=== PATIENT | male | born 1985 | race Caucasian/White ===

== ENCOUNTER 2023-12-20 16:40 | Emergency (ER) | payer BC, SELFPAY ==
[2023-12-20 16:43] VITALS: BP 112/86; BMI 28.5
--- NOTE | 2023-12-20 17:19 | ED.GENMED ---
History of Present Illness
General
Chief Complaint: Abdominal Symptoms
Time Seen by Provider: 12/20/23 17:16
Travel History
Have you had any contact with someone who has COVID-19?: No
Do you have any symptoms of coronavirus? Fever > 100 degrees, chills, cough, shortness of breath, sore throat, loss of taste or smell, muscle aches, or headache?: No
Past History
Past History
ED Past Medical History: Cancer (Brain CA) and Other (thyroidectomy, Adrenal insufficiency)
Social History
Tobacco: Non-smoker
Alcohol: None
Personal:
Living: with family
Phy Exam
Physical Exam
Physical Exam:
Physical Exam
General: no apparent distress, not acutely ill
Neck: No jaundice
Heart: Regular
Lungs: no acute respiratory distress. clear bilaterally
Abdomen: Nontender
Neuro: alert and oriented. no focal neurological deficits
Skin: no rash
Psychiatric: well kept. interactive and cooperative
Extremities: no edema. no calf tenderness.
Course
Orders/Labs/Results
Orders:
Orders
12/20/23 17:19
Electrocardiogram (*1) Stat
Reason for Study: Abdominal Pain
EKG- Treatment ONCE
Complete Blood Count/With Diff Urgent
Comprehensive Metabolic Panel Urgent
NSS 1000mL Bolus WIDE OPEN 0.9% Sodium Chloride 1000 ml [Nss] 1,000 ml IV BOLUS
Ondansetron Injectable [Zofran] 4 mg IV NOW STA
Vital Signs
Initial and Last Documented VS:
Initial Vital Signs
Temp Pulse Resp BP Pulse Ox
98.5 F 95 16 112/86 100
12/20/23 16:43 12/20/23 16:43 12/20/23 16:43 12/20/23 16:43 12/20/23 16:43
Last Documented Vital Signs
Temp Pulse Resp BP Pulse Ox
98.5 F 95 16 112/86 100
12/20/23 16:43 12/20/23 16:43 12/20/23 16:43 12/20/23 16:43 12/20/23 16:43
MDM/Problems Addressed
Differential Diagnosis Includes:
ACS stable angina unstable angina noncardiac chest pain doubt pneumothorax or PE by history physical
MDM/Problems Addressed:
Chest pain
Chronic conditions affecting care: CAD
Acute Exacerbation and/or Progression of Chronic Illness: CAD
*EKG
Interpreted by ED Provider?: Yes
Interpretation: abnormal
Comparison EKG: no comparison EKG present
Heart Rate: 78
Rate: normal
Rhythm: sinus
Ischemia: non-specific ST changes
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
Rate: normal
Interpretation: normal
Heart Rate: 78
ED Attending Note
-
Portions of this chart may have been created with voice recognition software.� Occasional wrong word or��sound alike� substitutions may have occurred due to the inherent limitations of voice recognition software.
Discharge Plan
Departure
Prescriptions:
No Action
levothyroxine 137 mcg Tablet
137 mcg PO DAILY
allopurinol 100 mg Tablet
100 mg PO DAILY
Androderm 4 mg/24 hr Patch 24 Hour
1 patch TRANSDERMAL QPM
metformin 1,000 mg Tablet
1,000 mg PO DAILY
hydrocortisone 10 mg Tablet
10 mg PO DAILY
fenofibrate 160 mg Tablet
160 mg PO DAILY
icosapent ethyl [Vascepa] 1 gram Capsule
2 g PO BID
amoxicillin-pot clavulanate 875-125 mg tablet
1 tab PO BID Qty: 10 0RF
Interventions
Interventions:
*Risk Screen - Suicide Last Done: 12/20/23 16:43
*Neglect/Abuse Screening Last Done: 12/20/23 16:43
*ED COVID-19 Vaccine History Last Done: 12/20/23 16:43
[2023-12-20 17:46] VITALS: BP 133/85
--- NOTE | 2023-12-20 17:49 | ED.GENMED ---
History of Present Illness
General
Chief Complaint: Abdominal Symptoms
Time Seen by Provider: 12/20/23 17:16
Travel History
Have you had any contact with someone who has COVID-19?: No
Do you have any symptoms of coronavirus? Fever > 100 degrees, chills, cough, shortness of breath, sore throat, loss of taste or smell, muscle aches, or headache?: No
History of Present Illness
History of Present Illness:
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 His father attempted to dose him with stress dose hydrocortisone at 25 mg orally however
he vomited probably administration. He denies any abdominal pain or diarrhea at this time. No ill contacts at home. 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
Past History
Past History
ED Past Medical History: Cancer (Brain CA) and Other (thyroidectomy, Adrenal insufficiency)
Social History
Tobacco: Non-smoker
Alcohol: None
Personal:
Living: with family
Review of Systems
Review of Systems
Allergies reviewed?: Yes
All Other Systems: ROS reviewed and negative except as documented in HPI and ROS
Phy Exam
Physical Exam
Physical Exam:
GEN: Well appearing, NAD, WDWN
Eyes: PERRLA, EOMs intact, no scleral icterus
HENT: NCAT, oral mucosa moist
Lungs: CTAB, no wheezes, rales, rhonchi, normal chest wall excursion
Cardiac: RRR, no M/R/G, no peripheral edema. Radial pulses 2+ bilat
Abdomen: S, NT, ND, NABS, no masses or hepatosplenomegaly
Neuro: AO x 3
MSK: No gross deformity or ecchymosis. No edema. No digital clubbing
Skin: No rashes, petechiae. Normal color, no pallor or jaundice.
Psych: Calm, cooperative, proper hygiene
Course
Orders/Labs/Results
Orders:
Orders
12/20/23 17:19
Electrocardiogram (*1) Stat
Reason for Study: Abdominal Pain
0.9% Sodium Chloride 1000 ml [Nss] 1,000 ml IV BOLUS
Ondansetron Injectable [Zofran] 4 mg IV NOW STA
12/20/23 17:25
Lactated Ringers [Lr] 1,000 ml IV BOLUS
12/20/23 17:26
Hydrocortisone Sod Succinate [Solu-Cortef] 100 mg IV NOW STA
12/20/23 17:27
Ondansetron Injectable [Zofran] 4 mg IV NOW STA
12/20/23 17:37
Complete Blood Count/With Diff Urgent
Comprehensive Metabolic Panel Urgent
Lipase Urgent
Abnormal Lab Results
12/20/23
17:37
RBC 4.32 L 10^6/uL
(4.70-6.10)
Hgb 12.9 L g/dL
(13.0-18.0)
Hct 34.3 L %
(39.0-52.0)
MCV 79.4 L fL
(80.0-94.0)
MCHC 37.6 H g/dL
(33.0-37.0)
Absolute Lymphs (auto) 0.7 L 10^3/uL
(1.2-3.4)
Neutrophils % 84.7 H %
(42.2-75.2)
Lymphocytes % 9.2 L %
(20.5-51.1)
Chloride 96 L mmol/L
(98-107)
Carbon Dioxide 31 H mmol/L
(22-30)
BUN 25 H mg/dl
(9-20)
Glucose 181 H mg/dl
(70-99)
Total Bilirubin 1.7 H mg/dl
(0.2-1.3)
AST 85 H U/L
(17-59)
ALT 114 H U/L
(0-50)
Total Protein 8.9 H g/dl
(6.3-8.2)
Albumin 5.5 H g/dl
(3.5-5.0)
12/20/23 17:37
12/20/23 17:37
Vital Signs
Initial and Last Documented VS:
Initial Vital Signs
Temp Pulse Resp BP Pulse Ox
98.5 F 95 16 112/86 100
12/20/23 16:43 12/20/23 16:43 12/20/23 16:43 12/20/23 16:43 12/20/23 16:43
Last Documented Vital Signs
Temp Pulse Resp BP Pulse Ox
98.5 F 85 16 118/91 96
12/20/23 16:43 12/20/23 20:09 12/20/23 20:09 12/20/23 20:00 12/20/23 20:09
MDM/Problems Addressed
MDM/Problems Addressed:
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 He does appear clinically well but certainly there is concern for adrenal crisis as he has not been able to tolerate his home stress dose hydrocortisone. He was
given 100 mg stress dosing here. He was observed with IV fluids and there was no significant change to his blood pressures, shock index improved. Suitable for discharge to home. Likely self-limited viral syndrome. Has no abdominal tenderness
warranting imaging
*Critical Care Note
Total Time (30-74mins, 75-104mins- exclusive of procedures): Not Applicable
ED Attending Note
-
Portions of this chart may have been created with voice recognition software.� Occasional wrong word or��sound alike� substitutions may have occurred due to the inherent limitations of voice recognition software.
Discharge Plan
Departure
Patient Disposition: Home (Routine Discharge)
Date of Disposition: 12/20/23
Time of Disposition: 20:21
Patient with high blood pressure during this ER visit?: No
Discharge Problem:
Gastroenteritis
Instructions: Nausea and Vomiting, Adult (DC)
Prescriptions:
New
ondansetron 4 mg tablet,disintegrating
4 mg PO TIDPRN PRN (Reason: nausea/vomiting) Qty: 10 0RF
No Action
levothyroxine 137 mcg Tablet
137 mcg PO DAILY
allopurinol 100 mg Tablet
100 mg PO DAILY
Androderm 4 mg/24 hr Patch 24 Hour
1 patch TRANSDERMAL QPM
metformin 1,000 mg Tablet
1,000 mg PO DAILY
hydrocortisone 10 mg Tablet
10 mg PO DAILY
fenofibrate 160 mg Tablet
160 mg PO DAILY
icosapent ethyl [Vascepa] 1 gram Capsule
2 g PO BID
amoxicillin-pot clavulanate 875-125 mg tablet
1 tab PO BID Qty: 10 0RF
Referrals:
Umair Mejia MD [Family Provider] -
Activity Restrictions/Additional Instructions:
Take 30mg hydrocortisone tomorrow
If symptoms improve, take 20mg on Thursday then resume your normal dosing thereafter
Return if you cannot keep fluids/medications down
Interventions
Interventions:
*Risk Screen - Suicide Last Done: 12/20/23 16:43
*Neglect/Abuse Screening Last Done: 12/20/23 16:43
ED- Fall Risk Assessment Last Done: 12/20/23 18:00
*ED COVID-19 Vaccine History Last Done: 12/20/23 16:43
*Nursing Disposition Last Done: 12/20/23 20:22
JB-Tjylwa-Tgwtucmqkh Assessment Last Done: 12/20/23 18:00
Discharge Date and Time
Discharge Date/Time: 12/20/23 20:23
[2023-12-20] MEDS: LR 1000 IV (18:02)
[2023-12-20] MEDS: SOLU-CORTEF 100 MG IV (18:03)
[2023-12-20] MEDS: ZOFRAN 4 MG IV (18:03)
[2023-12-20 18:14] LABS: % Basophils 0.4 % (0-2); % Eosinophils 1.7 % (0-6); % Immature Granulocytes 0.3 % (0-0.5); % Lymphocytes 9.2 % (20.5-51.1); % Monocytes 3.7 % (1.7-9.3); % Neutrophils 84.7 % (42.2-75.2); Absolute Eosinophils 0.1 10^3/uL (0-0.7); Absolute Lymphocytes 0.7 10^3/uL (1.2-3.4); Absolute Monocytes 0.3 10^3/uL (0.1-0.6); Hematocrit 34.3 % (39.0-52.0); Mean Corp Hgb Conc. 37.6 g/dL (33.0-37.0); Mean Corpuscular Hgb 29.9 pg (27.0-31.0); Mean Corpuscular Volume 79.4 fL (80.0-94.0); Mean Platelet Volume 10.1 fL (7.4-10.4); Nucleated Red Blood Cells % 0 % (-); Platelet Count 178 10^3/uL (130-400); Red Blood Cell Count 4.32 10^6/uL (4.70-6.10); Red Cell Dist. Width 13.1 % (11.5-14.5); White Blood Cell Count 7.1 10^3/uL (4.8-10.8)
[2023-12-20 18:25] LABS: ALT (SGPT) 114 U/L (0-50); AST (SGOT) 85 U/L (17-59); Albumin 5.5 g/dl (3.5-5.0); Alkaline Phosphatase 66 U/L (38-126); Blood Urea Nitrogen 25 mg/dl (9-20); Calcium 8.9 mg/dl (8.4-10.2); Carbon Dioxide 31 mmol/L (22-30); Chloride 96 mmol/L (98-107); Estimated Creatinine Clearance 91 ml/min; Glucose 181 mg/dl (70-99); Lipase 180 U/L (23-300); Potassium 4.1 mmol/L (3.5-5.1); Sodium 136 mmol/L (135-145); Total Bilirubin 1.7 mg/dl (0.2-1.3); Total Protein 8.9 g/dl (6.3-8.2); eGFR > 60.00
[2023-12-20 18:51] LABS: Hemoglobin 12.9 g/dL (13.0-18.0)
[2023-12-20 19:26] VITALS: BP 111/77
[2023-12-20 19:29] VITALS: BP 117/87
[2023-12-20 20:00] VITALS: BP 118/91
== END 2023-12-20 20:23 | disposition home or self-care (01) ==
LOC: EMR 16:40
PROVIDERS: Physician Assistant; EMERGENCY PHYSICIAN Emergency Medicine; FAMILY PHYSICIAN Family Medicine
DX: K52.9 Noninfective gastroenteritis and colitis, unspecified (principal); R11.2 Nausea with vomiting, unspecified; E23.0 Hypopituitarism; E27.40 Unspecified adrenocortical insufficiency; Z85.841 Personal history of malignant neoplasm of brain
CPT/HCPCS: 99283; 96374; 96375; 80053; 83690; 85025

== ENCOUNTER 2024-09-01 07:13 | Emergency (ER) | payer BC, SELFPAY ==
[2024-09-01] VITALS (7 sets, daily range): BP systolic 100–124; BP diastolic 65–80; BMI 29.6
--- NOTE | 2024-09-01 07:46 | ED.GENMED ---
History of Present Illness
General
Chief Complaint: Fever
Source: patient and family
Exam Limitations: none
Time Seen by Provider: 09/01/24 07:27
History of Present Illness
History of Present Illness:
pt is a 39 y/o M with h/o panhypopituitarism on hydrocortisone
brain tumor age 2 s/p resection
here with nausea/vomiting x 3 and fever/chils this morning
went to bed feeling well
daughter also has fever and belly pain but no vomiting
at 3 am nausea woke him up. by 5 am he had temp 99. took 1000 mg of tylenol and 20 mg hydrocortisone
then took all daily meds at 5:25
and promptly vomited, 3 times
then he did take another 20 mg dose of hydrocortisone at 5:35 am
temp rising
so he is here
he doesn't feel very ill
no abdominal pain, sore throat, cough.
no diarrhea
Past History
Past History
ED Past Medical History: Cancer (Brain CA) and Other (thyroidectomy, Adrenal insufficiency)
Social History
Tobacco: Non-smoker
Alcohol: None
Personal:
Living: with family
Review of Systems
Review of Systems
Allergies reviewed?: Yes
All Other Systems: Not applicable
Phy Exam
Physical Exam
Physical Exam:
GENERAL: Alert , in no apparent distress, very well appearing
EYE: pupils equal and reactive
NECK: Supple
ENT: o/p clr, mmm.
[employer] [place] wears hearing aides
CARDIAC: tachy, no murmur
LUNGS: Clear breath sounds bilaterally, no acute respiratory distress, no wheezes/rales/rhonchi
ABDOMEN: Soft, without focal tenderness, no r/g, no cvat, normal bowel sounds
NEUROLOGICAL: Alert and oriented, no focal neuro deficits
SKIN: Warm and dry, skin intact.
MUSCULOSKELETAL: No edema, well perfused. neg fabio's sign
PSYCH: Normal and appropriate interaction.
Course
Orders/Labs/Results
Orders:
Orders
09/01/24 07:39
0.9% Sodium Chloride 1000 ml [Nss] 1,000 ml IV BOLUS
Hydrocortisone Sod Succinate [Solu-Cortef] 100 mg IV NOW STA
Ondansetron Injectable [Zofran] 4 mg IV NOW STA
09/01/24 07:46
Ibuprofen [Motrin] 600 mg PO NOW STA
09/01/24 08:09
COVID-19 Antigen Urgent
Source: Nasal Swab
Complete Blood Count/With Diff Urgent
Comprehensive Metabolic Panel Urgent
Lactic Acid Q4H
Comment: CANCEL 2nd LACTIC ACID IF 1st LACTIC ACID IS LESS THAN 2
Lipase Urgent
Blood Culture Urgent
MOIRA Source: Blood/Venous
Specimen Description:
Influenza A+B Rapid Molecular Urgent
MOIRA Source: Nasal Swab
Specimen Description:
09/01/24 09:42
0.9% Sodium Chloride 1000 ml [Nss] 1,000 ml IV BOLUS
09/01/24 11:24
Urinalysis Reflex To Culture Urgent
Date Specimen was Collected: 09/01/24
Time Specimen was Collected: 10:48
09/01/24 11:45
Lactic Acid Q4H
Comment: CANCEL 2nd LACTIC ACID IF 1st LACTIC ACID IS LESS THAN 2
Abnormal Lab Results
09/01/24 09/01/24
08:09 11:45
RBC 4.33 L 10^6/uL
(4.70-6.10)
Hgb 12.1 L g/dL
(13.0-18.0)
Hct 34.4 L %
(39.0-52.0)
MCV 79.4 L fL
(80.0-94.0)
Absolute Lymphs (auto) 0.5 L 10^3/uL
(1.2-3.4)
Neutrophils % 87.0 H %
(42.2-75.2)
Lymphocytes % 6.2 L %
(20.5-51.1)
Chloride 96 L mmol/L
(98-107)
BUN 23 H mg/dl
(9-20)
Glucose 187 H mg/dl
(70-99)
Lactic Acid 2.4 H mmol/L 2.3 H mmol/L
(0.7-2.0) (0.7-2.0)
Calcium 7.8 L mg/dl
(8.4-10.2)
09/01/24 08:09
09/01/24 08:09
Vital Signs
Initial and Last Documented VS:
Initial Vital Signs
Temp Pulse Resp BP Pulse Ox
100.4 F H 114 18 100/65 98
09/01/24 07:15 09/01/24 07:15 09/01/24 07:15 09/01/24 07:15 09/01/24 07:15
Last Documented Vital Signs
Temp Pulse Resp BP Pulse Ox
99.2 F 71 18 112/74 96
09/01/24 09:37 09/01/24 12:00 09/01/24 07:15 09/01/24 12:00 09/01/24 10:00
MDM/Problems Addressed
Differential Diagnosis Includes:
gastroenteritis, covid,, flu, uti, sepsis
MDM/Problems Addressed:
39 y/o M with adrenal insuff
prior brain turmo resection
here with n/v and chilld/fever this morning
vomited his hydrocortisone dose x 2 and then was able to keep one dose down
having no pain
feels better on arrival
temp treated with tylenol
his daughter has a fever and belly pain too so he is presuming ther is a virus
pt is febrile on arrival, mildly tachy with borderling low bp 100s
but he is extremely well appearing
abd nontender
no other concerning infectious signs
d/w ed attending
will treat with stress dose steroids, w/u with lactate and cultures
if pt is persistently hypotensive, willl require admission
lactate eleavrted 2.4 but pt is on metformin
wbc normal with left shift
covid and flu neg
will check UA
bg 180s which is typical for him
will hydrate, observe, recheck lactic
lactic minimally improved; not cleared but not worse and d/w ed attending, likely related to his metofmrin use
bp is much improved
pt tolerated po fluids and would like to go home with understanding to return if worse or vomiting.
*Critical Care Note
Total Time (30-74mins, 75-104mins- exclusive of procedures): Not Applicable
ED Attending Note
-
Portions of this chart may have been created with voice recognition software.� Occasional wrong word or��sound alike� substitutions may have occurred due to the inherent limitations of voice recognition software.
Discharge Plan
Departure
Patient Disposition: Home (Routine Discharge)
Date of Disposition: 09/01/24
Time of Disposition: 12:15
Patient with high blood pressure during this ER visit?: No
Condition: Fair
Covid-19: Not Applicable
Discharge Problem:
Gastroenteritis
Instructions: Viral gastroenteritis in adults, Viral Syndrome (DC)
Prescriptions:
New
ondansetron 4 mg tablet,disintegrating
4 mg PO TID PRN (Reason: nausea and vomiting) 1 Days Qty: 2 0RF
No Action
levothyroxine 137 mcg Tablet
137 mcg PO DAILY
allopurinol 100 mg Tablet
100 mg PO DAILY
Androderm 4 mg/24 hr Patch 24 Hour
1 patch TRANSDERMAL QPM
metformin 1,000 mg Tablet
1,000 mg PO DAILY
hydrocortisone 10 mg Tablet
10 mg PO DAILY
fenofibrate 160 mg Tablet
160 mg PO DAILY
icosapent ethyl [Vascepa] 1 gram Capsule
2 g PO BID
amoxicillin-pot clavulanate 875-125 mg tablet
1 tab PO BID Qty: 10 0RF
ondansetron 4 mg tablet,disintegrating
4 mg PO TIDPRN PRN (Reason: nausea/vomiting) Qty: 10 0RF
Referrals:
Umair Mejia MD [Family Provider] - Follow up in 2-3 days
Activity Restrictions/Additional Instructions:
CONTINUE YOUR MEDICATIONS
WATCH YOUR SYMPTOMS CLOSELY
RETURN FOR VOMITING/INABILITY TO KEEP DOWN LIQUIDS AND MEDICATIONS, HIGH FEVER NOT RESPONDING TO TYLENOL, LOW BLOOD PRESSURE/WEAKNESS, ABDOMINAL PAIN, SHAKING CHILLS ETC
OTHERWISE YOU CAN TAKE ZOFRAN EVERY 8 HOURS NEEDED FOR NAUSEA
BUT PLEASE HAVE LOW THRESHOLD TO RETURN IF WORSE
Interventions
Interventions:
*Risk Screen - Suicide Last Done: 09/01/24 07:15
*General Assessment Last Done: 09/01/24 07:38
*Neglect/Abuse Screening Last Done: 09/01/24 07:15
*Nursing Disposition Last Done: 09/01/24 12:35
ED- Neurological Assessment Last Done: 09/01/24 08:44
ED-Skin Assessment Last Done: 09/01/24 08:44
Discharge Date and Time
Discharge Date/Time: 09/01/24 12:35
Print Language: LATVIAN
[2024-09-01] MEDS: NSS 1000 IV ×2 (08:13→10:08)
[2024-09-01] MEDS: ZOFRAN 4 MG IV (08:14)
[2024-09-01] MEDS: MOTRIN 600 MG PO (08:14)
[2024-09-01] MEDS: SOLU-CORTEF 100 MG IV (08:14)
[2024-09-01 08:43] LABS: % Basophils 0.4 % (0-2); % Eosinophils 1.2 % (0-6); % Immature Granulocytes 0.4 % (0-0.5); % Lymphocytes 6.2 % (20.5-51.1); % Monocytes 4.8 % (1.7-9.3); Absolute Eosinophils 0.1 10^3/uL (0-0.7); Absolute Lymphocytes 0.5 10^3/uL (1.2-3.4); Absolute Monocytes 0.4 10^3/uL (0.1-0.6); Absolute Neutrophils 6.3 10^3/uL (1.4-6.5); Hematocrit 34.4 % (39.0-52.0); Hemoglobin 12.1 g/dL (13.0-18.0); Mean Corp Hgb Conc. 35.2 g/dL (33.0-37.0); Mean Corpuscular Hgb 27.9 pg (27.0-31.0); Mean Corpuscular Volume 79.4 fL (80.0-94.0); Mean Platelet Volume 9.8 fL (7.4-10.4); Nucleated Red Blood Cells % 0 % (-); Platelet Count 178 10^3/uL (130-400); Red Blood Cell Count 4.33 10^6/uL (4.70-6.10); White Blood Cell Count 7.3 10^3/uL (4.8-10.8)
[2024-09-01 08:47] LABS: COVID-19 Antigen Negative (Negative)
[2024-09-01 08:50] LABS: ALT (SGPT) 47 U/L (0-50); AST (SGOT) 44 U/L (17-59); Albumin 4.7 g/dl (3.5-5.0); Alkaline Phosphatase 50 U/L (38-126); Blood Urea Nitrogen 23 mg/dl (9-20); Calcium 7.8 mg/dl (8.4-10.2); Carbon Dioxide 27 mmol/L (22-30); Chloride 96 mmol/L (98-107); Estimated Creatinine Clearance 116 ml/min; Glucose 187 mg/dl (70-99); Lipase 126 U/L (23-300); Potassium 3.8 mmol/L (3.5-5.1); Sodium 138 mmol/L (135-145); Total Protein 7.3 g/dl (6.3-8.2); eGFR > 60.00
[2024-09-01 08:54] LABS: Lactic Acid 2.4 mmol/L (0.7-2.0)
[2024-09-01 12:04] LABS: Urine Albumin Negative (Neg - Trace); Urine Bilirubin Negative (Negative); Urine Character Clear (Clear); Urine Color Yellow; Urine Glucose Negative (Negative); Urine Ketone Negative (Negative); Urine Leukocyte Negative (Negative); Urine Nitrite Negative (Negative); Urine Occult Blood Negative (Negative); Urine Specific Gravity 1.005 (<1.030); Urine Urobilinogen Negative (Neg - 1+); Urine pH 6.5 (5.0-9.0)
[2024-09-01 12:08] LABS: Lactic Acid 2.3 mmol/L (0.7-2.0)
== END 2024-09-01 12:35 | disposition home or self-care (01) ==
LOC: EMR 07:13
PROVIDERS: Physician Assistant; EMERGENCY PHYSICIAN Emergency Medicine; FAMILY PHYSICIAN Family Medicine
DX: K52.9 Noninfective gastroenteritis and colitis, unspecified (principal); E23.0 Hypopituitarism; E27.40 Unspecified adrenocortical insufficiency; Z85.841 Personal history of malignant neoplasm of brain
CPT/HCPCS: 99283; 96374; 96375; 96361; 80053; 81003; 83605; 83690; 85025; 87040; 87502; 87811

== ENCOUNTER 2025-06-10 13:11 | Inpatient (IN) | payer BC, SELFPAY ==
[2025-06-10] VITALS (16 sets, daily range): BP systolic 57–124; BP diastolic 47–88; PULSE 90–105; BMI 28.8; BMI 29.2
--- NOTE | 2025-06-10 09:03 | ED.GENMED ---
History of Present Illness
<Kathie Dyson MD, Resident - Last Filed: 06/10/25 12:24>
General
Chief Complaint: Fainting/Passed Out
Source: patient
Time Seen by Provider: 06/10/25 08:43
History of Present Illness
History of Present Illness:
Mr. 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 He
reports that he does not remember the incident nor what happened before or after. He does endorse feeling congested and having a gurgly cough for the last 2 days. His is recovering from a cold (DayQuil/NyQuil helped) and he thinks that he
caught it this week. He also reports getting a nosebleed last night, which is unusual for him. This lasted about 2 minutes. Per EMS, this morning he was walking to the bathroom and had a syncopal event. By the time his got up stories to
him, he was already awake and did not remember what happened. He thinks he may have hit his head. He denies fevers, chills, nausea, vomiting, pain, vision changes, changes in diet, or /GI symptoms.
UPDATE @ 9:30 AM: Spoke to his Rebekah over the phone to gather more history. She states Víctor woke up around 5 AM with a nosebleed that lasted about 2 minutes. She reports it is common for him and he went back to sleep. Later in the morning
when she woke up, she reports that Víctor greeted her downstairs and seemed completely fine to her. He went upstairs to get laundry and it was at that time that she heard a loud thud. She reports running upstairs to find him passed out on the
bathroom floor. She reports having to shake him for 20 to 30 seconds before he started to wake up. She reports that he was confused and disoriented for a few minutes afterwards and had a huge 'egg' on his forehead from his fall. She states that
by the time EMS showed up, Víctor was completely alert and oriented, and this is his baseline. Rebekah does not know for sure if Víctor took his morning medications, but states that he told her that he took them. She endorses that he has had a cold
this week but no fevers nor vomiting, which are usual clues for his family that Víctor needs to seek care for acute on chronic adrenal insufficiency.
Past History
<Kathie Dyson MD, Resident - Last Filed: 06/10/25 12:24>
Past History
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
ED Past Surgical History: Brain (Tumor resection in marker delivery) and Other (Thyroidectomy)
Social History
Tobacco: Non-smoker
Alcohol: None
Personal:
Living: with family
Review of Systems
<Kathie Dyson MD, Resident - Last Filed: 06/10/25 12:24>
Review of Systems
All Other Systems: ROS reviewed and negative except as documented in HPI and ROS
EENT: Reports other (Dried blood in nares and on lips, dry mucous membranes)
Respiratory: Reports cough
Phy Exam
<Kathie Dyson MD, Resident - Last Filed: 06/10/25 12:24>
General Physical Exam
General Presentation: well appearing and no apparent distress
General Skin: warm and dry
General Habitus: normal
General Mental: other (Alert, but intermittently confused and contradicts his self-reported history)
General Hydration: dry mucous membranes
ENT Exam
ENT Exam: other (Dried blood in nares right worse than left, dried blood in mouth, slight swelling and erythema on the left forehead secondary to fall)
Cardiovascular Exam
Cardiovascular Exam: regular rate/rhythm and no edema
Pulmonary Exam
Pulmonary Exam: lungs clear, no respiratory distress, no rales, chest non tender, no crackles, no rhonchi and no wheezing
Neurological Exam
Neurological Exam: alert and confused (Intermittently contradicts his self-reported history, not his baseline per )
Musculoskeletal Exam
Musculoskeletal Exam: full ROM
Skin Exam
Skin Exam: normal color and warm/dry
Course
<ruthy Dyson MD, Resident - Last Filed: 06/10/25 12:24>
Orders/Labs/Results
Orders:
Orders
06/10/25 08:46
EKG [Electrocardiogram (*1)] Urgent
Reason for Study: Chest Pain
EKG- Treatment ONCE
06/10/25 09:00
COVID-19 Antigen Urgent
Source: Nasal Swab
Complete Blood Count/With Diff Urgent
Comprehensive Metabolic Panel Urgent
Cortisol, Random Urgent
Creatine Phosphokinase Urgent
Comment: ADD
Influenza A+B Rapid Molecular Urgent
MOIRA Source: Nasal Swab
Specimen Description:
06/10/25 09:11
Orthostatic VS- Treatment ONCE
06/10/25 09:13
Add On- LAB Urgent
Tests Added?: cortisol
06/10/25 09:20
CR Chest - 2 Views Urgent
Comment:
Reason For Exam: cough, congestion
06/10/25 09:37
CT Head W/o Iv Contrast Urgent
Comment:
Reason For Exam: fall
06/10/25 09:41
Add On- LAB Urgent
Tests Added?: CPK
06/10/25 10:36
Hydrocortisone Sod Succinate [Solu-Cortef] 100 mg IV NOW STA
06/10/25 10:37
0.9% Sodium Chloride 1000 ml [Nss] 1,000 ml IV BOLUS
06/10/25 10:51
Acetaminophen [Tylenol] 650 mg PO NOW STA
06/10/25 12:30
Blood Culture Q30M
MOIRA Source: Blood/Venous
Specimen Description:
06/10/25 12:40
Admit/Transfer Patient As Directed
Co-Sign Provider:
Level of Care: Inpatient admission
Assign to:: Telemetry
Physician / Group: htay
Diagnosis: syncope, dehydration , URTI, Fever , adrenal insufficiency
Reason for Telemetry: Syncope
Date to Stop Telemetry: 06/12/25
Time to Stop Telemetry: 11:00
Reason for Hospitalization: syncope, dehydration , URTI, Fever , adrenal insufficiency
Expected length of stay greater than two midnights?: Yes
ELOS- Estimated Length of Stay in days: 2
I certify the patient meets the requirements for IP care: Yes
06/10/25 12:43
Code Status As Directed
Resuscitation Status: Full Code
06/10/25 13:00
Blood Culture Q30M
MOIRA Source: Blood/Venous
Specimen Description:
06/12/25 11:00
DC Protocol for Telemetry ONCE
Abnormal Lab Results
06/10/25
09:00
RBC 4.50 L 10^6/uL
(4.70-6.10)
Hgb 12.5 L g/dL
(13.0-18.0)
Hct 35.3 L %
(39.0-52.0)
MCV 78.4 L fL
(80.0-94.0)
Immature Gran % 0.6 H %
(0-0.5)
Lymphocytes % 18.0 L %
(20.5-51.1)
Chloride 94 L mmol/L
(98-107)
Carbon Dioxide 32 H mmol/L
(22-30)
Glucose 337 H mg/dl
(70-99)
Calcium 8.1 L mg/dl
(8.4-10.2)
Total Bilirubin 1.4 H mg/dl
(0.2-1.3)
AST 93 H U/L
(17-59)
ALT 154 H U/L
(0-50)
Creatine Kinase 640 H U/L
(55-170)
Total Protein 8.5 H g/dl
(6.3-8.2)
Albumin 5.1 H g/dl
(3.5-5.0)
06/10/25 09:00
06/10/25 09:00
Vital Signs
Initial and Last Documented VS:
Initial Vital Signs
Temp Pulse Resp BP Pulse Ox
36.7 C 74 16 114/72 98
06/10/25 08:41 06/10/25 08:41 06/10/25 08:41 06/10/25 08:41 06/10/25 08:41
Last Documented Vital Signs
Temp Pulse Resp BP Pulse Ox
38.9 C H 104 20 101/74 93
06/10/25 12:15 06/10/25 12:30 06/10/25 12:15 06/10/25 12:00 06/10/25 12:30
<Steve Barroso MD - Last Filed: 06/10/25 12:53>
Orders/Labs/Results
Orders:
Orders
06/10/25 08:46
EKG [Electrocardiogram (*1)] Urgent
Reason for Study: Chest Pain
EKG- Treatment ONCE
06/10/25 09:00
COVID-19 Antigen Urgent
Source: Nasal Swab
Complete Blood Count/With Diff Urgent
Comprehensive Metabolic Panel Urgent
Cortisol, Random Urgent
Creatine Phosphokinase Urgent
Comment: ADD
Influenza A+B Rapid Molecular Urgent
MOIRA Source: Nasal Swab
Specimen Description:
06/10/25 09:11
Orthostatic VS- Treatment ONCE
06/10/25 09:13
Add On- LAB Urgent
Tests Added?: cortisol
06/10/25 09:20
CR Chest - 2 Views Urgent
Comment:
Reason For Exam: cough, congestion
06/10/25 09:37
CT Head W/o Iv Contrast Urgent
Comment:
Reason For Exam: fall
06/10/25 09:41
Add On- LAB Urgent
Tests Added?: CPK
06/10/25 10:36
Hydrocortisone Sod Succinate [Solu-Cortef] 100 mg IV NOW STA
06/10/25 10:37
0.9% Sodium Chloride 1000 ml [Nss] 1,000 ml IV BOLUS
06/10/25 10:51
Acetaminophen [Tylenol] 650 mg PO NOW STA
06/10/25 12:30
Blood Culture Q30M
MOIRA Source: Blood/Venous
Specimen Description:
06/10/25 12:40
Admit/Transfer Patient As Directed
Co-Sign Provider:
Level of Care: Inpatient admission
Assign to:: Telemetry
Physician / Group: htay
Diagnosis: syncope, dehydration , URTI, Fever , adrenal insufficiency
Reason for Telemetry: Syncope
Date to Stop Telemetry: 06/12/25
Time to Stop Telemetry: 11:00
Reason for Hospitalization: syncope, dehydration , URTI, Fever , adrenal insufficiency
Expected length of stay greater than two midnights?: Yes
ELOS- Estimated Length of Stay in days: 2
I certify the patient meets the requirements for IP care: Yes
06/10/25 12:43
Code Status As Directed
Resuscitation Status: Full Code
06/10/25 13:00
Blood Culture Q30M
MOIRA Source: Blood/Venous
Specimen Description:
06/12/25 11:00
DC Protocol for Telemetry ONCE
Abnormal Lab Results
06/10/25
09:00
RBC 4.50 L 10^6/uL
(4.70-6.10)
Hgb 12.5 L g/dL
(13.0-18.0)
Hct 35.3 L %
(39.0-52.0)
MCV 78.4 L fL
(80.0-94.0)
Immature Gran % 0.6 H %
(0-0.5)
Lymphocytes % 18.0 L %
(20.5-51.1)
Chloride 94 L mmol/L
(98-107)
Carbon Dioxide 32 H mmol/L
(22-30)
Glucose 337 H mg/dl
(70-99)
Calcium 8.1 L mg/dl
(8.4-10.2)
Total Bilirubin 1.4 H mg/dl
(0.2-1.3)
AST 93 H U/L
(17-59)
ALT 154 H U/L
(0-50)
Creatine Kinase 640 H U/L
(55-170)
Total Protein 8.5 H g/dl
(6.3-8.2)
Albumin 5.1 H g/dl
(3.5-5.0)
06/10/25 09:00
06/10/25 09:00
Vital Signs
Initial and Last Documented VS:
Initial Vital Signs
Temp Pulse Resp BP Pulse Ox
36.7 C 74 16 114/72 98
06/10/25 08:41 06/10/25 08:41 06/10/25 08:41 06/10/25 08:41 06/10/25 08:41
Last Documented Vital Signs
Temp Pulse Resp BP Pulse Ox
38.9 C H 104 20 101/74 93
06/10/25 12:15 06/10/25 12:30 06/10/25 12:15 06/10/25 12:00 06/10/25 12:30
<Kathie Dyson MD, Resident - Last Filed: 06/10/25 12:24>
MDM/Problems Addressed
Differential Diagnosis Includes:
Generalized weakness/dizziness secondary to infection
COVID 19
Dehydration
Hypoglycemia
Orthostatic hypotension
Adrenal insufficiency, acute on chronic
Seizure
MDM/Problems Addressed:
Mr. 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 Per phone call with his , she
confirms that Víctor has had a cold this week and was passed out for 20 to 30 seconds, hit his head, and was confused after.
#Syncope
#History of panhypopituitarism and diabetes
#Cough
Based on the collective history, it is possible that Víctor had a seizure, although acute on chronic adrenal insufficiency remains high on the differential along with orthostatic hypotension and hypoglycemia.
- COVID-19 (-) and flu test (-)
- CBC WNL, CMP pertinent for glucose 337, AST 93, ALT 154, CPK 640H
- Follow-up random cortisol
- CXR 06/10: No acute cardiopulmonary process.
- NC head CT 06/10: No acute intracranial process.
- Positive, symptomatic orthostatic VS by BP: 1L NSS bolus
- IV hydrocortisone 100 mg and Tylenol 650 mg once
--Failed to improve on these and also had a fever of 102F later on in the day as stated in the update note. We will admit to hospitalist team for further evaluation and treatment.
--Follow-up blood cultures.
- Consider adding Mucinex versus antibiotics (pending cultures/clinical concern for bacterial infection) given congestion and now fever.
<Kathie Dyson MD, Resident - Last Filed: 06/10/25 12:24>
*Pulse Oximetry
SaO2: 98
Oxygen Mode of Delivery: Room air
Patient hypoxic: no
*Critical Care Note
Total Time (30-74mins, 75-104mins- exclusive of procedures): Not Applicable
<Kathie Dyson MD, Resident - Last Filed: 06/10/25 12:24>
Update Note
Update Note:
11:55 AM: Family is bedside and he is receiving IV hydrocortisone 100 mg without much symptomatic improvement. Per family, this is unusual as Mr. Knutson usually perks up shortly after initiation of IV steroids. Will continue to monitor and likely
admit for observation. He also had a fever. We will admit to hospitalist team for further evaluation and management.
ED Attending Note
<Kathie Dyson MD, Resident - Last Filed: 06/10/25 12:24>
-
Portions of this chart may have been created with voice recognition software.� Occasional wrong word or��sound alike� substitutions may have occurred due to the inherent limitations of voice recognition software.
<Steve Barroso MD - Last Filed: 06/10/25 12:53>
ED Attending Note
Patient seen and examined by attending physician: Yes
I performed a history and physical exam of patient and discussed management with resident, I reviewed resident's note and agree with documented findings and plan of care.: Yes
ED Attending Note:
I have seen and evaluated the patient with a [id number] encounter. I have spoken to the resident and involved in the medical history, the physical exam, medical decision making.
Evaluation and management service: agree unless noted differently below.
Results interpretation: agree unless noted differently below.
Focused HPI: 40-year-old male with history of adrenal insufficiency, hypothyroidism, diabetes presents to the ER for evaluation after apparent syncopal event. Patient reportedly was in the bathroom getting ready to brush his teeth and passed out.
His reports that she heard him fall down and went up and found him on the ground. He was very weak and lethargic. He has been sick with mild URI symptoms over the past week. says that clinical picture is consistent with prior episodes
of adrenal insufficiency. He is on hydrocortisone 100 mg twice daily reportedly did not take his morning dose. Apparently he did have a nosebleed last night which is not unusual for him and accounts for dried blood in his nares.
Physical exam: Patient is somewhat lethargic but arousable. Vital signs as noted. His orthostatic vital signs were markedly positive. No cardiac rubs gallops or murmurs appreciated lungs sound clear. His mucous membranes are dry. He does have
some dried blood in nares bilaterally and mild contusion of the left forehead.
Medical Decision Makin-year-old male presents after apparent syncopal event this morning in the setting of recent URI symptoms. Vitals and exam as above notable for markedly positive orthostatic vital signs. Initial labs were sent off
including a CBC which shows marginal but stable anemia. CMP shows significant hyperglycemia but no acidosis to suggest DKA. Add CPK. Check random cortisol. Check viral swabs, chest x-ray to rule out pneumonia. Check CT head. Provide IV
Solu-Cortef and fluids. Suspect syncope in the setting of adrenal insufficiency likely related to recent illness.
CT head negative for any acute pathology. Chest x-ray shows no pneumonia. COVID and flu swabs negative. Continue to monitor.
Patient spiked fever here given Tylenol. Blood culture sent off. At this point no clear bacterial infection it sounds like likely URI. Hold on antibiotics for now. He is still somewhat lethargic and lightheaded will plan to admit for continued
monitoring, would continue steroids for possible adrenal insufficiency in the setting of his acute illness. Seizure also consideration but considered less likely�no seizure history and CT head normal. Discussed case with hospitalist.
Discharge Plan
Departure
Patient Disposition: Admit
Date of Disposition: 06/10/25
Time of Disposition: 12:16
Admit to: Med/Surg
Presentation/result/management discussed w/ accepting MD/DO: Hospitalist
Condition: Fair
Discharge Problem:
Acute on chronic adrenal insufficiency, Syncope and collapse, Orthostatic hypotension, Fever, Acute alteration in mental status
Prescriptions:
No Action
levothyroxine 137 mcg Tablet
137 mcg PO DAILY
allopurinol 100 mg Tablet
100 mg PO DAILY
Androderm 4 mg/24 hr Patch 24 Hour
1 patch TRANSDERMAL QPM
metformin 1,000 mg Tablet
1,000 mg PO DAILY
hydrocortisone 10 mg Tablet
10 mg PO DAILY
fenofibrate 160 mg Tablet
160 mg PO DAILY
icosapent ethyl [Vascepa] 1 gram Capsule
2 g PO BID
amoxicillin-pot clavulanate 875-125 mg tablet
1 tab PO BID Qty: 10 0RF
ondansetron 4 mg tablet,disintegrating
4 mg PO TIDPRN PRN (Reason: nausea/vomiting) Qty: 10 0RF
ondansetron 4 mg tablet,disintegrating
4 mg PO TID PRN (Reason: nausea and vomiting) 1 Days Qty: 2 0RF
Referrals:
UNKNOWN - PT DOES,NOT KNOW [Family Provider]
Interventions
Interventions:
*Risk Screen - Suicide Last Done: 06/10/25 09:11
*General Assessment Last Done: 06/10/25 09:11
*Neglect/Abuse Screening Last Done: 06/10/25 09:11
*ED- Fall Risk Assessment Last Done: 06/10/25 09:11
ED- Cardiac Assessment Last Done: 06/10/25 09:11
ED- Neurological Assessment Last Done: 06/10/25 09:11
Discharge Date and Time
Print Language: LATVIAN
[2025-06-10 09:18] LABS: Hematocrit 35.3 % (39.0-52.0); Hemoglobin 12.5 g/dL (13.0-18.0); Mean Corp Hgb Conc. 35.4 g/dL (33.0-37.0); Mean Corpuscular Volume 78.4 fL (80.0-94.0); Nucleated Red Blood Cells % 0 % (-); Platelet Count 169 10^3/uL (130-400); Red Cell Dist. Width 13.5 % (11.5-14.5)
[2025-06-10 09:25] LABS: ALT (SGPT) 154 U/L (0-50); AST (SGOT) 93 U/L (17-59); Albumin 5.1 g/dl (3.5-5.0); Alkaline Phosphatase 125 U/L (38-126); Blood Urea Nitrogen 19 mg/dl (9-20); Calcium 8.1 mg/dl (8.4-10.2); Carbon Dioxide 32 mmol/L (22-30); Chloride 94 mmol/L (98-107); Glucose 337 mg/dl (70-99); Potassium 3.7 mmol/L (3.5-5.1); Sodium 135 mmol/L (135-145); Total Protein 8.5 g/dl (6.3-8.2); eGFR > 60.00
[2025-06-10 09:31] LABS: COVID-19 Antigen Negative (Negative)
[2025-06-10] MEDS: NSS 1000 IV ×2 (10:44→15:18)
[2025-06-10] MEDS: SOLU-CORTEF 100 MG IV ×3 (10:44→23:04)
[2025-06-10] MEDS: TYLENOL 650 MG PO (10:55)
[2025-06-10 11:47] LABS: Cortisol, Random 1.2 ug/dl
--- NOTE | 2025-06-10 12:21 | HPS.HSE ---
Family Physician
-
Family Physician: NOT KNOW UNKNOWN - PT DOES
Chief Complaint
-
Fall, passed out, URI like s/s , T 102 at ER
History of Present Illness
HPI
40M HX panhypopituitarism with adrenal insuffiency on chronic steroids, diabetes, and hypothyroidism secondary to thyroid resection for thyroid cancer seen at ER
- presents after an episode of unwitnessed syncope where he possibly hit his head.
- he does not remember the incident nor what happened before or after.
- endorse feeling congested and having a gurgly cough for the last 2 days
- contact exposure to is recovering from a cold (DayQuil/NyQuil helped) -
- a nosebleed last night lasted about 2 minutes.
Per EMS, this morning he was walking to the bathroom and had a syncopal event.
- By the time his got up to him, he was already awake and did not remember what happened.
- He thinks he may have hit his head.
ROS
denies fevers, chills, nausea, vomiting, pain, vision changes, changes in diet, or /GI symptoms.
Medical History
Past Medical History
Past Medical History: Reports Other
Additional Past Medical History:
Brain CA at age 1 - with surgery, radiation and chemo.
thyroidectomy,
Adrenal insufficiency
Very hard of hearing
Past Surgical History: Reports Other
Additional Past Surgical History:
brain surgery
Social History
Tobacco: Non-smoker
Alcohol: None
Drug: None
Personal:
Living: With Family
Employment: Employed
Family History
Family History: Not pertinent
Allergies / Home Medications
Allergies reflects when Allergies were last updated in [facility].
Home Medications with original date entered in [facility] [employer]
Allergy/Medication List:
Allergies
Allergy/AdvReac Type Severity Reaction Status Date / Time
No Known Allergies Allergy Unverified 12/06/22 19:31
Home Medications
allopurinol 100 mg tablet 100 mg PO DAILY 12/06/22
fenofibrate 160 mg tablet 160 mg PO DAILY 12/06/22
hydrocortisone 10 mg tablet 10 mg PO DAILY 12/06/22
icosapent ethyl 1 gram capsule (Vascepa) 2 g PO BID 12/06/22
levothyroxine 137 mcg tablet 137 mcg PO DAILY 12/06/22
metformin 1,000 mg tablet 1,000 mg PO DAILY 12/06/22
testosterone 4 mg/24 hr transdermal 24 hour patch (Androderm) 1 patch transdermal QPM 12/06/22
Review of Systems
-
Constitutional: Reports Fever
EENT: Reports See HPI
Respiratory: Reports See HPI
Cardiac: Reports No Symptoms
Abdomen/GI: Reports No Symptoms
: Reports No Symptoms
Musculoskeletal: Reports No Symptoms
Skin: Reports No Symptoms
Neurological: Reports No Symptoms, See HPI and Other (syncope )
Endocrine: Reports No Symptoms
Hematologic/Lymphatic: Reports No Symptoms
Psych: Reports No Symptoms
Physical Exam
Vital Signs
Vital Signs
Temp Pulse Resp BP Pulse Ox
102.1 F H 114 20 118/78 93
06/10/25 12:15 06/10/25 12:15 06/10/25 12:15 06/10/25 11:00 06/10/25 12:15
Physical Exam
General: Well Developed, Well Nourished and No Apparent Distress
HEENT: NormoCephalic, Moist mucous membranes and Atraumatic
Respiratory: Clear
Cardiac: S1/S2, Regular Rhythm, Tachycardia and Other (relative hypotension ); No Murmur or Rub
GI: Soft, Non Tender, Non Distended and Normal Bowel Sounds; No Organomegaly
Rectal: Deferred by Provider
Musculoskeletal: No Clubbing, No Cyanosis and No Edema
Skin: No Rash
Neuro: Nonfocal/grossly intact
Laboratory Results
-
06/10/25 09:00
06/10/25 09:00
Laboratory Results
Total Bilirubin 1.4 mg/dl (0.2-1.3) H 06/10/25 09:00
AST 93 U/L (17-59) H 06/10/25 09:00
ALT 154 U/L (0-50) H 06/10/25 09:00
Alkaline Phosphatase 125 U/L (38-126) 06/10/25 09:00
Data Reviewed
-
Diagnostic Radiology: Report Reviewed by me
CT Scan: Report Reviewed by me
Medical Tests (Nuc Med, Echo, EKG etc): Report Reviewed by me
Lab Data: Labs Reviewed by me
Impression/Plan
-
Vital Signs
Temp Pulse Resp BP Pulse Ox
102.1 F H 114 20 118/78 93
06/10/25 12:15 06/10/25 12:15 06/10/25 12:15 06/10/25 11:00 06/10/25 12:15
Abnormal Lab Results
06/10/25
09:00
RBC 4.50 L
Hgb 12.5 L
Hct 35.3 L
MCV 78.4 L
Immature Gran % 0.6 H
Lymphocytes % 18.0 L
Chloride 94 L
Carbon Dioxide 32 H
Glucose 337 H
Calcium 8.1 L
Total Bilirubin 1.4 H
AST 93 H
ALT 154 H
Creatine Kinase 640 H
Total Protein 8.5 H
Albumin 5.1 H
Relevant Data
Random Cortisol 1.2 low
NEG Covid
NEG Flu A & B
EKG:
NORMAL SINUS RHYTHM
SEPTAL INFARCT , AGE UNDETERMINED
ABNORMAL ECG
NO PREVIOUS ECGS AVAILABLE
CXR: No acute cardiopulmonary process.
CT Head W/o Iv Contrast: No acute intracranial abnormality noted
Last hospitalist admission:DATE OF ADMISSION: 12/06/2022 - DATE OF DISCHARGE: 12/08/2022
PRIMARY DIAGNOSES:
1. Febrile illness with hypotension.
2. Hypotension requiring vasopressor support briefly.
3. Bilateral subtle reticular nodular markings in the mid and lower zones suspicious for aspiration pneumonitis.
4. Transient abnormal liver function test elevation, suspected hemodynamic/hypotension related.
SECONDARY DIAGNOSES:
1. Adrenal insufficiency on steroids.
2. Hypothyroidism.
3. Hyperlipidemia.
4. Diabetes mellitus.
ASSESSMENT & PLAN
Pending Rx reconciliation
Syncope suspect vasovagal associated with relative adrenal insufficiency in setting of URI with acute febrile illness
Dehydration
NEG CXR, NEG Covid, NEG Flu A & B
Underlying adrenal insufficiency on chr steroids
- IV NS @ 100cc/H
- cont stress dose IV Hydrocortisone 100mg q8 h for next 24 -48hrs and wean down as tolerated
- check UA to complete w/u
- f/u BCx
- Trend BP and HR
- Fall precaution
Fall complicated with mild Rhabdo
- NEG HCT for acute patho
- trend CPK with IVF
Abnormal LFTs-transient elevation.
- Suspect probably hemodynamics/hypotension
- No history of liver disease.
- repeat CMP
Hypothyroidism
- on BLOCK CUTTER Synthroid
Hyperlipidemia
- on BLOCK CUTTER home treatments.
Diabetes mellitus
- c/w BLOCK CUTTER metformin
- add ISS moderate while on stress dose steroids
DVT Px: LMWH
Full code
IP TLM
[2025-06-10 16:43] LABS: Glucose - Point of Care 523 mg/dl (70-99)
[2025-06-10 17:17] LABS: Glucose - Point of Care > 600 mg/dl (70-99)
[2025-06-10] MEDS: LOVENOX 40 MG SC (18:12)
[2025-06-10 18:18] LABS: Glucose 508 mg/dl (70-99)
[2025-06-10 18:20] LABS: Urine Character Clear (Clear)
[2025-06-10 18:27] LABS: Urine White Cell 0-2 /HPF (0-5)
--- NOTE | 2025-06-10 18:30 | PTCARENOTE ---
Pt's accucheck 523 at 1639, rechecked accucheck to double check, resulted out of range high at 1715. Ordered stat venous glucose at that time. Venous glucose result [address] Nolasco aware of result and order obtained for 12 units of
Novolog x 1. Will recheck blood sugar in 2 hours per protocol, updated clinic coordinator RN of need to recheck in 2 hours.
[2025-06-10] MEDS: NOVOLOG FLEXPEN 12 UNITS SC (18:41)
[2025-06-10] MEDS: NOVOLOG FLEXPEN-MODERATE RESISTANCE SC (18:42)
[2025-06-10 21:03] LABS: Glucose - Point of Care 464 mg/dl (70-99)
[2025-06-10 21:03] LABS: Glucose - Point of Care 481 mg/dl (70-99)
[2025-06-10 22:12] LABS: Glucose 432 mg/dl (70-99)
[2025-06-10] MEDS: NOVOLOG FLEXPEN 10 UNITS SC (23:04)
[2025-06-11] VITALS (7 sets, daily range): BP systolic 108–142; BP diastolic 72–98; PULSE 77–85; BMI 28.8
[2025-06-11 01:18] LABS: Glucose - Point of Care 309 mg/dl (70-99)
[2025-06-11] MEDS: NSS 1000 IV (02:10)
[2025-06-11 07:51] LABS: Glucose - Point of Care 244 mg/dl (70-99)
--- NOTE | 2025-06-11 07:54 | W.PN.HOSP.TC ---
Today's Communication/Plan
-
Since blood pressures have been stable, started tapering hydrocortisone, decreased from 100 mg IV every 8 hours to 50 mg every 8 hours IV.
Consulted neurology, given history of brain tumor as an infant/child.
To workup elevated LFTs and fever, ordered right upper quadrant ultrasound and hepatitis viral panel.
Assessment / Plan
Assessment / Plan
Impression:
Mr. Víctor Knutson is a 40-year-old male with a PMH notable for adrenal sufficiency on chronic steroids, panhypopituitarism, diabetes, and hypothyroidism secondary to thyroid resection for thyroid cancer, who presents to with unwitnessed syncope and
lethargy afterwards. He had a nose bleed 1 day before. He endorses feeling congested and thinks he caught the cold from his . He had a fever in the ED.
Infectious workup thus far has been negative. Pending blood cultures, right upper quadrant ultrasound, and viral hepatitis panel. Tapering hydrocortisone. Pending urology consult; patient had a brain tumor as an infant/child.
Random Cortisol 1.2 low
EKG:
NORMAL SINUS RHYTHM
SEPTAL INFARCT , AGE UNDETERMINED
ABNORMAL ECG
NO PREVIOUS ECGS AVAILABLE
CXR: No acute cardiopulmonary process.
CT Head W/o Iv Contrast: No acute intracranial abnormality noted
Last hospitalist admission:DATE OF ADMISSION: 12/06/2022 - DATE OF DISCHARGE: 12/08/2022
PRIMARY DIAGNOSES:
1. Febrile illness with hypotension.
2. Hypotension requiring vasopressor support briefly.
3. Bilateral subtle reticular nodular markings in the mid and lower zones suspicious for aspiration pneumonitis.
4. Transient abnormal liver function test elevation, suspected hemodynamic/hypotension related.
SECONDARY DIAGNOSES:
1. Adrenal insufficiency on steroids.
2. Hypothyroidism.
3. Hyperlipidemia.
4. Diabetes mellitus.
Plan:
#Syncope suspect vasovagal associated with relative adrenal insufficiency in setting of URI with acute febrile illness
#Fever
Dehydration
NEG CXR, NEG Covid, NEG Flu A & B, NEG UA (positive for RBCs, occult blood, glucose, albumin)
Underlying adrenal insufficiency on chr steroids
- IV NS @ 100cc/H
Received 4 doses of stress-dose IV Hydrocortisone 100mg q8h
�Tapering hydrocortisone: 50 mg Q8H 06/11/25�
- f/u BCx
- Trend BP and HR
- Fall precaution
Neuro consulted: PMHx brain tumor as /child
#Abnormal LFTs-transient elevation.
Suspect probably hemodynamics/hypotension
No history of liver disease.
- Trend LFTs: AST and ALT increased
� Right upper quadrant ultrasound pending
� Hepatitis viral panel pending
#Diabetes mellitus
- c/w BUFFET SERVER metformin
- add ISS moderate while on stress dose steroids
#Fall complicated with mild Rhabdo
- NEG head CT for acute patho
- trend CPK with IVF
#Hypothyroidism
- on BUFFET SERVER Synthroid
#Hyperlipidemia
- on BUFFET SERVER fenofibrate
Diet: Diabetic 1800 calories, cholesterol owering, Low sodium 2gm
DVT Px: LMWH
Full code
IP TLM
Anticipated Discharge: 24 - 48 hours
Subjective/Interval History
-
Date of Service: June 11, 2025
No acute events overnight. Patient denied feeling lightheaded, chest pain, shortness of breath, palpitations, vision changes, numbness, tingling, pain.
Objective Data
-
Labs:
Laboratory Results
06/10/25 06/11/25
21:45 06:28
Sodium Pending
Potassium Pending
Chloride Pending
Carbon Dioxide Pending
BUN Pending
Creatinine Pending
Glucose 432 H Pending
Calcium Pending
Total Bilirubin Pending
AST Pending
ALT Pending
Alkaline Phosphatase Pending
Vital Signs:
Vital Signs
Temp Pulse Resp BP Pulse Ox
98.6 F 76 20 120/86 94
06/11/25 03:51 06/11/25 03:51 06/11/25 03:51 06/11/25 03:51 06/11/25 03:51
I&O
06/10/25 06/11/25 06/12/25
06:59 06:59 06:59
Intake Total 640 / 640
Output Total 1725 / 1725
Balance -1085 / -1085
Review of Systems
-
History Source: Patient
Constitutional: Reports No Symptoms
EENT: Reports No Symptoms Reported
Respiratory: Reports No Symptoms
Cardiac: Reports No Symptoms
Abdomen/GI: Reports No Symptoms
Musculoskeletal: Reports No Symptoms
Skin: Reports No Symptoms
Neuro: Reports No Symptoms
Physical Exam
-
General: Well Developed, Well Nourished, No Apparent Distress and Comfortable
HEENT: Normocephalic, Atraumatic, Moist Mucous Membranes, PERRLA, Nose Appears Normal, Ears Appear Normal, Hearing Impaired (Wears hearing aid) and Other (Neely facies (cheek fullness), bitemporal wasting)
Respiratory: Clear to Auscultation
Cardiac: Regular Rhythm and S1/S2
GI: Soft, Nontender, Nondistended, Normal Bowel Sounds and Flat
Musculoskeletal: No Clubbing, No Cyanosis and No Edema
Skin: Warm and Dry
Neuro: Awake, Alert, Oriented and Nonfocal/Grossly Intact
Psych: Calm
Data Reviewed
-
Total Time Spent with Patient (in minutes): 25
Diagnostic Radiology: Report Reviewed by me
CT Scan: Report Reviewed by me
Labs: Labs Reviewed by me
[2025-06-11 08:09] LABS: ALT (SGPT) 204 U/L (0-50); AST (SGOT) 123 U/L (17-59); Albumin 4.8 g/dl (3.5-5.0); Alkaline Phosphatase 110 U/L (38-126); Blood Urea Nitrogen 20 mg/dl (9-20); Calcium 7.8 mg/dl (8.4-10.2); Carbon Dioxide 26 mmol/L (22-30); Chloride 98 mmol/L (98-107); Estimated Creatinine Clearance > 125 ml/min; Glucose 260 mg/dl (70-99); Potassium 4.0 mmol/L (3.5-5.1); Sodium 135 mmol/L (135-145); Total Protein 8.0 g/dl (6.3-8.2); eGFR > 60.00
[2025-06-11 08:17] LABS: Glycohemoglobin (HgbA1c) 11.6 % (4.0-5.6)
[2025-06-11] MEDS: NOVOLOG FLEXPEN-MODERATE RESISTANCE 3 UNITS SC (08:46)
[2025-06-11] MEDS: GLUCOPHAGE 1000 MG PO (08:47)
[2025-06-11] MEDS: SOLU-CORTEF 100 MG IV (08:48)
[2025-06-11] MEDS: SYNTHROID 137 MCG PO (08:48)
[2025-06-11] MEDS: ZYLOPRIM 100 MG PO (08:48)
--- NOTE | 2025-06-11 08:51 | W.PN.UPDATE ---
Update Note
Progress Note Update
Seen and examined the patient independently. Agree with plan formulated by resident except for changes in my documentation.
40-year-old with syncope. Patient has been congested with URI symptoms and cough for the past couple of days. He also had some nosebleed around 5 AM which lasted for 2 minutes. When he went back to sleep later in the morning he came downstairs
and was fine. Then he went upstairs to get laundry and then she heard a thud. She went upstairs and he seemed to be passed out on the bathroom floor. She had to shake him for 20 to 30 seconds before he woke up he was confused and disoriented for
a few minutes. By the time EMS came he was oriented and back to baseline
CT of the head-no acute intracranial abnormality
Chest x-ray-no acute changes
EKG-sinus rhythm. Septal infarct age undetermined
Patient feels well and wants to go home
On examination microcephaly
cardiovascular system S1-S2 appreciated
Chest clear to auscultation
abdomen soft and nontender
# Syncope
Post syncopal confusion
Neurology evaluation requested
Echo-routine
Check orthostatic vital signs
# Fever--check blood cultures
Possible viral. Hold off on antibiotics until source is identified as clinically stable.
Ultrasound of the abdomen given elevated LFTs
# Recent URI symptoms
# Adrenal insufficiency-on hydrocortisone 10 mg daily, testosterone replacement
Wean off stress dose steroids
Hydrocortisone 10 mg twice daily which is patient's outpatient dose
# Diabetes-hemoglobin A1c 11.6
HbA1c indicates poor control
May need to start insulin
Continue metformin, Accu-Cheks and sliding scale coverage
# Mildly elevated CPK level-follow
# Hyperlipidemia-continue Vascepa and fenofibrate
# History of gout-continue allopurinol
# Vitamin D deficiency-replace
# History of thyroidectomy-continue levothyroxine 137 mcg daily
# History of medulloblastoma with radiation at age 1
# DVT prophylaxis-Lovenox
# Full code
Discussed with nursing
Discussed with patient's from patient's phone
Part of this note was created using voice recognition system. Occasional wrong word or��sound alike� substitutions may have inadvertently occurred due to the inherent limitations of voice recognition software. If noted kindly bring it to my
attention for correction.
[2025-06-11] MEDS: NOVOLOG FLEXPEN 5 UNITS SC ×3 (09:29→17:17)
[2025-06-11 11:48] LABS: Vitamin D, 25-OH*** 17.7 ng/mL (30-80)
[2025-06-11 11:50] LABS: Glucose - Point of Care 361 mg/dl (70-99)
[2025-06-11] MEDS: NOVOLOG FLEXPEN-MODERATE RESISTANCE 9 UNITS SC (13:06)
[2025-06-11] MEDS: NSS IV (14:18)
[2025-06-11 16:20] LABS: Hepatitis B Surface Antigen Negative (Negative)
--- NOTE | 2025-06-11 16:46 | CON.NEURO ---
Neuro Assessment/Plan
Assessment
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 Therefore I recommended starting Keppra, but they are not interested which is reasonable since all of his sz were provoked in the setting of
acute/febrile illness which certainly lowers the seizure threshold.
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
check EEG which may be done as an outpatient
discussed with patient and all questions answered
Consultation
Order
Date of Consultation: 06/11/25
Requesting Provider: Jaci
Reason for Consult: Syncope
Subjective/Objective
Subjective Data
Date of Service: June 11, 2025
40-year-old with syncope. Patient has been congested with URI symptoms and cough for the past couple of days. He also had some nosebleed around 5 AM which lasted for 2 minutes. When he went back to sleep later in the morning he came downstairs
and was fine. Then he went upstairs to get laundry and then she heard a thud. She went upstairs and he seemed to be passed out on the bathroom floor. She had to shake him for 20 to 30 seconds before he woke up he was confused and disoriented for
a few minutes. By the time EMS came he was oriented and back to baseline
has had previous similar events, all in the setting of acute illness.
h/o meduloblastoma resected at age 1, panhypopituitarism with adrenal insuffiency on chronic steroids, diabetes, and hypothyroidism secondary to thyroid resection for thyroid cancer.
Objective Data
Vital Signs
Temp Pulse Resp BP Pulse Ox
36.9 C 86 18 133/90 100
06/11/25 15:55 06/11/25 15:55 06/11/25 15:55 06/11/25 15:55 06/11/25 15:55
Lab Results
06/10/25 09:00
06/11/25 06:28
Sodium 135 mmol/L (135-145) 06/11/25 06:28
Potassium 4.0 mmol/L (3.5-5.1) 06/11/25 06:28
BUN 20 mg/dl (9-20) 06/11/25 06:28
Glucose 260 mg/dl (70-99) H 06/11/25 06:28
Calcium 7.8 mg/dl (8.4-10.2) L 06/11/25 06:28
Patient Allergies
No Known Allergies Allergy (Verified 09/01/24 07:20)
Physical Exam
-
AAOx3, speech clear, language intact
VFF, EOMI, face symmetric
full strength b/l UE/LE,
Medications
-
Active Medications
Generic Name Dose Route Start Last Admin
Trade Name Freq PRN Reason Stop Dose Admin
Acetaminophen 650 mg 06/10/25 14:41
Acetaminophen 325 Mg Tablet PO 07/08/25 14:40
Q4HPRN PRN
mild pain/ELI/temp> 100.4F
Allopurinol 100 mg 06/11/25 08:00 06/11/25 08:48
Allopurinol 100 Mg Tablet PO 07/09/25 07:59 100 mg
DAILY RADHA Administration
Bisacodyl 10 mg 06/10/25 14:41
Bisacodyl 10 Mg Rectal Suppository RECTAL 07/08/25 14:40
[id number] PRN
constipation
Cholecalciferol 50 mcg 06/12/25 08:00
Cholecalciferol (Vitamin D3) 50 Mcg Tablet (2,000 Units) PO 07/10/25 07:59
DAILY RADHA
Dextrose 12.5 grams 06/10/25 14:41
Dextrose 50% (0.5 Grams/Ml) 50 Ml Syringe IV 07/08/25 14:40
[id number] PRN
hypoglycemia
Protocol
Enoxaparin Sodium 40 mg 06/10/25 18:00 06/10/25 18:12
Enoxaparin Sodium 40 Mg/0.4 Ml Syringe SC 07/08/25 17:59 40 mg
QPM RADHA Administration
Glucagon 1 mg 06/10/25 14:41
Glucagon 1 Mg Vial IM 07/08/25 14:40
PRN PRN
hypoglycemia
Protocol
Hydrocortisone 10 mg 06/12/25 08:00
Hydrocortisone 10 Mg Tablet PO 07/10/25 07:59
DAILY RADHA
Hydrocortisone 10 mg 06/12/25 15:00
Hydrocortisone 10 Mg Tablet PO 07/10/25 14:59
DAILY@1500 RADHA
Insulin Aspart 0 units 06/10/25 16:30 06/11/25 13:06
Insulin Aspart Moderate Resistance 300 Units/3 Ml Pen.Injctr SC 07/08/25 16:29 9 units
AC RADHA Administration
Protocol
Insulin Aspart 5 units 06/11/25 11:30 06/11/25 13:06
Insulin Aspart (Novolog) 100 Units/Ml 3 Ml Flexpen SC 07/09/25 11:29 5 units
AC RADHA Administration
Levothyroxine Sodium 137 mcg 06/11/25 08:00 06/11/25 08:48
Levothyroxine 137 Mcg Tablet PO 07/09/25 07:59 137 mcg
DAILY RADHA Administration
Metformin HCl 1,000 mg 06/11/25 08:00 06/11/25 08:47
Metformin 1000 Mg Regular Release Tablet PO 07/09/25 07:59 1,000 mg
DAILY RADHA Administration
Non-Formulary Medication 2 grams 06/10/25 20:00
Icosapent Ethyl [Vascepa] PO 07/08/25 19:59
BID RADHA
Non-Formulary Medication 1 patch 06/10/25 18:00
Testosterone [Androderm] TRANSDERM 07/08/25 17:59
QPM RADHA
Ondansetron HCl 4 mg 06/10/25 14:41
Ondansetron 4 Mg/2 Ml Vial IV 07/08/25 14:40
Q6HPRN PRN
nausea and vomiting
Polyethylene Glycol 17 grams 06/10/25 14:41
Polyethylene Glycol Powder 17 Grams Packet PO 07/08/25 14:40
DAILYPRN PRN
constipation
Senna/Docusate Sodium 1 tablet 06/10/25 14:41
Docusate W/Senna (Delia-Colace) Tablet PO 07/08/25 14:40
BIDPRN PRN
constipation
Sodium Chloride 0 flush 06/10/25 23:00
Sodium Chloride 0.9% (Flush) Syringe IV 07/08/25 22:59
PER PROTOCOL RADHA
Home Medications
�Medication �Instructions �Recorded
allopurinol 100 mg tablet 100 mg PO DAILY Gout 12/06/22
fenofibrate 160 mg tablet 160 mg PO DAILY High cholesterol 12/06/22
hydrocortisone 10 mg tablet 10 mg PO DAILY Anti-inflammatory 12/06/22
icosapent ethyl 1 gram capsule 2 g PO BID High cholesterol 12/06/22
(Vascepa)
levothyroxine 137 mcg tablet 137 mcg PO DAILY Thyroid 12/06/22
metformin 1,000 mg tablet 1,000 mg PO DAILY Diabetes 12/06/22
testosterone 20 mg topical HS Hormonal Agent 06/10/25
[2025-06-11 16:56] LABS: Glucose - Point of Care 328 mg/dl (70-99)
[2025-06-11] MEDS: DRISDOL (VITAMIN D2) 50000 UNITS PO (17:15)
[2025-06-11] MEDS: FLUSH (NSS) 2 FLUSH IV (17:16)
[2025-06-11] MEDS: SOLU-CORTEF 50 MG IV (17:16)
[2025-06-11] MEDS: NOVOLOG FLEXPEN-MODERATE RESISTANCE 7 UNITS SC (17:18)
[2025-06-11] MEDS: LOVENOX 40 MG SC (17:20)
[2025-06-11 17:26] LABS: Hepatitis A Antibody, Total Negative (Negative); Hepatitis C Antibody Negative (Negative)
[2025-06-11 21:38] LABS: Glucose - Point of Care 236 mg/dl (70-99)
[2025-06-12 04:04] VITALS: BP 102/71
[2025-06-12 05:33] VITALS: BMI 28.6
[2025-06-12 07:20] VITALS: BP 130/82
[2025-06-12 08:00] LABS: Glucose - Point of Care 190 mg/dl (70-99)
--- NOTE | 2025-06-12 08:07 | W.PN.HOSP.TC ---
Today's Communication/Plan
-
Diabetes mellitus: blood glucose 230-360 yesterday. Hba1c 11.6 06/11/25. since Hba1c > 9, started insulin Lantus 20 units AM and Novolog 5 units premeal. Consulted diabetes education nurse, which will likely occur tomorrow. Continuing home metformin
and moderate ISS while on stress-dose steroids.
Increased hydrocortisone to 20 mg PO in AM and 10 mg PO in PM.
Assessment / Plan
Assessment / Plan
Impression:
Mr. 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
and hypothyroidism secondary to thyroid resection for thyroid cancer, who presents to with [id number] followed by lethargy afterwards. He had a nose bleed 1 day before. He endorses feeling congested and thinks he caught the cold from
his . He had a fever in the ED. He endorses he has had 1 similar episode in 2022, associate with acute/febrile illnesses.
Infectious workup thus far has been negative. Pending blood cultures, right upper quadrant ultrasound, and viral hepatitis panel. Tapering hydrocortisone. Pending urology consult; patient had a brain tumor as an infant/child.
Random Cortisol 1.2 low
Upper abdominal ultrasound: Hepatomegaly and echogenicity in the liver, compatible with underlying hepatocellular disease, which most commonly relates to fatty filtration of the liver
Last hospitalist admission:DATE OF ADMISSION: 12/06/2022 - DATE OF DISCHARGE: 12/08/2022
PRIMARY DIAGNOSES:
1. Febrile illness with hypotension.
2. Hypotension requiring vasopressor support briefly.
3. Bilateral subtle reticular nodular markings in the mid and lower zones suspicious for aspiration pneumonitis.
4. Transient abnormal liver function test elevation, suspected hemodynamic/hypotension related.
SECONDARY DIAGNOSES:
1. Adrenal insufficiency on steroids.
2. Hypothyroidism.
3. Hyperlipidemia.
4. Diabetes mellitus.
Plan:
#Syncope suspect vasovagal associated with relative adrenal insufficiency in setting of URI with acute febrile illness
#Fever
Dehydration
NEG CXR, NEG Covid, NEG Flu A & B, NEG UA (positive for RBCs, occult blood, glucose, albumin)
Underlying adrenal insufficiency on chr steroids
- 1 L IV NS @ 100cc/H
Tapering stress dose hydrocortisone. Received 4 doses of stress-dose IV Hydrocortisone 100mg q8h. received 1 dose 50 mg Q8H 06/11/25.
- Increased hydrocortisone to 20 mg PO in AM and 10 mg PO in PM on 06/12/25
- f/u BCx
- Trend BP and HR
Neuro consulted: Outpatient EEG.
� Recommended Keppra, but patient declined due to his 2 seizures being associated with acute/febrile illness, which lowers the seizure has threshold
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
#Diabetes mellitus
Hba1c 11.6 06/11/25
- c/w MARKETING ADMIN metformin
- add ISS moderate while on stress dose steroids
- add insulin Lantus 20 units AM and Novolog 5 units premeal. Started 06/12/25
- diabetes education consult
#Abnormal LFTs-transient elevation.
Suspect probably hemodynamics/hypotension
Upper abdominal ultrasound: Hepatomegaly and echogenicity in the liver, compatible with underlying hepatocellular disease, which most commonly relates to fatty filtration of the liver
- Trend LFTs: AST and ALT overall decreased
� Hepatitis viral panel: Negative for HIV, HCV. Hepatitis B surface antibody indeterminate. Hepatitis B core IgM antibody negative hepatitis B core total antibody pending
#Fall complicated with mild Rhabdo
Stress dose or chronic hydrocortisone may also be contributing to elevated CPK
NEG head CT for acute patho
- trend CPK: 642, 542, 547
#Hypothyroidism
- on MARKETING ADMIN Synthroid
#Hyperlipidemia
- on MARKETING ADMIN fenofibrate
Diet: Diabetic 1800 calories, cholesterol lowering, Low sodium 2gm
DVT Px: LMWH
Full code
IP TLM
Anticipated Discharge: 24 - 48 hours
Subjective/Interval History
-
Date of Service: June 12, 2025
Objective Data
-
Labs:
Laboratory Results
06/12/25 06/12/25
07:39 07:40
WBC Pending
Hgb Pending
Hct Pending
Plt Count Pending
Sodium Pending
Potassium Pending
Chloride Pending
Carbon Dioxide Pending
BUN Pending
Creatinine Pending
Glucose Pending
Calcium Pending
Total Bilirubin Pending
AST Pending
ALT Pending
Alkaline Phosphatase Pending
Vital Signs:
Vital Signs
Temp Pulse Resp BP Pulse Ox
98.1 F 75 16 102/71 100
06/12/25 04:04 06/12/25 04:04 06/12/25 04:04 06/12/25 04:04 06/12/25 04:04
I&O
06/11/25 06/12/25 06/13/25
06:59 06:59 06:59
Intake Total 1840 / 1840 1920 / 1920
Output Total 1725 / 1725 1550 / 1550
Balance 115 / 115 370 / 370
[2025-06-12] MEDS: CORTEF 10 MG PO ×2 (08:34→15:05)
[2025-06-12] MEDS: SYNTHROID 137 MCG PO (08:34)
[2025-06-12] MEDS: ZYLOPRIM 100 MG PO (08:34)
[2025-06-12] MEDS: VITAMIN D3 (cholecalciferol) 50 MCG PO (08:34)
[2025-06-12] MEDS: NOVOLOG FLEXPEN-MODERATE RESISTANCE 1 UNITS SC (08:34)
[2025-06-12] MEDS: GLUCOPHAGE 1000 MG PO (08:34)
[2025-06-12] MEDS: NOVOLOG FLEXPEN 5 UNITS SC ×3 (08:35→17:42)
[2025-06-12] MEDS: FLUSH (NSS) 1 FLUSH IV (08:36)
[2025-06-12 08:39] LABS: ALT (SGPT) 146 U/L (0-50); AST (SGOT) 60 U/L (17-59); Albumin 4.7 g/dl (3.5-5.0); Alkaline Phosphatase 99 U/L (38-126); Blood Urea Nitrogen 21 mg/dl (9-20); Calcium 8.1 mg/dl (8.4-10.2); Carbon Dioxide 31 mmol/L (22-30); Chloride 96 mmol/L (98-107); Estimated Creatinine Clearance > 125 ml/min; Glucose 204 mg/dl (70-99); Potassium 3.4 mmol/L (3.5-5.1); Sodium 136 mmol/L (135-145); Total Protein 7.8 g/dl (6.3-8.2); eGFR > 60.00
--- NOTE | 2025-06-12 10:53 | W.DCSUMMARY ---
Discharge Summary
Discharge Data
Date of Admission: 06/10/25
Date of Discharge: 06/13/25
-
Pending Results: Yes
Additional Pending Results:
Blood cultures final report (no growth in 48 hours)
Hospital Course
Primary:
Syncope
Adrenal insufficiency
Transaminitis
Mild rhabdomyolysis
Fever
Secondary:
Diabetes
Hypothyroidism
Hyperlipidemia
Mr. 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
and hypothyroidism secondary to thyroid resection for thyroid cancer, who presents to with sufv-cf-poqkrkrbiaaaf followed by lethargy afterwards. He had a nose bleed 1 day before. He endorses feeling congested and thinks he caught the cold from
his . He had a fever in the ED. He endorses he has had 1 similar episode in 2022, associate with acute/febrile illnesses.
Infectious workup thus far has been negative. Pending blood cultures, right upper quadrant ultrasound, and viral hepatitis panel. Tapering hydrocortisone. Pending urology consult; patient had a brain tumor as an infant/child.
Random Cortisol 1.2 low
Upper abdominal ultrasound: Hepatomegaly and echogenicity in the liver, compatible with underlying hepatocellular disease, which most commonly relates to fatty filtration of the liver
Last hospitalist admission:DATE OF ADMISSION: 12/06/2022 - DATE OF DISCHARGE: 12/08/2022
PRIMARY DIAGNOSES:
1. Febrile illness with hypotension.
2. Hypotension requiring vasopressor support briefly.
3. Bilateral subtle reticular nodular markings in the mid and lower zones suspicious for aspiration pneumonitis.
4. Transient abnormal liver function test elevation, suspected hemodynamic/hypotension related.
SECONDARY DIAGNOSES:
1. Adrenal insufficiency on steroids.
2. Hypothyroidism.
3. Hyperlipidemia.
4. Diabetes mellitus.
Plan:
#Syncope suspect vasovagal associated with relative adrenal insufficiency in setting of URI with acute febrile illness
#Fever
Dehydration
NEG CXR, NEG Covid, NEG Flu A & B, NEG UA (positive for RBCs, occult blood, glucose, albumin)
Underlying adrenal insufficiency on chr steroids
- 1 L IV NS @ 100cc/H
Tapering stress dose hydrocortisone. Received 4 doses of stress-dose IV Hydrocortisone 100mg q8h. received 1 dose 50 mg Q8H 06/11/25.
- Increased hydrocortisone to 20 mg PO in AM and 10 mg PO in PM on 06/12/25
- f/u BCx
- Trend BP and HR
Neuro consulted: Outpatient EEG.
� Recommended Keppra, but patient declined due to his 2 seizures being associated with acute/febrile illness, which lowers the seizure has threshold
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
#Diabetes mellitus
Hba1c 11.6 06/11/25
- c/w MATH TUTOR metformin
- add ISS low-resistance while on stress dose steroids
- add insulin Lantus 20 units AM and Novolog 8 units premeal
- diabetes education consult
#Abnormal LFTs-transient elevation.
Suspect probably hemodynamics/hypotension
Upper abdominal ultrasound: Hepatomegaly and echogenicity in the liver, compatible with underlying hepatocellular disease, which most commonly relates to fatty filtration of the liver
- Trend LFTs: AST and ALT overall decreased
� Hepatitis viral panel: Negative for HIV, HCV. Hepatitis B surface antibody indeterminate. Hepatitis B core IgM antibody negative hepatitis B core total antibody pending
#Fall complicated with mild Rhabdo
Stress dose or chronic hydrocortisone may also be contributing to elevated CPK
NEG head CT for acute patho
- trend CPK: 642, 542, 547
#Hypothyroidism
- on MATH TUTOR Synthroid
#Hyperlipidemia
- on MATH TUTOR fenofibrate
Diet: Diabetic 1800 calories, cholesterol lowering, Low sodium 2gm
DVT Px: LMWH
Full code
IP TLM
Discharge Plan
-
Patient Disposition: Home (Routine Discharge)
Discharge Diagnosis/Procedures: Primary:
Syncope
Adrenal insufficiency
Transaminitis
Mild rhabdomyolysis
Fever
Secondary:
Diabetes
Hypothyroidism
Hyperlipidemia
Diet: Diabetic, Carb Controlled
Activity: No restrictions
Driving Restrictions: As prior to admission
Referrals:
Umair Mejia MD [Non-Admitting Privileges, Family Practice] - in one week
So Burns MD [Non-Admitting Privileges, Internal Medicine] - in one week
Referral Note: a1c 11, started insulin.
adrenal insufficiency, hypothyroidism
Additional Discharge Medication Instructions: Please follow up with factory superintendent Dr. Ceron for diabetes, adrenal insufficiency, and hypothyroidism.
Please follow-up with PCP for diabetes management.
Prescriptions:
New
hydrocortisone 5 mg tablet
5 mg PO QPM Qty: 30 0RF
Continued
levothyroxine 137 mcg Tablet
137 mcg PO DAILY
allopurinol 100 mg Tablet
100 mg PO DAILY
metformin 1,000 mg Tablet
1,000 mg PO DAILY
hydrocortisone 10 mg Tablet
10 mg PO DAILY
fenofibrate 160 mg Tablet
160 mg PO DAILY
icosapent ethyl [Vascepa] 1 gram Capsule
2 g PO BID
testosterone gel
20 mg topical HS
Discharge Date and Time
Print Language: PASHTO
[2025-06-12 11:10] VITALS: BP 110/72
[2025-06-12 11:54] LABS: Hematocrit 32.4 % (39.0-52.0); Hemoglobin 11.5 g/dL (13.0-18.0); Mean Corp Hgb Conc. 35.5 g/dL (33.0-37.0); Mean Corpuscular Volume 79.4 fL (80.0-94.0); Nucleated Red Blood Cells % 0 % (-); Platelet Count 210 10^3/uL (130-400); Red Cell Dist. Width 13.6 % (11.5-14.5)
[2025-06-12 11:54] LABS: Glucose - Point of Care 259 mg/dl (70-99)
--- NOTE | 2025-06-12 11:59 | W.PN.UPDATE ---
Update Note
Progress Note Update
I saw and evaluated the patient. I reviewed the resident�s note and agree with findings and plan as documented in the resident�s note.
No new complaints.
Gen: NAD, AAOx3.
Eyes: EOMI, PERRLA, no scleral icterus.
Neck: supple.
CV: RRR, +S1/S2, no m/r/g.
Resp: CTAB, no rales, wheezes, or rhonchi.
Abd: +BS, soft, NT, ND
Skin: No rashes.
Neuro: CN 2-12 intact, non-focal.
Psych: Normal mood and affect.
CT brain: No acute intracranial abnormality noted.
Abd U/S: Hepatomegaly and echogenicity in the liver, compatible with underlying hepatocellular disease, which most commonly relates to fatty infiltration of the liver.
CXR: No acute cardiopulmonary process.
Provoked seizure:
-Neurology saw in consult
-Patient does not want to start on AEDs as well as seizures are provoked due to febrile illness
-As per neuro EEG can be outpatient
Fever/febrile illness:
-COVID/flu NEG
-fever on admission, now resolved
-BCxs NGTD
-CXR NAD
-Improving, no further workup needed at this time
-Elevated LFTs could be related to viral illness in the setting of fatty liver
DM2:
-a1c 11.6%
-start Lantus 20U and premeal Novolog 5U
Adrenal insufficiency, chronic:
-change hydrocortisone to 20 mg in the morning and 10 mg in the evening
Hypothyroidism:
-h/o thyroidectomy
-cont Levoxyl
Other problems:
HLD: cont Vascepa/fenofibrate
Gout: cont allopurinol
vitamin D deficiency
h/o medulloblastoma with radiation at age 1
FULL/Lovenox
Total time spent on today's encounter was 50 minutes which included time spent in counseling the patient/family regarding diagnosis and treatment plan as listed above, goals of care, and symptom management. Case was discussed with nursing staff,
specialists, and care coordinators/case management. All labs and imaging personally reviewed by me. Remainder the time spent in detailed review of previous records, lab data, imaging, and other medical provider documentation.
[2025-06-12] MEDS: NOVOLOG FLEXPEN-MODERATE RESISTANCE 5 UNITS SC (12:57)
--- NOTE | 2025-06-12 15:00 | PTCARENOTE ---
Discussed with Dr. Daley if she wanted to replete pt's potassium, 3.4 this morning with labs. Dr. Daley indicated no repletion at this point, repeat labs in am.
[2025-06-12 15:05] VITALS: BP 122/81
[2025-06-12 16:06] LABS: Glucose - Point of Care 209 mg/dl (70-99)
--- NOTE | 2025-06-12 16:18 | CM ---
Met with patient to obtain information for assessment. Patient stated that he lives with his spouse and children in a two story home with one step to enter. He is independent with all ADLs, personal care, dressing and bathing. 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 He drives and can get to appointments and does all of his own shopping. He has no DME. Never been to a SNF or had VN.
Plan: Case management will continue to follow and assist with discharge planning. Home when stable.
[2025-06-12] MEDS: NOVOLOG FLEXPEN-MODERATE RESISTANCE 3 UNITS SC (17:41)
[2025-06-12] MEDS: LOVENOX 40 MG SC (17:42)
--- NOTE | 2025-06-12 18:26 | PTCARENOTE ---
Provided pt with assigned insulin administration videos, verbal education, and demonstration of how to self administer insulin this evening. Pt able to properly demonstrate how to prep insulin pen and self administer with guidance from RN. Discussed
proper disposal of sharps after done administering.
[2025-06-12 21:34] LABS: Glucose - Point of Care 169 mg/dl (70-99)
[2025-06-12 23:00] VITALS: BP 131/80
[2025-06-13 06:00] VITALS: BMI 28.2
[2025-06-13 07:00] VITALS: BP 103/63
[2025-06-13 07:11] LABS: Glucose - Point of Care 243 mg/dl (70-99)
[2025-06-13 08:09] LABS: Hematocrit 32.7 % (39.0-52.0); Hemoglobin 11.4 g/dL (13.0-18.0); Mean Corp Hgb Conc. 34.9 g/dL (33.0-37.0); Mean Corpuscular Volume 79.4 fL (80.0-94.0); Nucleated Red Blood Cells % 0.2 % (-); Platelet Count 212 10^3/uL (130-400); Red Cell Dist. Width 13.7 % (11.5-14.5)
--- NOTE | 2025-06-13 08:20 | CARDSERVLU ---
Echocardiogram with [facility] completed after protocol screening completed. Allergies verified.
Patent IV site: __20P RAC___
IV site flushed with 0.9% NaCl pre and post administration.
Diluted bolus method utilized to enhance visualization of ventricular ayala.
Total volume given: __5.5__ mL
Patient tolerated all procedures well without complications.
--- NOTE | 2025-06-13 08:27 | PN.DE.MGMTRT ---
Insulin Management
- -
06/13/2025 Diabetes Management Consult
Patient admitted 06/10 after passing out at home, possible seizure. 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 Prior to admission was taking 1000 mg metformin
BID. A1C on admission 11.6%, cr .8, eGFR > 60.
Patient is awake alert and oriented able to discuss diabetes care. States he HAD diabetes 4 years ago, then took metformin, and did not test his blood sugar. He needs a new meter.
Patient received AC novolog 5 units AC. Lantus has been started, lantus 20 units in AM. Glucose range 169 to 259. Will increase AC novolog to 8 units with low corrective insulin.
Patient is receptive to dietitian consult and adaptive physical educator for new meter, will order both.
Discussed with nurse.
Will follow.
Diabetes History
- -
Type of Diabetes: 2 requiring insulin
Pre-Admission Diabetes Regimen
06/12/25
07:40
Creatinine 0.8
Lab Results
Hemoglobin A1c 11.6 % (4.0-5.6) H 06/11/25 06:28
Insulin Pump Settings
IP Diabetes Regimen
06/12/25 06/12/25 06/12/25
07:40 11:53 16:04
Glucose 204 H
POC Glucose 259 H 209 H
06/12/25 06/13/25
21:33 07:09
Glucose
POC Glucose 169 H 243 H
Meal type: Dinner
Meal type: Breakfast
Amount consumed: 100%
Amount consumed: 100%
Patient Education
[2025-06-13 08:44] LABS: ALT (SGPT) 116 U/L (0-50); AST (SGOT) 66 U/L (17-59); Albumin 4.6 g/dl (3.5-5.0); Alkaline Phosphatase 102 U/L (38-126); Blood Urea Nitrogen 18 mg/dl (9-20); Calcium 8.0 mg/dl (8.4-10.2); Carbon Dioxide 29 mmol/L (22-30); Chloride 92 mmol/L (98-107); Estimated Creatinine Clearance 115 ml/min; Glucose 198 mg/dl (70-99); Potassium 3.2 mmol/L (3.5-5.1); Sodium 131 mmol/L (135-145); Total Protein 7.6 g/dl (6.3-8.2); eGFR > 60.00
--- NOTE | 2025-06-13 08:52 | W.PN.UPDATE ---
Addendum entered and electronically signed by Latrell Savage MD 06/13/25 16:13:
Viral sepsis POA
Original Note:
Update Note
Progress Note Update
I saw and evaluated the patient. I reviewed the resident�s note and agree with findings and plan as documented in the resident�s note.
No new complaints.
Gen: NAD, AAOx3.
Eyes: EOMI, PERRLA, no scleral icterus.
Neck: supple.
CV: remains RRR, +S1/S2, no m/r/g.
Resp: remains CTAB, no rales, wheezes, or rhonchi.
Abd: remains +BS, soft, NT, ND
Skin: No rashes.
Neuro: CN 2-12 intact, non-focal.
Psych: Normal mood and affect.
CT brain: No acute intracranial abnormality noted.
Abd U/S: Hepatomegaly and echogenicity in the liver, compatible with underlying hepatocellular disease, which most commonly relates to fatty infiltration of the liver.
CXR: No acute cardiopulmonary process.
Provoked seizure:
-Neurology saw in consult
-Patient does not want to start on AEDs as well as seizures are provoked due to febrile illness
-As per neuro EEG can be outpatient
Fever/febrile illness:
-COVID/flu NEG
-fever on admission, now resolved
-BCxs NGTD
-CXR NAD
-Improving, no further workup needed at this time
-Elevated LFTs could be related to viral illness in the setting of fatty liver
DM2:
-a1c 11.6%
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
-cont with Lantus 20U, premeal Novolog 8U on d/c
Adrenal insufficiency, chronic:
-cont hydrocortisone to 20 mg in the morning and 10 mg in the evening
Hypothyroidism:
-h/o thyroidectomy
-cont Levoxyl
Other problems:
HLD: cont Vascepa/fenofibrate
Gout: cont allopurinol
vitamin D deficiency
h/o medulloblastoma with radiation at age 1
FULL/Lovenox
Total time spent on d/c = 31 min. This included today's physical exam, progress note, review of laboratory and diagnostic data, preparation of discharge documents and prescriptions, and discussions about the pt's hospital course and discharge plan
with the patient and other medical practitioners involved in the patient's care.
[2025-06-13] MEDS: ZYLOPRIM 100 MG PO (09:39)
[2025-06-13] MEDS: HYDROCORTONE/CORTEF 20 MG PO (09:39)
[2025-06-13] MEDS: SYNTHROID 137 MCG PO (09:39)
[2025-06-13] MEDS: VITAMIN D3 (cholecalciferol) 50 MCG PO (09:39)
[2025-06-13 09:45] VITALS: BP 103/63; BP 73/51; BP 96/65; PULSE 101; PULSE 106
[2025-06-13] MEDS: LANTUS 0.2 UNITS SC (09:45)
[2025-06-13] MEDS: NOVOLOG FLEXPEN-MODERATE RESISTANCE 3 UNITS SC ×3 (09:45→17:45)
[2025-06-13] MEDS: NOVOLOG FLEXPEN 8 UNITS SC ×3 (09:47→17:45)
[2025-06-13] MEDS: GLUCOPHAGE 1000 MG PO (09:47)
[2025-06-13 09:50] LABS: Glucose - Point of Care 243 mg/dl (70-99)
[2025-06-13] MEDS: NOVOLOG FLEXPEN SC (10:11)
[2025-06-13] MEDS: KCL 40 MEQ PO ×2 (10:59→16:16)
[2025-06-13 11:00] VITALS: BP 128/70
[2025-06-13 11:31] LABS: Glucose - Point of Care 244 mg/dl (70-99)
[2025-06-13 11:33] LABS: Magnesium 1.4 mg/dl (1.6-2.3)
--- NOTE | 2025-06-13 12:05 | EEG.RPT ---
Electroencephalogram Report
Recording
Date of EE06/13/25
Type of EEG: Routine
Length of EEG recordin minutes
Done with Video Recording: Yes
Patient Status: Inpatient
Recording Conditions: Awake and Drowsy
Hyperventilation Performed: No
Photic Stimulation Performed: Yes
Report
LESS THAN 1 HOUR EEG INTERPRETATION:
Unremarkable EEG for age
CLINICAL CORRELATION:
A normal EEG does not rule out a diagnosis of epilepsy. If clinical suspicion for seizure persists, a prolonged recording may be warranted.
Clinical correlation is advised.
METHODS:
A 21 channel digitized electroencephalogram (EEG) was performed using the 10/20 international system of electrode placement and one-lead of ECG recorded. The [employer] quantitative EEG system was utilized.
ELECTROENCEPHALOGRAPHER IMPRESSION(S):
Quality of study
Good
Background
There was an unremarkable anterior-posterior voltage gradient of alpha frequency.
With eye opening the background activity changed to a low voltage mixture of frequencies.
There were no significant asymmetries of background activity noted.
Sleep
Drowsiness present
Hyperventilation
Caused symmetric slowing
Photic Stimulation
No activation
ECG
Normal sinus rhythm
--- NOTE | 2025-06-13 12:09 | PTCARENOTE ---
06/13/2025 DIABETES EDUCATION CONSULT
I met with patient to review diabetes management. He was prescibed insulin in the past, then just prescribed Metformin as he assumes it's due to improved A1c values. He does not know when his last HbA1c was completed or it's value prior to
inpatient stay. He does not check his glucose, I educated his HbA1c while inpatient is 11.6%.
I educated on physiology of T2D, organ damage, managing with medications, monitoring BG, nutrition, activity, sleep and managing stress. I reinforced signs of hyperglycemia, hypoglycemia and hypoglycemia protocol; BS parameters and recommended HbA1c
goals, glucometer and CGM instructions, glucose tracker, medic alert bracelet and outpatient DSME program. Written material provided.
I provided patient with a [employer] glucometer sample kit. Provided verbal instructions on proper blood sugar testing technique, and demonstration with patient�s participation. I educated and demonstrated on insulin injection technique,
timing, and storage. Discussed long and short acting insulin; onset/peak/duration, and encouraged her to administer his own injections with RN supervision while admitted. Discussed normal target glucose ranges and a monitoring schedule 15 minutes
before each meal when prescribed Novolog, before bed and preprandial AM.
Encouraged patient to follow up with his PCP for post d/c appointment and to monitor medication and blood glucose levels. He states he does see Dr. So Burns, Garber tie cutter and will contact her post disharge for follow up appointment.
Patient verbalized understanding.
[2025-06-13] MEDS: MAGNESIUM SULFATE 100 IV (12:11)
[2025-06-13 13:15] VITALS: BP 103/63; BP 73/51; BP 96/65; PULSE 101; PULSE 106
--- NOTE | 2025-06-13 14:48 | PN.CDI ---
CDI
- -
CDI:
Physician Documentation Request
Admit Date: 06/10/25 13:11
Dear Doctor Janette,
Please review the following and provide your response in the progress notes.
Clinical Indicators:
Pt admitted with Fever /Seizure/ Adrenal Insufficiency
Documented per ED, ' He does endorse feeling congested and having a gurgly cough for the last 2 days. His is recovering from a cold (DayQuil/NyQuil helped) and he thinks that he caught it this week...-Failed to improve on these and also had
a fever of 102F ...He was very weak and lethargic. He has been sick with mild URI symptoms over the past week....'
Progress note 06/12,' Syncope suspect vasovagal associated with relative adrenal insufficiency in setting of URI with acute febrile illness Fever Dehydration ...'
Progress note 06/13, ' Fever/febrile illness...'
On admission Tmax 102.1, HR 114, Respirations 29
Please clarify which of the following most accurately describes the status of the patient's infection:
Viral Sepsis-POA
- Systemic manifestations of infection, with 2 or more SIRS criteria which include:
- Fever >100.9 degrees F or hypothermia < 96.8 degrees F
- Leukocytosis - WBC > 12,000 or leukopenia - WBC < 4,000 or > 10% bands
- Tachycardia > 90 beats per minute
- Tachypnea - RR > 20 breaths per minute or PaCO2 , 32mmHg
Source: Merck Manual 2013
URI only , Without Systemic Illness
Other ( please specify)
Use of terms such as suspected, likely, concern for, or probable (associated with a specific diagnosis that is being evaluated, monitored, or treated as if it exists) are acceptable and can be coded in the inpatient setting, when documented at the
time of discharge.
Thank you,
Cydney Griffin RN
CDI Specialist
[place] [facility]
Please use your independent medical judgment in providing your response.
[2025-06-13 15:00] VITALS: BP 134/70
--- NOTE | 2025-06-13 15:01 | CM ---
Spoke with with patient he said at discharge his Rebekah will drive him home.
Offered VN he declined need at discharge
PLAN Home no needs .
[2025-06-13] MEDS: CORTEF 10 MG PO (15:11)
[2025-06-13 16:38] LABS: Glucose - Point of Care 211 mg/dl (70-99)
[2025-06-13] MEDS: LOVENOX 40 MG SC (17:44)
--- NOTE | 2025-06-14 10:03 | PTCARENOTE ---
06/13/25 Received patient this am AAOX3. VS 0700- 98.5,101,103/63,16. Ortho static VS- 0945-103/63,101 lying, 96/65 101 sitting, 73/51 106-standing. Dr. Savage and Dr. Neelima Daley made aware. 1100 B/P 128/70 HR-90. 1500-98.5,89,134/70 16. Ox
saturation range 93-95%on RA. K-3.[address] Savage [address] Daley made aware. Pt medicated with Potassium 40 meq PO at 11:00 and 16:15 as ordered. Magnesium was 1.4. pt received at Magnesium 4 gm rider as ordered. Pt off unit for echo today. Tolerated diet
well. OOB ambulating to bathroom with a steady gait. Offered no complaints. Made patient comfortable.
--- NOTE | 2025-06-14 10:28 | PTCARENOTE ---
06/13/25 17:[address] Daley for clarification on patient's discharge status. Order for discharge placed at 18:00. Pt AAOx3. Pt given discharge instructions. Pt verbalized good understanding of instructions. Pt discharged to home. Pt's picked
patient up.
== END 2025-06-13 19:15 | disposition home or self-care (01) | DRG 871 ==
LOC: 4 EAST ACU 13:11
PROVIDERS: ADMITTING PHYSICIAN Internal Medicine; ATTENDING PHYSICIAN Internal Medicine; CONSULT PHYSICIAN Psychiatry & Neurology Clinical Neurophysiology; EMERGENCY PHYSICIAN Emergency Medicine
DX: A41.89 Other specified sepsis (principal); J69.0 Pneumonitis due to inhalation of food and vomit; E27.40 Unspecified adrenocortical insufficiency; E23.0 Hypopituitarism; M62.82 Rhabdomyolysis; G23.8 Other specified degenerative diseases of basal ganglia; J06.9 Acute upper respiratory infection, unspecified; I95.1 Orthostatic hypotension; E78.5 Hyperlipidemia, unspecified; E11.9 Type 2 diabetes mellitus without complications; R79.89 Other specified abnormal findings of blood chemistry; E86.0 Dehydration; R56.9 Unspecified convulsions; E03.9 Hypothyroidism, unspecified; M10.9 Gout, unspecified; E55.9 Vitamin D deficiency, unspecified; R16.0 Hepatomegaly, not elsewhere classified; R74.01 Elevation of levels of liver transaminase levels; Z11.52 Encounter for screening for COVID-19; Z79.899 Other long term (current) drug therapy; Z85.841 Personal history of malignant neoplasm of brain
CPT/HCPCS: 70450; 71046; 76700; 80053; 81003; 81015; 82306; 82533; 82550; 82947; 82962; 83036; 83735; 84443; 85025; 86704; 86705; 86706; 86708; 86709; 86803; 87040; 87340; 87502; 87811; 93005; 93306; 95816; 96361; 96374; 99285; Q9950

== ENCOUNTER 2025-06-13 22:59 | Inpatient (IN) | payer BC, SELFPAY ==
[2025-06-13 20:35] VITALS: BP 111/76
[2025-06-13 20:58] LABS: Glucose - Point of Care 243 mg/dl (70-99)
[2025-06-13 21:00] VITALS: BP 133/82
--- NOTE | 2025-06-13 21:01 | ED.GENMED ---
History of Present Illness
General
Chief Complaint: Change in Mental Status
Source: patient and spouse
Exam Limitations: none
Time Seen by Provider: 06/13/25 20:50
Nursing documentation reviewed up to this point in time: agreed with
History of Present Illness
History of Present Illness:
Note:
CHIEF COMPLAINT(S)
Altered mental status and decreased responsiveness post-discharge.
HISTORY OF PRESENT ILLNESS
The patient is a 40-year-old male with a history of adrenal insufficiency who was noted to be in an altered mental state by his upon being picked up from the hospital discharge. The patient was initially admitted after an episode on Thursday
morning when he lost consciousness and fell hard on the bathroom floor. The spouse heard a thud and found the patient unconscious, but he regained consciousness after a couple of minutes. Emergency services were contacted, and upon evaluation, he
was brought to the hospital.
The spouse reports that the patient had a cold the previous week but appeared to be otherwise normal without fever. He had taken his usual activities without any noticeable changes. On the day of the incident, he seemed fine upon waking and was last
seen normal Thursday night after taking their daughter to the movies.
During the hospitalization, the patient was diagnosed with an adrenal crisis characterized by significantly low cortisol levels. He was evaluated by various specialists, including neurology, and had a CT scan. He was treated with crisis doses of
steroids which temporarily improved his condition. The spouse was advised to follow up with a neurologist post-discharge.
Upon discharge at approximately 7:15 PM, the spouse noticed the patient seemed off, leading to a re-evaluation. The patient�s breathing was observed to be decreased, and there was a consideration for supportive respiratory intervention. No mention
of pain or pain medication was noted upon inquiry, with the exception that the patient had been on Tylenol for fever management during his hospital stay.
PAST MEDICAL AND SURGICAL HISTORY
- Adrenal insufficiency
- Recent hospitalization for adrenal crisis
CHRONIC MEDICAL CONDITIONS SIGNIFICANTLY AFFECTING CARE
- Adrenal insufficiency
SOCIAL DETERMINANTS AFFECTING HEALTH
The patient�s medical condition significantly affects his daily living, requiring emergency services and continuous monitoring by family members for safety due to possible sudden crises as experienced.
PHYSICAL EXAM
General: Patient is alert but exhibits altered mental status with decreased responsiveness.
Breathing: Decreased; potential need for supportive respiratory intervention noted.
Heart: s1/s2 regular rate and rhythm, no murmur. equal radial
pulses.
HEENT: Pupils equal round reactive to light, EOMI
Abdomen: normal bowel sounds. not tender. no CVAT
Neuro: alert and oriented. no focal neurological deficits cranial nerves II through XII intact
Skin: no rash
Psychiatric: well kept. interactive and cooperative
Extremities: no edema. no calf tenderness. negative homans. good distal pulses
PROBLEM LIST
Acute:
- Altered mental status
- Decreased breathing effort
Chronic:
- Adrenal insufficiency
PLAN
- Order stress doses of steroids for adrenal insufficiency management.
- Conduct laboratory evaluation to assess current medical status.
- Monitor respiratory function and consider respiratory support if necessary.
- Review patient�s medical records to verify ongoing treatment and follow-up recommendations.
DIFFERENTIAL DIAGNOSIS
The Differential Diagnosis includes, in no particular order and is not limited to:
1. Adrenal Crisis
2. Infection or Sepsis
3. Electrolyte Imbalance
4. Hypoglycemia
5. Acute Hypoxia
6. Intracranial Event (e.g., stroke, hemorrhage)
7. Medication Side Effect
8. Hypotension-related syncope
9. Myocardial Infarction
10. Metabolic Disorder
CARE-UPDATE
06/14/25 - 02:57
Upon reassessment, the patients mental status remains altered, but there is no further deterioration. The presales consultant shoe stitcher recommended initiating intravenous hydrocortisone for suspected adrenal crisis, starting with a loading dose of 100
mg followed by a maintenance dose every 6 hours. Infectious disease consultation suggested narrowing antibiotic therapy to ceftriaxone and azithromycin pending culture results, due to clinical stability and to address multifocal pneumonia.
Continuous monitoring of vital signs and mental status is advised, with a plan to taper corticosteroids as the patient stabilizes.
Disposition:
SUMMARY OF ENCOUNTER
The patient, a 40-year-old male with a history of adrenal insufficiency, was brought to the emergency department post-discharge due to altered mental status and decreased responsiveness. The patient was previously hospitalized for an adrenal crisis
after a syncopal event at home and sustained a loss of consciousness. Upon discharge, the patients mental status declined, and he exhibited decreased breathing effort. In the emergency department, he was suspected to have recurrent adrenal crisis,
hypoxia, and multifocal pneumonia, necessitating readmission for further management.
DISPOSITION
Admit to Intensive Monitoring Unit (IMU).
ASSESSMENT
The patient is experiencing a suspected adrenal crisis with hypoxia and multifocal pneumonia post-discharge, requiring urgent intervention and close monitoring.
MANAGEMENT OF THE PATIENTS CARE WAS DISCUSSED WITH
Distillation Operator consulted recommended intravenous hydrocortisone. Infectious disease consult suggested initiating ceftriaxone and azithromycin for pneumonia.
PLAN
- Administer intravenous hydrocortisone loading dose of 100 mg followed by maintenance dosing.
- Initiate antibiotic therapy with ceftriaxone and azithromycin.
- Continuous monitoring of vital signs and mental status.
- Taper corticosteroids as the patient stabilizes.
INDEPENDENT REVIEW OF LABS AND INTERPRETATION OF TESTS
My independent review of labs suggests low cortisol levels indicating possible adrenal insufficiency exacerbation.
MEDICATION RECONCILIATION
- Hydrocortisone 100 mg IV.
- Ceftriaxone IV.
- Azithromycin IV.
MEDICAL DECISION MAKING
- Complexity of Data Reviewed: Chronic conditions affecting care include adrenal insufficiency. Differential diagnoses include adrenal crisis, hypoxia, and multifocal pneumonia.
- Data:
Category 1: Labs conducted included cortisol levels suggesting adrenal insufficiency.
Category 3: Discussed management with shoe stitcher and infectious disease specialist.
-Risk: Admission to IMU due to serious condition requiring intensive monitoring and IV medication administration.
DIAGNOSIS
- Adrenal crisis (ICD-10: E27.2)
- Hypoxia (ICD-10: R09.02)
- Multifocal pneumonia (ICD-10: J18.9)
Past History
Past History
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
Social History
Tobacco: Non-smoker
Alcohol: None
Personal:
Living: with family
Phy Exam
Physical Exam
Physical Exam:
.
Course
Orders/Labs/Results
Orders:
Orders
06/13/25 20:59
CT Head W/o Iv Contrast Urgent
Comment:
Reason For Exam: altered mental status
IV Insert/Care/Rem.- Treatment PRN
Hydrocortisone Sod Succinate [Solu-Cortef] 100 mg IV NOW STA
06/13/25 21:09
CR Chest Portable - 1 View Urgent
Comment:
Reason For Exam: short of breath
Reason Study Needs to be Portable: Patient Unstable
06/13/25 21:11
Complete Blood Count/With Diff Urgent
Comprehensive Metabolic Panel Urgent
Cortisol, Random Urgent
06/13/25 21:43
Bipap [RESP] Urgent
Patient to use own unit?: No
Inspiratory Pressure (cm H2O): 10
Expiratory Pressure (cm H2O): 5
06/13/25 22:55
Ammonia Stat
Venous Blood Gas Stat
%Oxygen/Room Air: RA
06/13/25 22:57
CT Chest W/o Iv Contrast Stat
Comment:
Reason For Exam: f/u xray, overlying soft tissue vs RUL pna
Abnormal Lab Results
06/13/25 06/13/25 06/13/25
20:57 21:11 22:55
RBC 4.39 L 10^6/uL
(4.70-6.10)
Hgb 12.1 L g/dL
(13.0-18.0)
Hct 34.2 L %
(39.0-52.0)
MCV 77.9 L fL
(80.0-94.0)
Abs Immat Gran (auto) 0.1 H 10^3/uL
(0-0.05)
Absolute Neuts (auto) 9.0 H 10^3/uL
(1.4-6.5)
Absolute Lymphs (auto) 1.1 L 10^3/uL
(1.2-3.4)
Immature Gran % 1.3 H %
(0-0.5)
Neutrophils % 84.4 H %
(42.2-75.2)
Lymphocytes % 10.6 L %
(20.5-51.1)
VBG pH 7.45 H
(7.32-7.43)
VBG pO2 115 H mmHg
(30-50)
VBG HCO3 33.4 H mmol/L
(22-27)
Sodium 130 L mmol/L
(135-145)
Chloride 91 L mmol/L
(98-107)
Glucose 195 H mg/dl
(70-99)
Total Bilirubin 2.2 H mg/dl
(0.2-1.3)
AST 167 H U/L
(17-59)
ALT 189 H U/L
(0-50)
Alkaline Phosphatase 135 H U/L
(38-126)
Total Protein 8.4 H g/dl
(6.3-8.2)
POC Glucose 243 H mg/dl
(70-99)
06/13/25 21:11
06/13/25 21:11
Vital Signs
Initial and Last Documented VS:
Initial Vital Signs
Temp Pulse Resp BP Pulse Ox
99.1 F 105 18 111/76 97
06/13/25 20:35 06/13/25 20:35 06/13/25 20:35 06/13/25 20:35 06/13/25 20:35
Last Documented Vital Signs
Temp Pulse Resp BP Pulse Ox
99.2 F 89 21 109/74 95
06/14/25 01:17 06/14/25 00:30 06/14/25 00:30 06/14/25 00:00 06/14/25 02:03
*Pulse Oximetry
SaO2: 81
Oxygen Mode of Delivery: Room air
Patient hypoxic: yes
*Critical Care Note
Total Time (30-74mins, 75-104mins- exclusive of procedures): 32
comment:
Critical care statement: A total of 32 minutes of critical care time was provided for this patient. This includes management of unstable vital signs, evaluation of the patient at bedside, reviewing the patient's pertinent medical records, discussion
with consultants, review of old EKGs and review of pertinent medical records. This time with separate from time utilized to perform the aforementioned documented procedures
ED Attending Note
-
Portions of this chart may have been created with voice recognition software.� Occasional wrong word or��sound alike� substitutions may have occurred due to the inherent limitations of voice recognition software.
Discharge Plan
Departure
Patient Disposition: Admit
Date of Disposition: 06/13/25
Time of Disposition: 21:54
Admit to: ICU
Presentation/result/management discussed w/ accepting MD/DO: Hospitalist
Patient with high blood pressure during this ER visit?: No
Condition: Serious
Discharge Problem:
Adrenal insufficiency, Acute alteration in mental status
Interventions
Interventions:
*Risk Screen - Suicide Last Done: 06/13/25 20:35
*General Assessment Last Done: 06/13/25 20:35
*Neglect/Abuse Screening Last Done: 06/13/25 20:55
*ED- Fall Risk Assessment Last Done: 06/13/25 20:55
*ED COVID-19 Vaccine History Last Done: 06/13/25 21:02
*Nursing Disposition Last Done: 06/14/25 01:18
ED- Pulmonary Assessment Last Done: 06/14/25 01:18
ED-Psychological Assessment Last Done: 06/14/25 01:18
ED- Neurological Assessment Last Done: 06/13/25 20:55
ED- Cardiac Assessment Last Done: 06/13/25 20:55
ED Swallowing Screen Last Done: 06/13/25 21:02
Discharge Date and Time
Discharge Date/Time: 06/14/25 01:21
[2025-06-13 21:03] VITALS: BMI 29.0
[2025-06-13] MEDS: SOLU-CORTEF 100 MG IV (21:07)
[2025-06-13 21:22] LABS: Hematocrit 34.2 % (39.0-52.0); Hemoglobin 12.1 g/dL (13.0-18.0); Mean Corp Hgb Conc. 35.4 g/dL (33.0-37.0); Mean Corpuscular Volume 77.9 fL (80.0-94.0); Nucleated Red Blood Cells % 0.3 % (-); Platelet Count 250 10^3/uL (130-400); Red Cell Dist. Width 13.5 % (11.5-14.5)
[2025-06-13 21:34] LABS: ALT (SGPT) 189 U/L (0-50); AST (SGOT) 167 U/L (17-59); Albumin 4.9 g/dl (3.5-5.0); Alkaline Phosphatase 135 U/L (38-126); Blood Urea Nitrogen 18 mg/dl (9-20); Calcium 8.4 mg/dl (8.4-10.2); Carbon Dioxide 30 mmol/L (22-30); Chloride 91 mmol/L (98-107); Estimated Creatinine Clearance 104 ml/min; Glucose 195 mg/dl (70-99); Potassium 3.8 mmol/L (3.5-5.1); Sodium 130 mmol/L (135-145); Total Protein 8.4 g/dl (6.3-8.2); eGFR > 60.00
[2025-06-13 22:00] VITALS: BP 127/75
[2025-06-13 22:05] LABS: Cortisol, Random 12.1 ug/dl
[2025-06-13 22:16] VITALS: PULSE 89
--- NOTE | 2025-06-13 22:35 | HPS.HSE ---
Family Physician
-
Family Physician: NOT KNOW UNKNOWN - PT DOES
Chief Complaint
-
Somnolent
History of Present Illness
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
secondary to resection of thyroid for thyroid cancer who was admitted to the hospital on 06/10 for a fever and adrenal crisis, subsequently discharged this evening and then brought back to the emergency department right at pickup due to increasing
weakness altered mental status and left-sided facial droop according to spouse.
Patient was admitted on Thursday following a fall/syncope after spouse reported that he had epistaxis preceded by some rhinorrhea/sinus congestion. There were several sick contacts at home with upper respiratory infections. Patient was in normal
state of health on Thursday. However later on spouse reported that she had at she did not witness the fall. When she came to see him he was not responsive. This lasted for about 2 minutes and then he came back to slowly. EMS was called and was
brought to the emergency department. There was concern for seizure. Patient had a CT scan which was unremarkable. He had a fever and infectious workup which was also negative. There was concern that he had some proclivity due to seizures due to
preceding the calcifications and the seizure threshold was reduced in the setting of an acute infection and adrenal insufficiency. He was treated for adrenal insufficiency with IV dose Solu-Cortef which has now been tapered to 20 mg 5 and 10. He
declined antiepileptic drugs. Infectious workup negative.
At time of discharge the patient apparently was able to get on a wheelchair but when he arrived at the door of his car he was not able to get up. He was sleepy and spouse reported that he had a left facial droop. He seemed unable to answer
questions quickly. When I asked him he did become more alert over time. He is oriented to person place and year. He is slow to respond to more detailed questioning but now is able to relay his birthdate and name of his children name of his
spouse. He is moving all 4 extremities but not spontaneously only when asked. Seems to have slight right-sided upper extremity weakness. He has bilateral lower extremity weakness which may be secondary to his somnolence. Was somnolent enough to
be placed on BiPAP in the emergency department. He has no new fevers.
In the emergency department blood pressure was 111/76 pulse was 103 he had a temp only 9.1 and was satting 92% on BiPAP.
Chest x-ray shows no acute infiltrates. His labs shows a white count of 10.6 hemoglobin of troponin I plate count of 250. Sodium was 130 bicarb 30 with the rest of the electrolytes BUN/creatinine being normal. He has uptrending AST ALT which were
previously.
CT of the head shows no acute intracranial process but a small left frontal scalp soft tissue contusion. Chest Xray: There is an opacity projecting over the lateral right upper lung. No pleural effusion or pneumothorax.
Medical History
Past Medical History
Past Medical History: Reports Other
Additional Past Medical History:
Brain CA at age 1 - with surgery, radiation and chemo.
thyroidectomy,
Adrenal insufficiency
Very hard of hearing
Past Surgical History: Reports Other
Additional Past Surgical History:
brain surgery
Social History
Tobacco: Non-smoker
Alcohol: None
Drug: None
Personal:
Living: With Family
Employment: Employed
Family History
Family History: Not pertinent
Allergies / Home Medications
Allergies reflects when Allergies were last updated in [employer].
Home Medications with original date entered in [employer]
Allergy/Medication List:
Allergies
Allergy/AdvReac Type Severity Reaction Status Date / Time
No Known Allergies Allergy Unverified 12/06/22 19:31
Home Medications
allopurinol 100 mg tablet 100 mg PO DAILY 12/06/22
fenofibrate 160 mg tablet 160 mg PO DAILY 12/06/22
hydrocortisone 10 mg tablet 10 mg PO DAILY 12/06/22
icosapent ethyl 1 gram capsule (Vascepa) 2 g PO BID 12/06/22
levothyroxine 137 mcg tablet 137 mcg PO DAILY 12/06/22
metformin 1,000 mg tablet 1,000 mg PO DAILY 12/06/22
testosterone 4 mg/24 hr transdermal 24 hour patch (Androderm) 1 patch transdermal QPM 12/06/22
Review of Systems
-
Unable to obtain full review of systems at this time due to: Acuity
Physical Exam
Vital Signs
Vital Signs
Temp Pulse Resp BP Pulse Ox
99.1 F 101 21 127/75 92
06/13/25 20:35 06/13/25 22:15 06/13/25 22:15 06/13/25 22:00 06/13/25 22:29
Physical Exam
General: No Apparent Distress and Slurred Speech
HEENT: NormoCephalic, Anicteric, Moist mucous membranes, PERRLA and Other (BIPAP); No Oxygen
Respiratory: Clear (clear anteriorly)
Cardiac: S1/S2 and Regular Rhythm
GI: Soft, Non Tender, Non Distended, Normal Bowel Sounds and No Hepatosplenomegaly
Rectal: Deferred by Provider
Genito-urinary: Deferred by me
Musculoskeletal: No Clubbing, No Cyanosis and No Edema
Skin: Warm
Neuro: Oriented (oriented x 3), Cranial Nerves Intact, No Sensory Deficits, DTR's Intact & Symmetrical and Other (slight right sided hand weakness, 4/5 strenght in bilateral lower extremities); No Facial Droop
Hematologic/Lymphatic: No Lymphadenopathy
Laboratory Results
-
06/13/25 21:11
06/13/25 21:11
Laboratory Results
Total Bilirubin 2.2 mg/dl (0.2-1.3) H 06/13/25 21:11
AST 167 U/L (17-59) H 06/13/25 21:11
ALT 189 U/L (0-50) H 06/13/25 21:11
Alkaline Phosphatase 135 U/L (38-126) H 06/13/25 21:11
Data Reviewed
-
Diagnostic Radiology: Report Reviewed by me
CT Scan: Report Reviewed by me
Lab Data: Labs Reviewed by me
Old Records: Reviewed
Impression/Plan
-
IMPRESSION:
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
admission with syncopal episode found to be in adrenal insufficiency and possible seizure status post discharge this evening will presents back to the hospital for ongoing weakness, lethargy and somnolence at the time of discharge. Here in the
emergency department he is hemodynamically stable but does appear to have respiratory depression with some CO2 retention. His labs are otherwise unremarkable except for a sodium of 130. Chest x-ray shows a new opacification of the right lung. His
infectious workup over the last 2 days have been negative. Serum glucose measurements without hypoglycemia or DKA. Now on bipap for somnolence
PLAN:
AMS -possibly postictal, concussion or persistent adrenal insufficiency. Unlikely CVA. Possible encephalopathy from pna.
- admit to step down due bipap
- arousable for me, GCS = 10 and answering questions appropriately but slowly.
- vbg, ammonia level, follow prior cultures
- adrenal insufficiency management as below
- mri brain, neurology consult,
- syncope w/u essentially completed with normal Echo
- pna management as below
Adrenal insufficiency - Random Serum cortisol 12.1, increased from prior but still low given stress. Somnolent but HD stable. Na 130.
- on increased dose of steroids but restart taper solu-cortef 50 q 8 for now
- IV NS
ID - No recurrence of fever since 06/10. Bcx ngtd. Viral studies neg. Initial CXR was normal. Now CXR with a new overlying opacity, projecting of the lateral right upper lung, pna vs soft tissue. CT chest confirming dense RUL lung consolidation
with multifocal infiltrates suggestive of multifocal pna.
- possible post viral pna with micro aspiration, negative viral panel
- start IV ceftriaxone/doxycycline
- mrsa swab
- respiratory treatments
- wean bipap overnight as tolerated, Venous blood gas with metabolic alk and mild CO2 retention
- pulm consult.
DM II
lantus 20 hs, premeal aspart 8 units
- sliding scale insulin
Hypothryoid
- continue his levothyroxine
Elevated LFTs - Elevated for some time now further increased. Fatty liver on U/S. Negative viral hepatitis w/u
- given age, getting additional screening serologies including cerulosplasm, transferrin and ama
- non-emergent outpatient liver eval for MASLD
DVT PPX - lovenox sq
Code status - Full code
[2025-06-13 23:00] VITALS: BP 111/72
[2025-06-13 23:02] LABS: Venous Blood Gas B.E. 8.3 mmol/L (-4 to +4); Venous Blood Gas O2 Sat % 98.8 %
[2025-06-13 23:16] LABS: Ammonia 11 umol/L (9-30)
[2025-06-14] VITALS (11 sets, daily range): BP systolic 94–127; BP diastolic 73–88; PULSE 2–88; BMI 28.1
[2025-06-14] MEDS: VIBRAMYCIN 260 MG IV (00:17)
[2025-06-14] MEDS: ROCEPHIN 1000 MG IV (00:17)
[2025-06-14] MEDS: NSS 1000 IV (01:33)
[2025-06-14] MEDS: SOLU-CORTEF 50 MG IV ×4 (05:01→23:58)
[2025-06-14] MEDS: SYNTHROID 137 MCG PO (05:02)
[2025-06-14 05:47] LABS: Hematocrit 30.9 % (39.0-52.0); Hemoglobin 10.8 g/dL (13.0-18.0); Mean Corp Hgb Conc. 35.0 g/dL (33.0-37.0); Mean Corpuscular Volume 78.2 fL (80.0-94.0); Platelet Count 225 10^3/uL (130-400); Red Cell Dist. Width 13.4 % (11.5-14.5); Venous Blood Gas B.E. 4.7 mmol/L (-4 to +4); Venous Blood Gas O2 Sat % 99.1 %
[2025-06-14 06:14] LABS: Blood Urea Nitrogen 20 mg/dl (9-20); Calcium 7.8 mg/dl (8.4-10.2); Carbon Dioxide 27 mmol/L (22-30); Chloride 96 mmol/L (98-107); Estimated Creatinine Clearance > 125 ml/min; Glucose 240 mg/dl (70-99); Magnesium 2.2 mg/dl (1.6-2.3); Potassium 4.4 mmol/L (3.5-5.1); Sodium 133 mmol/L (135-145); eGFR > 60.00
--- NOTE | 2025-06-14 07:39 | W.PN.HOSP.TC ---
Today's Communication/Plan
-
Pneumonia diagnosed and treated with ceftriaxone, doxycycline, and vancomycin.
Tapering during stress dose hydrocortisone 50 mg IV every 8 hours.
Transition from BiPAP to 4 L nasal cannula
Assessment / Plan
Assessment / Plan
IMPRESSION:
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
admission with syncopal episode found to be in adrenal insufficiency and possible seizure status post discharge this evening will presents back to the hospital for ongoing weakness, lethargy and somnolence at the time of discharge. Here in the
emergency department he is hemodynamically stable but does appear to have respiratory depression with some CO2 retention. His labs are otherwise unremarkable except for a sodium of 130. Chest x-ray shows a new opacification of the right lung. His
infectious workup over the last 2 days have been negative. Serum glucose measurements without hypoglycemia or DKA. Now on bipap for somnolence
PLAN:
#AMS - possibly postictal, concussion or persistent adrenal insufficiency. Unlikely CVA. Possible encephalopathy from pna.
- admit to step down due to bipap. Weaned to 4 L nasal cannula
- arousable, GCS = 10 and answering questions appropriately but slowly.
- vbg, ammonia level, follow prior cultures
- adrenal insufficiency management as below
- mri brain, neurology consult,
- syncope w/u essentially completed with normal Echo
- pna management as below
#Adrenal insufficiency - Random Serum cortisol 12.1, increased from prior but still low given stress. Somnolent but HD stable. Na 130.
- on increased dose of steroids but restart taper solu-cortef 50 q 8. May taper to 25 mg hydrocortisone IV every 8 hours tomorrow.
- IV NS
- endocrinology consult
#ID - No recurrence of fever since 06/10. Bcx ngtd. Viral studies neg. Initial CXR was normal. Now CXR with a new opacity over lateral right upper lung. CT chest confirming dense RUL lung consolidation with multifocal infiltrates suggestive of
multifocal pna.
- IV ceftriaxone/doxycycline/vancomycin
- mrsa swab
- respiratory treatments
- wean bipap as tolerated, Venous blood gas with metabolic alk and mild CO2 retention
- pulm consult
- ID consult
- GI consult
#DM II
Metformin. lantus 20 hs, premeal aspart 8 units
- sliding scale insulin
#Hypothryoid
- continue his levothyroxine
#Elevated LFTs - Elevated for some time now further increased. Fatty liver on U/S. Negative viral hepatitis w/u
- given age, getting additional screening serologies including cerulosplasm, transferrin and ama
- non-emergent outpatient liver eval for MASLD
DVT PPX - lovenox sq
Code status - Full code
Anticipated Discharge: > 48 hours
Subjective/Interval History
-
Date of Service: June 14, 2025
No acute events overnight. Patient states he is feeling a lot better this morning for the last night.
called and was upset about pneumonia not being diagnosed in the previous admission. Explained to the that last admissions chest x-ray did not demonstrate pneumonia and the patient's symptoms improved daily, not providing an indication to
repeat chest imaging. Expressed that we want to help the patient get better and with her goals.
assumed that we were tapering the hydrocortisone in a standard way, not individualized to Mr. Knutson. It was explained to the that the taper was individualized to Mr. Knutson; we were monitoring his blood pressure and only tapering if his
blood pressure had been stable. was requesting the patient stay in his current room due to to the one-to-one nursing to patient ratio. asked about the reason for last admission's echocardiogram. Explained that was part of the syncope
workup.
Objective Data
-
Labs:
Laboratory Results
06/13/25 06/14/25
21:11 05:12
WBC 10.6 11.1 H
Hgb 12.1 L 10.8 L
Hct 34.2 L 30.9 L
Plt Count 250 225
Sodium 130 L 133 L
Potassium 3.8 4.4
Chloride 91 L 96 L
Carbon Dioxide 30 27
BUN 18 20
Creatinine 1.0 0.8
Glucose 195 H 240 H
Calcium 8.4 7.8 L
Total Bilirubin 2.2 H
AST 167 H
ALT 189 H
Alkaline Phosphatase 135 H
Vital Signs:
Vital Signs
Temp Pulse Resp BP Pulse Ox
99.2 F 96 23 127/79 97
06/14/25 01:17 06/14/25 07:15 06/14/25 07:15 06/14/25 01:00 06/14/25 07:15
Review of Systems
-
History Source: Patient and Family
Constitutional: Reports No Symptoms
EENT: Reports Other (Lower extremities felt cold, but the patient was comfortable and wanted his lower extremities to remain uncovered by blankets)
Cardiac: Reports No Symptoms
Abdomen/GI: Reports No Symptoms
Genitourinary: Reports No Symptoms
Musculoskeletal: Reports No Symptoms
Skin: Reports No Symptoms
Neuro: Reports No Symptoms
Physical Exam
-
General: Well Developed, Well Nourished, No Apparent Distress, Comfortable and Conversant
Respiratory: Other (Satting at 94% on BiPAP; patient requested to wean. Satting at 92% on 4 L nasal cannula)
Cardiac: Regular Rhythm and S1/S2
GI: Soft, Nontender, Nondistended and Normal Bowel Sounds
Musculoskeletal: No Clubbing, No Cyanosis, No Edema and Other (Lower extremities cooler to touch; moving all extremities spontaneously)
Skin: Dry and Other
Neuro: Awake, Alert and Oriented
Psych: Calm
Data Reviewed
-
Total Time Spent with Patient (in minutes): 55
Diagnostic Radiology: Report Reviewed by me
CT Scan: Report Reviewed by me
Labs: Labs Reviewed by me
Old Records: Reviewed
[2025-06-14 08:11] LABS: Glucose - Point of Care 228 mg/dl (70-99)
[2025-06-14] MEDS: TRICOR 145 MG PO (08:58)
[2025-06-14] MEDS: ASPIR LOW (ENTERIC COATED) 81 MG PO (08:58)
[2025-06-14] MEDS: NOVOLOG FLEXPEN 8 UNITS SC ×3 (09:26→18:22)
[2025-06-14] MEDS: NOVOLOG FLEXPEN-LOW RESISTANCE 2 UNITS SC ×2 (09:26→18:22)
--- NOTE | 2025-06-14 09:40 | W.PN.UPDATE ---
Update Note
Progress Note Update
I saw and evaluated the patient. I reviewed the resident�s note and agree with findings and plan as documented in the resident�s note.
Denies CP/SOB. States he feels significantly improved since arrival to the ER.
Gen: NAD, Awake and alert
Eyes: EOMI, PERRLA, no scleral icterus.
Neck: supple.
CV: RRR, +S1/S2, no m/r/g.
Resp: coarse BS RUL
Abd: +BS, soft, NT, ND
Skin: No rashes.
Neuro: CN 2-12 intact, non-focal.
Psych: Normal mood and affect.
CXR: There is a new opacity projecting of the lateral right upper lung, possibly overlying soft tissue although pneumonia is possible. Consider dedicated CT chest for further evaluation.
CT chest: Right upper lobe pneumonia. Other pulmonary opacities suggesting pneumonia and/or aspiration. Imaging follow-up to resolution is recommended. Trace right pleural effusion.
Acute hypoxemic respiratory failure due to PNA:
-acute metabolic encephalopathy on admission
-in the setting of adrenal insufficiency, currently on stress dose steroids
-BCxs from 06/10/25 [facility], COVID/Flu 06/10/25 [facility]
-minimal leukocytosis, afebrile
-as pt was recently hospitalized change abx to Vanco/Zosyn, MRSA swab pending
-pulm to see
-currently on 5L NC O2, wean O2 as tolerated
Elevated LFTs:
-likely related to infection
-Abd U/S: Hepatomegaly and echogenicity in the liver, compatible with underlying hepatocellular disease, which most commonly relates to fatty infiltration of the liver.
-c/s GI
DM2:
-a1c 11.6%
-diabetes DOG GROOMER saw in c/s last admission
-cont with Lantus 20U, premeal Novolog 8U on d/c
Adrenal insufficiency:
-chronic with acute exac due to PNA
-cont stress dose steroids
-c/s endocrine
Hypothyroidism:
-h/o thyroidectomy
-cont Levoxyl
Other problems:
HLD: cont Vascepa/fenofibrate
Gout: cont allopurinol
vitamin D deficiency
h/o medulloblastoma with radiation at age 1
Pt's updated over the phone.
Total time spent on today's encounter was 55 minutes which included time spent in counseling the patient/family regarding diagnosis and treatment plan as listed above, goals of care, and symptom management. Case was discussed with nursing staff,
specialists, and care coordinators/case management. All labs and imaging personally reviewed by me. Remainder the time spent in detailed review of previous records, lab data, imaging, and other medical provider documentation.
--- NOTE | 2025-06-14 09:56 | PHA.VAN.IN ---
Assessment
- Assessment
Renal Function: Appears similar to baseline
Concomitant Antimicrobials: piperacillin/tazobactam
AUC Dosing Plan
- Dosing Variables
Dosing Weight (kg): 92
Dosing CrCl (ml/min): 125
Vd coefficient (L/kg): 0.7
- Empiric Dosing
Maintenance Regimen: Vanc 1500mg Q12H - first dose now then 1800 in lieu of load
Estimated AUC (mcg*h/mL): 466
Estimated Peak (mcg*h/mL): 32
Estimated Trough (mcg/ml): 10.3
Estimated Half Life (H): 6.4
- Monitoring
No levels ordered at this time: consider levels in next few days
MRSA Screen: Ordered per protocol
Pharmacokinetics Vancomycin I
- -
Patient Age: 40
Patient Sex: Male
Vancomycin Day #: 1
Indication: Pulmonary/Respiratory
Requesting Provider: Dr. Savage
Pertinent Antimicrobial Allergies:
NKDA
Height / Weight:
Height 5 ft 11 in
Actual Weight 91.5 kg
Pertinent Past Medical History: DM 2
- Vital Signs / Lab Results
Temp Pulse Resp BP Pulse Ox
99.6 F 77 19 100/73 92
06/14/25 07:45 06/14/25 09:26 06/14/25 09:26 06/14/25 09:26 06/14/25 09:40
Lab Results - Hematology
06/13/25 06/14/25
21:11 05:12
WBC 10.6 11.1 H
Lab Results - Chemistry
06/13/25 06/14/25
21:11 05:12
BUN 18 20
Creatinine 1.0 0.8
Estimated Creat Clear 104 > 125
Albumin 4.9
[2025-06-14] MEDS: ZOSYN 50 IV (09:57)
--- NOTE | 2025-06-14 10:02 | PTCARENOTE ---
Assumed care of pt from experimental electronics developer RN. AAOx3. NSR on tele, HR 80s. Transitioned off of BiPAP to 4L nasal cannula, SpO2 94% on 4L. GI consult placed for elevated LFTs. IV abx initiated. Plan for MRI brain today. Assessment documented. Pt resting in
bed, call yang in reach.
--- NOTE | 2025-06-14 10:13 | CON.PUL ---
Consultation
Consultation Request
Date/Time Consultation Requested: 06/14/2025
Date/Time Consultation Performed: 06/14/2025
Requesting Provider: Dr. Savage
Performing Provider: Dr. Stevie Castano
Reason for Consultation: Pneumonia
Medical History
-
History of Present Illness:
40-year-old man with past medical history significant for adrenal insufficiency, prior brain surgery at age 1 due to brain cancer status post radiation and chemotherapy at that age, subsequent hypopituitarims, hypothyroidism, discharged from the ""hospital 06/12/2025. Records reviewed.
Patient was brought in by EMS due to loss of consciousness-possibly postictal-apparently he was having URI symptoms at that time. Imaging of the brain did not show any acute abnormalities.
Infection workup at that time negative
Chest x-ray without infiltrates.
Patient did receive stress dose of hydrocortisone at that time for possible adrenal crisis.
He was offered antiseizure medication by neurology at that time but patient declined as 2 episodes were possibly associated with acute illness/fevers.
Prior episode was in 2021 where he was admitted with sepsis.
-
-
Past Medical History
Past Medical History: Other (See assessment and plan)
Social History
Tobacco: Non-smoker
Alcohol: None
Drug: None
Personal:
Living: With Family
Family History
Family History: Reviewed & Not Pertinent
Allergies / Home Medications
Allergies
Allergy/AdvReac Type Severity Reaction Status Date / Time
No Known Allergies Allergy Verified 06/13/25 20:35
Home Medications
�Medication �Instructions �Recorded �Confirmed �Last Taken �Type
fenofibrate 160 mg tablet 160 mg PO DAILY High cholesterol 12/06/22 06/13/25 06/09/25 History
icosapent ethyl 1 gram capsule 2 g PO BID High cholesterol 12/06/22 06/13/25 06/09/25 History
(Vascepa)
levothyroxine 137 mcg tablet 137 mcg PO DAILY Thyroid 12/06/22 06/13/25 06/09/25 History
metformin 1,000 mg tablet 1,000 mg PO DAILY Diabetes 12/06/22 06/13/25 06/09/25 History
testosterone 20 mg topical HS Hormonal Agent 06/10/25 06/13/25 06/09/25 History
hydrocortisone 5 mg tablet 5 mg PO QPM #30 tabs 06/12/25 06/13/25 Unknown Rx
aspirin 81 mg tablet 81 mg PO DAILY Blood Clot 06/13/25 06/13/25 Unknown History
Prevention/Tx
hydrocortisone 10 mg tablet 10 mg PO DAILY@1500 #30 tabs 06/13/25 06/13/25 Unknown Rx
hydrocortisone 20 mg tablet 20 mg PO DAILY #30 tabs 06/13/25 06/13/25 Unknown Rx
insulin aspart U-100 100 unit/mL 8 unit (0.08 mL) SC AC #5 ea 06/13/25 06/13/25 Unknown Rx
(3 mL) subcutaneous pen (Novolog
FlexPen U-100 Insulin aspart)
insulin glargine 100 unit/mL (3 20 unit (0.2 mL) SC HS #5 ea 06/13/25 06/13/25 Unknown Rx
mL) subcutaneous pen (Lantus
Solostar U-100 Insulin)
pen needle, diabetic 32 gauge x #100 ea 06/13/25 06/13/25 Unknown Rx
'
Review of Systems
-
History Source: Patient
All other systems: Negative unless noted
Vitals / Labs / Diagnostic Testing
Vital Signs
Temp Pulse Resp BP Pulse Ox
99.6 F 77 19 100/73 92
06/14/25 07:45 06/14/25 09:26 06/14/25 09:26 06/14/25 09:26 06/14/25 09:40
Lab Data
06/14/25 05:12
06/14/25 05:12
Diagnostic Testing:
Physical Exam
-
HEENT: Normocephalic
Cardiovascular: S1/S2
Respiratory: Non-Labored Respirations
GI: Soft and Non Distended
Neurology: Awake
Skin: Warm
General: Respiratory Distress (n) and Comfortable
Assessment
-
40-year-old man with history of adrenal insufficiency, recent discharge from the hospital 06/12/2025 after being evaluated for syncopal/seizure episode associated with upper respiratory infection. He was observed in the hospital for about 48 hours
and did not have any fevers, chest x-ray was negative, cultures were negative. Patient was discharged and immediately return home with extreme weakness, sleepiness, left facial droop. Change in mental status. Brought back for evaluation. Repeat
chest x-ray demonstrated right upper lobe infiltrate. CT chest confirmed right upper lobe abnormality-we were consulted for evaluation of abnormal CT chest.
Right upper lobe pneumonia.
Chest x-ray 06/13/2025: Reviewed-right upper lobe pleural-based infiltrate.
CT chest reviewed: 06/13/2025 right upper lobe dense consolidation, bilateral trace pleural effusions, bibasilar opacities suggestive of subsegmental atelectasis.
Hypoxemic respiratory insufficiency secondary to above-currently on 4 L.
ABG VBG 06/14/2025: 7.37/54/142. Does not suggest decompensated hypercapnia.
Low-grade fever
Leukocytosis
Suspected adrenal crisis secondary to above.
Transaminitis-prior right upper ultrasound with fatty liver changes.
Anemia
Conditions present prior admission:
History of adrenal insufficiency-hypopituitarism.
Type 2 diabetes
History of thyroidectomy for thyroid cancer, with subsequent hypothyroidism
Hard of hearing
History of medulloblastoma-status postsurgery/radiation and chemotherapy at age 1.
Transaminitis: Hepatomegaly-likely fatty liver disease.
Assessment and plan:
Imaging compatible with pneumonia-possibly bacterial.
Unclear if these was evolving During last admission versus this was an aspiration event after a syncopal episode.
Multiple x-rays reviewed.
Chest x-ray from 06/10/2025 when he was admitted to the hospital negative for infiltrate.
Current imaging of the chest with right upper lobe dense infiltrate as well as trace bilateral pleural effusion with subsegmental atelectasis.
-
Sputum culture if able-currently not producing.
Blood cultures
Agree with antibiotics -pip-tazo/vancomycin until cultures resulted. Patient was in the hospital within 72 hours.
MRSA screening pending
Blood cultures from 06/10/2025 were negative. Will repeat
Sputum culture if able.
Influenza screening - 06/10/2025
COVID-negative 06/10/2025
-
I agree with therapy for adrenal insufficiency with IV hydrocortisone as you are-explained to patient and father that this is likely reason for his weakness in the setting of infection.
-
Will encourage incentive spirometry-there is bibasilar subsegmental atelectasis
Increase activity as able
Wean FiO2 to maintain pulse ox above 90%-currently at 4 L.
Patient denies history of pulmonary disease.
-
Increased LFTs: Right upper quadrant ultrasound suggestive of fatty liver
Slightly increased compared to prior
GI has been consulted
Hepatitis panel negative
-
Physical therapy/Occupational Therapy
Aspiration precautions
Had a limb elevation
-
Uncontrolled diabetes:
Hyperglycemia: Insulin subcu
Management per primary team
-
DVT prophylaxis-Lovenox
-
Dr. Castano updated father at the bedside, reviewed images with him.
Discussed with Dr. Savage as well.
-
Data reviewed:
Echocardiogram 06/13/2025:
1. No biventricular size and systolic function.
2. No signficant valve disease.
3. No prior study available for comparison.
-
CT chest 06/13/2025:
No axillary, mediastinal, or hilar lymphadenopathy.
The heart is normal in size. No pericardial effusion. No coronary artery calcifications.
LUNGS: Right upper lobe consolidative opacity with air bronchograms, most compatible with pneumonia. Smaller scattered nodular opacities noted in both lungs with a few in the bilateral upper lobes. Peribronchial opacities in the basilar aspects of
the bilateral lower lobes, right greater than left. Trace right pleural effusion. No pneumothorax. The trachea and central airways are patent.
[2025-06-14] MEDS: VANCOCIN 530 MG IV (10:39)
--- NOTE | 2025-06-14 10:40 | CON.GI ---
Addendum entered and electronically signed by Chin Burt MD 06/14/25 17:49:
The patient was seen and examined by me independently in collaboration with the nurse practitioner.
Past medical history/social history/medications/allergies/family history reviewed.
Lab data and imaging data reviewed.
40-year-old male past medical history of medulloblastoma with radiation, chemo, prior surgery, adrenal insufficiency from hypopituitary is him on chronic steroids with recent admission June 10 to June 13 with loss of consciousness and fall
with syncope and seizure with left kidney and nosebleed and concern for possible respiratory infection and adrenal crisis with fever with negative infectious workup. After being discharged, he came back in as he continued to have issues being
aphasic, and was not alert or oriented so the family brought back in. On this admission, he was found to have pneumonia on imaging.
GIs been consulted for abnormal LFTs. Reviewing the trend, he has had abnormal LFTs as far back as 2022. His AST was as high as 77, ALT as high as 154 in the past. On his readmission on June 11, his AST was 123, ALT 204 which was higher than
previous. His bilirubin was also high at 1.5 which has been high in the past as far back as 2022. No direct bilirubin has ever been checked. His current AST is 167, ALT 189, alkaline phosphatase 135. Total bilirubin 2.2. He had an ultrasound
done on June 12 which did show fatty liver. Hepatitis workup was done and showed no hep C, no acute hep A, no acute hep B with indeterminate hep B vaccination status.
Most likely, I suspect his bilirubin is due to Gilbert's but we are waiting for direct bilirubin to confirm this. Coags have also been ordered and are pending. I suspect his chronic LFT abnormality is due to metabolic associated steatotic liver
disease. His A 1C is elevated as well and does have history of diabetes. I suspect this acute rise is due to the underlying infection; differential includes DILI. A partial liver workup was ordered by the primary team including ceruloplasmin,
AMA, transferrin. At some interval, he will need a full liver workup with autoimmune including FRANTZ, immunoglobulins, anti-smooth muscle antibody, remainder of iron studies, alpha 1 antitrypsin. If LFTs continue to rise, we will do this inpatient
if they return to baseline, this can be done as an outpatient. I discussed with the patient the importance of outpatient GI follow-up for his metabolic associated static liver disease and chronic LFT elevation. He does not drink alcohol. We
discussed the importance of Mediterranean diet with MASLD and risk of cirrhosis.
Original Note:
Consultation
-
Date/Time Consultation Requested: 06/14/25 [id number]
Date/Time Consultation Performed: 06/14/25 [id number]
Requesting Provider: Latrell Savage MD
Performing Provider: TIFFANY Dwyer, Lolis Burt MD
Reason for Consultation: increased LFT's
Medical History
Chief Complaint / HPI
History of Present Illness:
Pt is a 40yo with hx medulloblastoma at age 1 with radiation chemo and prior surgery, basal ganglia calcification, adrenal insufficiency from hypopituitarism on chronic steroids, NIDDM, fatty liver per imaging, hypothyroidism with thyroid CA and
thyroidectomy, gout with admission 06/10- 06/13 with loss of consciousness and fall with syncope/seizure with lethargy with nose bleed prior to admission and concern for resp infection. There was also concern for adrenal crisis with IV steroid
course. During admission pt was noted with fever up to 102 on 06/10 with neg work up for flu, neg blood cx, neg CXR, elevated Ck up to 640. Pt also noted with hbgA1C 11.6. Pt was also noted with increased LFT's possible hypotension related
since 06/10 and prior elevation in past. Abdominal US 06/12 noted Hepatomegaly and echogenicity in the liver, compatible with underlying hepatocellular disease, which most commonly relates to fatty infiltration of the liver and negative hepatitis
serology with indeterminate hep B immunity. Pt was discharged 06/12 and returns 06/13 with continued weakness, change on mental status and left facial droop. CXR and CT chest concern for PNA on return. Asked to see for further rise in LFT's with bili
2.2, AST 167, ALT 189, and alk phos 135. Ceruloplasmin, AMA and transferrin order by medical team pending.
In review with patient and father as pt hard of hearing. Pt denies hx known liver issues in past. He denies any GI issues with odynophagia, dysphagia, GERD, nausea, vomiting, abdominal pain, diarrhea, constipation or rectal bleeding. Pt did no
recall hx EGD or colonoscopy in past. No new medications other than change in steroid dose during last admission. No antibiotics given last admission but now on Vanco and Zosyn.
Past Medical History
Past Medical History: Cancer (thyroid CA with prior thyroidectomy, medulloblastoma at age 1 with chemo, radiation and prior surgery ), Hypothyroidism, NIDDM and Other (basal ganglia calcification, adrenal insufficiency from hypopituitarism, hard of
hearing, gout, vitamin D deficiency, fatty liver )
Past Surgical History: Brain (surgery x 2 )
Social History
Tobacco: Non-Smoker
Alcohol: None
Drug: None
Personal:
Living: With Family
Employment: Employed
Family History
Family History: Other (no family hx liver issues or colon CA or polyps)
Allergies / Home Medications
Allergy/AdvReac Type Severity Reaction Status Date / Time
No Known Allergies Allergy Verified 06/13/25 20:35
�Medication �Instructions �Recorded
fenofibrate 160 mg tablet 160 mg PO DAILY High cholesterol 12/06/22
icosapent ethyl 1 gram capsule 2 g PO BID High cholesterol 12/06/22
(Vascepa)
levothyroxine 137 mcg tablet 137 mcg PO DAILY Thyroid 12/06/22
metformin 1,000 mg tablet 1,000 mg PO DAILY Diabetes 12/06/22
testosterone 20 mg topical HS Hormonal Agent 06/10/25
hydrocortisone 5 mg tablet 5 mg PO QPM #30 tabs 06/12/25
aspirin 81 mg tablet 81 mg PO DAILY Blood Clot 06/13/25
Prevention/Tx
hydrocortisone 10 mg tablet 10 mg PO DAILY@1500 #30 tabs 06/13/25
hydrocortisone 20 mg tablet 20 mg PO DAILY #30 tabs 06/13/25
insulin aspart U-100 100 unit/mL 8 unit (0.08 mL) SC AC #5 ea 06/13/25
(3 mL) subcutaneous pen (Novolog
FlexPen U-100 Insulin aspart)
insulin glargine 100 unit/mL (3 20 unit (0.2 mL) SC HS #5 ea 06/13/25
mL) subcutaneous pen (Lantus
Solostar U-100 Insulin)
pen needle, diabetic 32 gauge x #100 ea 06/13/25
'
blood sugar diagnostic (Contour ##200 06/14/25
Next Test Strips)
lancets 21 gauge (Color Lancets) ##200 06/14/25
Review of Systems
-
History Source: Patient and Family
Constitutional: Reports Fever
EENT: Reports Other (recent epistaxis prior to last admission)
Respiratory: Reports Other (congestion )
Cardiac: Reports No Symptoms
Abdomen/GI: Reports No Symptoms
: Reports No Symptoms
Musculoskeletal: Reports No Symptoms
Skin: Reports No Symptoms
Neurological: Reports Weakness
Endocrine: Reports No Symptoms
Hematologic/Lymphatic: Reports No Symptoms
Vital Signs
Temp Pulse Resp BP Pulse Ox
99.6 F 77 19 100/73 92
06/14/25 07:45 06/14/25 09:26 06/14/25 09:26 06/14/25 09:26 06/14/25 09:40
Physical Exam
Exam
General: Well Developed and Well Nourished
HEENT: Anicteric and Other (cranial changes with hx prior brain surgery x 2 )
Respiratory: Clear
Cardiac: Regular Rhythm
GI: Soft, Non Tender and Non Distended
Musculoskeletal: No Clubbing and No Cyanosis
Skin: Warm and Dry
Neuro: Awake and Alert
Psych: Calm
Results
WBC 11.1 10^3/uL (4.8-10.8) H 06/14/25 05:12
Hgb 10.8 g/dL (13.0-18.0) L 06/14/25 05:12
Hct 30.9 % (39.0-52.0) L 06/14/25 05:12
MCV 78.2 fL (80.0-94.0) L 06/14/25 05:12
Plt Count 225 10^3/uL (130-400) 06/14/25 05:12
Absolute Neuts (auto) 9.0 10^3/uL (1.4-6.5) H 06/13/25 21:11
Sodium 133 mmol/L (135-145) L 06/14/25 05:12
Potassium 4.4 mmol/L (3.5-5.1) 06/14/25 05:12
Chloride 96 mmol/L (98-107) L 06/14/25 05:12
Carbon Dioxide 27 mmol/L (22-30) 06/14/25 05:12
BUN 20 mg/dl (9-20) 06/14/25 05:12
Creatinine 0.8 mg/dL (0.7-1.3) 06/14/25 05:12
Calcium 7.8 mg/dl (8.4-10.2) L 06/14/25 05:12
Total Bilirubin 2.2 mg/dl (0.2-1.3) H 06/13/25 21:11
AST 167 U/L (17-59) H 06/13/25 21:11
ALT 189 U/L (0-50) H 06/13/25 21:11
Alkaline Phosphatase 135 U/L (38-126) H 06/13/25 21:11
Diagnostic Image Results:
06/12/25 US Abdomen Complete/Upper
1. Hepatomegaly and echogenicity in the liver, compatible with underlying hepatocellular disease, which most commonly relates to fatty infiltration of the liver.
CT Chest W/o Iv Contrast
Right upper lobe pneumonia.
Other pulmonary opacities suggesting pneumonia and/or aspiration. Imaging follow-up to resolution is recommended.
Trace right pleural effusion.
Prior GI Procedures:
EGD: none
Colonoscopy: none
Assessment / Plan
-
Pt is a 40yo with hx medulloblastoma at age 1 with radiation chemo and prior surgery, basal ganglia calcification, adrenal insufficiency from hypopituitarism on chronic steroids, NIDDM, fatty liver per imaging, hypothyroidism with thyroid CA and
thyroidectomy, gout with admission 06/10- 06/13 with loss of consciousness and fall with syncope/seizure with lethargy with nose bleed prior to admission and concern for resp infection. There was also concern for adrenal crisis with IV steroid
course. During admission pt was noted with fever up to 102 on 06/10 with neg work up for flu, neg blood cx, neg CXR, elevated Ck up to 640. Pt also noted with hbgA1C 11.6. Pt was also noted with increased LFT's possible hypotension related
since 06/10 and prior elevation in past. Abdominal US 06/12 noted Hepatomegaly and echogenicity in the liver, compatible with underlying hepatocellular disease, which most commonly relates to fatty infiltration of the liver and negative hepatitis
serology with indeterminate hep B immunity. Pt was discharged 06/12 and returns 06/13 with continued weakness, change on mental status and left facial droop. CXR and CT chest concern for PNA on return. Asked to see for further rise in LFT's with bili
2.2, AST 167, ALT 189, and alk phos 135. Ceruloplasmin, AMA and transferrin order by medical team pending. . No new medications other than change in steroid dose during last admission. No antibiotics given last admission but now on Vanco and Zosyn.
-increased LFT's
-concern for PNA
-fever last admission/leukocytosis
-weakness/change in mental status possible Seizure
-epistaxis prior to admission
-fatty liver per imaging
-hyponatermia
other med problems:
-medulloblastoma at age 1 with radiation chemo and prior surgery
-basal ganglia calcification
-adrenal insufficiency from hypopituitarism on chronic steroids
- NIDDM with marked elevated hbgA1C 11.6
-hypothyroidism with thyroid CA and thyroidectomy
-gout
PLAN:
etiology of elevated LFT's related to infection with PNA vs drug induced other -- pt on chronic fenofibrate and testosterone but denies any other new medications
no noted hypotension but did have fall prior to last admission to suggest hypotensive event
cont to trend LFT's
add INR and D bili
LFT's were elevated in 2022 but normal on 08/2024
hepatits neg, ceruloplasmin, Transferrin and AMA pending
US with fatty liver
if any abdominal pain or further rise in LFT's consider MRI
maintain adequate perfusion
cont abx per PNA
optimize glucose control with marked elevated hbg A1C and cont steroids with hx adrenal insufficiency
will review with Dr. Burt for other recommendations
-
-
Thank you for consultation and allowing me to participate in the patient's care. Please call the postal service sectional center manager GI physician during the after hours with any questions or concerns.
--- NOTE | 2025-06-14 11:32 | CM ---
Initial assessment completed with patient and father. Patient was at from 06/10/25 to 06/13/25. Patient was discharged on 06/13/25 but when came to transport he did not look well and appeared with a change in MS from his norm. Patient was
readmitted to IMU. Patient lives with his and 2 children, boy 2 y/o and a girl 6 y/o in a 2 story home plus basement with B/B on 2nd and 1/2 bath on , 1 step to enter. 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 No DME. No in-home services. No HC POA. PCP is Dr. Mejia and Pharmacy is [facility] in [place]. Discharge POC: Home with no needs.
--- NOTE | 2025-06-14 12:08 | PN.DE.MGMTRT ---
Insulin Management
- -
06/14/2025 Diabetes Management Consult
Patient discharged 06/13, readmitted in 2 hours with change in mental status, R upper lobe pneumonia. 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 Was discharged
on insulin regimen but returned before starting any home insulin. Prior to 8:30 admission was taking 1000 mg metformin BID. A1C on admission 11.6%, cr .8, eGFR > 60.
Patient is awake alert and oriented able to discuss diabetes care, Father at bedside very supportive and involved in care. Father asking many questions about insulin and if patient will have to take it forever. Reassured patient should follow with
lacing presser he sees already for other endocrine issues, testing glucose and reporting to endocrine for further adjustments to regimen after discharge.
He was provided with a new meter, Contour, yesterday, RX for test strips and lancets are in ambulatory orders.
Patient received no lantus @ hs, fasting glucose today 228. Patient received AC novolog 8 units AC with additional 2 units corrective insulin. Lantus has been ordered for hs tonight, lantus 20 units.
Patient to begin self injections of insulin.
Discussed with nurse.
Will follow.
Diabetes History
- -
Type of Diabetes: 2 requiring insulin
Pre-Admission Diabetes Regimen
06/13/25 06/14/25
21:11 05:12
Creatinine 1.0 0.8
Insulin Pump Settings
IP Diabetes Regimen
06/13/25 06/13/25 06/14/25
20:57 21:11 05:12
Glucose 195 H 240 H
POC Glucose 243 H
06/14/25
08:00
Glucose
POC Glucose 228 H
Patient Education
--- NOTE | 2025-06-14 12:41 | CON.ID ---
Addendum entered and electronically signed by Gina Moseley MD 06/14/25 16:22:
I personally performed a history and physical exam of the patient and discussed management with the resident. I reviewed the resident's note and agree with the documented findings and plan of care HPI/CC.
# RUL CAP
# Recent URI/acute sinusitis
# Leukocytosis - on steroid
# Hyponatremia
# Adrenal insufficiency on chronic steroid, in crisis
# DM - uncontrolled
- Check urine legionella and urine strep pneumo antigens
- DC vancomycin and Zosyn
- Resume ceftriaxone 2g IV q24 and po Azithromycin
Original Note:
Consultation
-
Date/Time Consultation Requested: 06/14/2025 09:47
Date/Time Consultation Performed: 06/14/2025 12:20
Requesting Provider: Latrell Savage MD
Performing Provider: Yang Petersen MD ; Gina Moseley MD
Reason for Consultation: Pneumonia, adrenal insufficiency
Chief Complaint / Past History
Chief Complaint
Drowsiness and not feeling well
History of Present Illness
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
thyroid for thyroid cancer, recently in the hospital from 06/10-06/12 after a syncopal episode and fall and was found to have fever and adrenal crisis, dc on 06/13/25, brought back to the emergency on 06/13/2025 due to weakness and altered mental status.
Initially the patient was admitted following a fall/syncope and during that time per the family there were some sick contacts at home with upper respiratory infection. During that hospital stay there was also concern of adrenal crisis. He also
developed fever up to 102 on 06/10 however the workup including flu, blood culture, chest x-ray was negative at that time. His CK was elevated to 640, A1c was 11.6. He also had elevation of LFTs. Abdominal ultrasound from 06/12 noted hepatomegaly
with echogenicity in the liver compatible with underlying hepatocellular disease, which most commonly relates to fatty infiltration of the liver and negative hepatitis serology with intermediate hep B immunity. No antibiotics given last admission.
In the ER chest x-ray showed an opacity projecting over the lateral right upper lung. There was no pleural effusion or pneumothorax. CT chest was also done which showed right upper lobe pneumonia.Other pulmonary opacities suggesting pneumonia
and/or aspiration. And trace right pleural effusion.
Past History
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
hearing, gout, vitamin D deficiency, fatty liver)
Past Surgical History: Brain (x2)
Allergy History:
No Known Allergies Allergy (Verified 06/13/25 20:35)
Medications Reviewed: Yes
Current Antibiotics:
Zosyn and vancomycin
Social History
Tobacco: Non-Smoker
Alcohol: None
Drug: None
Personal:
Living: With Family
Family History
Family History: Not Pertinent
Review of Systems
Review of Systems
General: Negative Fever
Cardiovascular: Negative Chest Pain or Dyspnea
Respiratory: Negative Cough or Sputum Production
Genital / Urological: Negative Dysuria
Musculoskeletal: Negative Joint Pain
Neurological: Negative Headache
Vital Signs
Temp Pulse Resp BP Pulse Ox
99.6 F 77 19 100/73 92
06/14/25 07:45 06/14/25 09:26 06/14/25 09:26 06/14/25 09:26 06/14/25 09:40
Physical Exam
Physical Exam
Constitutional: Comfortable
Head: Normocephalic
Cardiovascular: Regular Rate and S1/S2
Pulmonary: Clear, Symmetric and Non Labored; Negative Wheezes, Rales, Rhonchi or Coarse
Neurological: Awake and Alert
Psychological: Calm
Lab / Diagnostic Study Results
06/14/25 05:12
06/14/25 05:12
Abs Immat Gran (auto) 0.1 10^3/uL (0-0.05) H 06/13/25 21:11
Absolute Neuts (auto) 9.0 10^3/uL (1.4-6.5) H 06/13/25 21:11
Absolute Lymphs (auto) 1.1 10^3/uL (1.2-3.4) L 06/13/25 21:11
Absolute Monos (auto) 0.3 10^3/uL (0.1-0.6) 06/13/25 21:11
Absolute Basos (auto) 0.1 10^3/uL (0-0.2) 06/13/25 21:11
Immature Gran % 1.3 % (0-0.5) H 06/13/25 21:11
Neutrophils % 84.4 % (42.2-75.2) H 06/13/25 21:11
Lymphocytes % 10.6 % (20.5-51.1) L 06/13/25 21:11
Monocytes % 2.9 % (1.7-9.3) 06/13/25 21:11
Eosinophils % 0.3 % (0-6) 06/13/25 21:11
Basophils % 0.5 % (0-2) 06/13/25 21:11
Microbiology Results
Micro:
06/14/25 12:28 Blood Culture - Pending
Blood/Venous
06/14/25 05:12 Nasal Screen MRSA (PCR) - Final
Nose MRSA not detected - performed by PCR methodology.
CT of the head 06/13/25 shows no acute intracranial process but a small left frontal scalp soft tissue contusion.
Chest Xray 06/13/25: There is an opacity projecting over the lateral right upper lung. No pleural effusion or pneumothorax.
CT chest 06/13/25: Right upper lobe pneumonia.
Other pulmonary opacities suggesting pneumonia and/or aspiration. Imaging follow-up to resolution is recommended.
Trace right pleural effusion.
Assessment / Plan
# Right sided pneumonia
# Leukocytosis
# Adrenal insufficiency currently on IV hydrocortisone
# Transaminitis
- Pneumonia could be bacterial; there is a possibility that it was developing during the last admission however i do not believe it is hospital acquired pna
- Given the patient had a syncopal episode and was admitted after that on 06/10/2025 there is a possibility that this could be resolved or aspiration during the episode
- There was 1 episode of fever (102.1) on 06/10/2025
- Influenza and COVID-negative from 06/10/2025
Sputum cultures if able currently patient is not producing any sputum
Blood cultures pending; MRSA screen pending
Continue with abx; will treat as CAP.
Currently on empiric Zosyn and vancomycin. ; switch to ceftriaxone 2g q24 and azithromycin 500mg daily
[2025-06-14] MEDS: CALCIUM GLUCONATE 100 IV (12:44)
[2025-06-14] MEDS: NOVOLOG FLEXPEN-LOW RESISTANCE 4 UNITS SC (13:15)
[2025-06-14 13:24] LABS: Glucose - Point of Care 326 mg/dl (70-99)
[2025-06-14] MEDS: ZITHROMAX 500 MG PO (14:40)
[2025-06-14] MEDS: ROCEPHIN 2000 MG IV (14:40)
[2025-06-14] MEDS: STERILE WATER FOR INJECTION 20 ML IV (14:40)
--- NOTE | 2025-06-14 15:58 | CON.MD ---
Consultation - Medical
-
Víctor is a 40 y.o. 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 Follows
as an outpt with Dr. So Burns, pituitary specialist at [facility]. Has been taking testosterone replacement, LT4 137 mcg daily and HC 10 mg bid at home. He was admitted here at the end of May for syncope, fever, and adrenal crisis and readmitted a
few hours after discharge with AMS and weakness. He is now hemodynamically stable on stress dose IV steroids and being treated empirically for pneumonia. He denies nausea, dizziness and reports good appetite. I believe he may begin a steroid taper
going to 25 mg of hydrocortisone every 8 hours starting tonight, and then upon discharge would send him with PO hydrocortisone at twice his usual dose, or 20 mg bid for at least 3 days before returning to his usual regimen of 10 mg bid. With
secondary AI, he does not require mineralocorticoid therapy. Cortisol levels do not need to be drawn and are uninterpretable in this setting of ongoing treatment. Please advise if any questions, thanks.
[2025-06-14] MEDS: LOVENOX 40 MG SC (18:23)
[2025-06-14 18:34] LABS: Glucose - Point of Care 226 mg/dl (70-99)
--- NOTE | 2025-06-14 20:47 | PTCARENOTE ---
Assumed care of pt from dayshift. Pt AAOx3, Deaf L ear, [employer] R, hearing aid in R ear. NSR on tele, vss. on 2L NC p ox 95-96%. satting only 90-91% on RA. Lungs diminished at bases, denies cough. Denies c/o pain. OOB as taurus with standby assist.
voiding in urinal. Call yang within reach.
[2025-06-14] MEDS: LANTUS 0.2 UNITS SC (21:36)
[2025-06-14 21:42] LABS: Glucose - Point of Care 213 mg/dl (70-99)
[2025-06-15] VITALS (10 sets, daily range): BP systolic 97–119; BP diastolic 62–82; BMI 28.1
[2025-06-15] MEDS: SYNTHROID 137 MCG PO (05:16)
[2025-06-15 06:06] LABS: INR 1.14; PT 15.1 Sec (11.4-14.6)
[2025-06-15 06:10] LABS: Hematocrit 29.7 % (39.0-52.0); Hemoglobin 10.3 g/dL (13.0-18.0); Mean Corp Hgb Conc. 34.7 g/dL (33.0-37.0); Mean Corpuscular Volume 79.0 fL (80.0-94.0); Platelet Count 247 10^3/uL (130-400); Red Cell Dist. Width 13.5 % (11.5-14.5)
[2025-06-15 06:17] LABS: ALT (SGPT) 147 U/L (0-50); AST (SGOT) 65 U/L (17-59); Albumin 4.1 g/dl (3.5-5.0); Alkaline Phosphatase 130 U/L (38-126); Blood Urea Nitrogen 22 mg/dl (9-20); Calcium 8.2 mg/dl (8.4-10.2); Carbon Dioxide 30 mmol/L (22-30); Chloride 97 mmol/L (98-107); Estimated Creatinine Clearance > 125 ml/min; Glucose 224 mg/dl (70-99); Potassium 3.9 mmol/L (3.5-5.1); Sodium 135 mmol/L (135-145); Total Protein 7.1 g/dl (6.3-8.2); eGFR > 60.00
--- NOTE | 2025-06-15 07:40 | W.PN.HOSP.TC ---
Today's Communication/Plan
-
Pending MRI with and without contrast. Nurse kindly inquired about when his MRI is scheduled. It might be tomorrow, so patient was allowed to eat breakfast. Nurse kindly plans to inquire about when his MRI is scheduled before each of his meals,
check if he is allowed to eat that meal.
Assessment / Plan
Assessment / Plan
IMPRESSION:
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
admission with syncopal episode found to be in adrenal insufficiency and possible seizure status post discharge this evening will presents back to the hospital for ongoing weakness, lethargy and somnolence at the time of discharge. Here in the
emergency department he is hemodynamically stable but does appear to have respiratory depression with some CO2 retention. His labs are otherwise unremarkable except for a sodium of 130. Chest x-ray shows a new opacification of the right lung. His
infectious workup over the last 2 days have been negative. Serum glucose measurements without hypoglycemia or DKA. Now on bipap for somnolence
PLAN:
#PNA - AMS likely from hypoxemia or presyncopal (adrenal insufficiency)
No recurrence of fever since 06/10. Bcx ngtd. Viral studies neg. Initial CXR was normal. Now CXR with a new opacity over lateral right upper lung. CT chest confirming dense RUL lung consolidation with multifocal infiltrates suggestive of
multifocal pna.
- ID consult: IV ceftriaxone/doxycycline. Plan to transition to oral amoxicillin from IV ceftriaxone at discharge for a total 7 days of antibiotics
MRSA swab: negative. Urine cx negative for strep pneumo and legionella
- Weaned to room air 06/15/25
- vbg, ammonia level, follow prior cultures
MRI brain: Fahr's disease (calcifications)
- neurology consulted. Appreciated recs
- syncope w/u essentially completed with normal Echo
- pulm consult: Pulmonary/radiographic follow-up of infiltrate. Discussed with patient and father and information left in chart
- GI consult
# Secondary adrenal insufficiency - Random Serum cortisol 12.1, increased from prior but still low given stress. Somnolent but HD stable. Na 130.
- tapering solu-cortef 50 q 8. Will taper to 25 mg hydrocortisone IV every 8 hours and then 20 mg p.o. every morning +10 mg p.o. every afternoon, as blood pressures demonstrate stability at each doses change.
- endocrinology consult: upon discharge would send him with PO hydrocortisone at twice his usual dose, or 20 mg bid for at least 3 days before returning to his usual regimen of 10 mg bid.
� Considering midodrine
#DM II
Metformin. lantus 20 hs, premeal aspart 8 units
- sliding scale insulin moderate resistance
#Elevated LFTs - Fatty liver on U/S. Negative viral hepatitis w/u
Elevated during previous admission. LFTs decreasing overall
- Abdominal MRI. May be 06/16/2025
- given age, getting additional screening serologies including ceruloplasmin, transferrin, and ama
- non-emergent outpatient liver eval for MASLD
#Hypothyroid
- continue his levothyroxine
DVT PPX - lovenox sq
Code status - Full code
Anticipated Discharge: 24 - 48 hours
Subjective/Interval History
-
Date of Service: June 15, 2025
No acute events overnight. Patient had no complaints, other than facetiously saying ' wanting to go home'. Spoke with his father over the phone as well.
Weaned NC from 5 to 3 L during conversation and exam. Relayed information to nurse. Nurse states she will continue to try to wean.
Objective Data
-
Labs:
Laboratory Results
06/15/25
05:34
WBC 11.6 H
Hgb 10.3 L
Hct 29.7 L
Plt Count 247
PT 15.1 H
INR 1.14
Sodium 135
Potassium 3.9
Chloride 97 L
Carbon Dioxide 30
BUN 22 H
Creatinine 0.7
Glucose 224 H
Calcium 8.2 L
Total Bilirubin 1.0 D
AST 65 H
ALT 147 H
Alkaline Phosphatase 130 H
Vital Signs:
Vital Signs
Temp Pulse Resp BP Pulse Ox
97.8 F 63 13 106/82 94
06/15/25 03:00 06/15/25 06:15 06/15/25 06:15 06/15/25 06:03 06/15/25 06:15
I&O
06/14/25 06/15/25 06/16/25
06:59 06:59 06:59
Intake Total 480 / 480
Output Total 1999 / 1999
Balance -1520 / -1520
Review of Systems
-
History Source: Patient
Constitutional: Reports No Symptoms
EENT: Reports No Symptoms Reported
Respiratory: Reports No Symptoms
Cardiac: Reports No Symptoms
Abdomen/GI: Reports No Symptoms
Genitourinary: Reports No Symptoms
Musculoskeletal: Reports No Symptoms
Skin: Reports No Symptoms
Neuro: Reports No Symptoms
Physical Exam
-
General: Well Developed, Well Nourished, No Apparent Distress and Comfortable
HEENT: Normocephalic, Atraumatic, Moist Mucous Membranes, Anicteric, Nose Appears Normal and Ears Appear Normal
Respiratory: Clear to Auscultation
Cardiac: Regular Rhythm and S1/S2
GI: Soft, Nontender, Nondistended and Normal Bowel Sounds
Musculoskeletal: No Clubbing, No Cyanosis and No Edema
Skin: Warm and Dry
Neuro: Awake, Alert and Oriented
Psych: Calm
Data Reviewed
-
Diagnostic Radiology: Report Reviewed by me
CT Scan: Report Reviewed by me
Ultrasound: Report Reviewed by me
MRI: Report Reviewed by me
Medical Tests (Nuc Med, Echo etc): Report Reviewed by me
Labs: Labs Reviewed by me
Old Records: Reviewed
--- NOTE | 2025-06-15 08:27 | PN.DE.MGMTRT ---
Insulin Management
- -
06/15/2025 Diabetes Management Consult Follow up
Patient discharged 06/13, readmitted in 2 hours with change in mental status, R upper lobe pneumonia. 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 Was discharged
on insulin regimen but returned before starting any home insulin. Prior to 8:30 admission was taking 1000 mg metformin BID. A1C on admission 11.6%, cr .8, eGFR > 60.
Patient is awake alert and oriented able to discuss diabetes care. He is NPo this AM for MRI of abdomen.
Patient received 20 units lantus @ hs, fasting glucose today 224. Patient received AC novolog 8 units AC with additional 2 units corrective insulin. Will increase HS lantus to 25 units tonight and increase AC novolog to 12 units. Per
Diehl may begin steroid taper.
Patient to begin self injections of insulin.
He was provided with a new meter, Contour, yesterday, RX for test strips and lancets are in ambulatory orders.
Discussed with nurse.
Will follow.
Diabetes History
- -
Type of Diabetes: 2 requiring insulin
Pre-Admission Diabetes Regimen
06/15/25
05:34
Creatinine 0.7
Insulin Pump Settings
IP Diabetes Regimen
06/14/25 06/14/25 06/14/25
13:14 18:21 21:30
Glucose
POC Glucose 326 H 226 H 213 H
06/15/25
05:34
Glucose 224 H
POC Glucose
Patient Education
[2025-06-15 08:42] LABS: Nucleated Red Blood Cells % 0 % (-)
--- NOTE | 2025-06-15 08:44 | W.PN.ID1 ---
Addendum entered and electronically signed by Gina Moseley MD 06/15/25 12:16:
I saw and evaluated the patient. I reviewed the resident�s note and agree with findings and plan as documented in the resident�s note.
Pt feels better. Ambulated without oxygen.
# RUL CAP
# Recent URI/acute sinusitis
# Leukocytosis - on steroid
# Adrenal insufficiency on chronic steroid, s/p crisis
# DM - uncontrolled
- Urine legionella and urine strep pneumo antigens negative (poor sensitivity tests)
- Continue ceftriaxone 2g IV q24 and po Azithromycin
- At time of discharge, transition to amoxicillin 1g po q8h and azithromycin 500mg po daily through 06/20/25
Original Note:
Date of Service
Date of Service: June 15, 2025
AFVSS. Offers no new complaints.
Today's Communication
Continue ceftriaxone and azithromycin for now/ transition to amox 1 g q8 and azithro 500mg po q24 upon dc to complete total of 7 days
Follow-up on blood cultures
Repeat CBC in the morning
Assessment / Plan
# Right sided pneumonia; RUL
# Leukocytosis; slightly increased
# Adrenal insufficiency currently on IV hydrocortisone
# Transaminitis; improving
# Recent URI/acute sinusitis
# Hyponatremia- resolved
# Diabetes mellitus: Uncontrolled
- Unlikely that pneumonia is hospital acquired
- Given the patient had a syncopal episode and was admitted after that on 06/10/2025 there is a possibility that this could be aspiration during the episode
- There was 1 episode of fever (102.1) on 06/10/2025
- Influenza and COVID-negative from 06/10/2025
- Urine Legionella and urine strep pneumo antigens negative
- MRSA negative
Sputum cultures if able currently patient is not producing any sputum
Blood cultures pending;
Continue with current abx; will treat as CAP.
Currently on IV ceftriaxone 2g q24 and azithromycin 500mg daily can switch to amoxicillin 1g q8 and continue azithro 500mg q24 to complete total 7 days of abx.
ok for dc from ID stand point.
Chief Complaint
-: Pneumonia
Subjective / Review of Systems
Review of Systems: No Fever, No Chills, No Headache, No Swollen Lymph Nodes, No Cough, No Chest Pain, No Abdominal Pain, No Nausea, No Vomiting, No Diarrhea, No Dysuria, No Joint Pain and No Skin Rash
Vital Signs / Physical Exam
Vital Signs
Vital Signs
Temp Pulse Resp BP Pulse Ox
97.8 F 63 13 106/82 94
06/15/25 03:00 06/15/25 06:15 06/15/25 06:15 06/15/25 06:03 06/15/25 06:15
Physical Exam
Constitutional: No Acute Distress and Comfortable
Cardiovascular: Regular Rate and S1/S2
Pulmonary: Clear, Symmetric and Non Labored; Negative Wheezes or Rales
Gastrointestinal: Soft and Non Tender
Skin: Warm
Neurological: Awake, Alert and Oriented
Psychological: Calm
Objective Data
Lab Data
Lab Results
06/15/25 05:34
06/15/25 05:34
PT 15.1 Sec (11.4-14.6) H 06/15/25 05:34
INR 1.14 06/15/25 05:34
Estimated Creat Clear > 125 ml/min 06/15/25 05:34
Total Bilirubin 1.0 mg/dl (0.2-1.3) D 06/15/25 05:34
AST 65 U/L (17-59) H 06/15/25 05:34
ALT 147 U/L (0-50) H 06/15/25 05:34
Alkaline Phosphatase 130 U/L (38-126) H 06/15/25 05:34
Most recent labs reviewed.
Microbiology: Report Reviewed
Micro Results:
06/14/25 16:53 Legionella Urinary Antigen - Final
Urine Negative for Legionella pneumophila Serogroup 1 antigen.
A negative result does not rule out the possiblity of
Legionella infection due to other serogroups or species of
Legionella. Clinical correlation is recommended.
06/14/25 16:53 Streptococcus pneumoniae Antigen (M - Final
Urine Negative for Streptococcus pneumoniae antigen.
A negative result does not exclude infection with
Streptococcus pneumoniae. Clinical correlation is
recommended.
06/14/25 13:30 Blood Culture - Pending
Blood/Venous
06/14/25 12:28 Blood Culture - Pending
Blood/Venous
06/14/25 05:12 Nasal Screen MRSA (PCR) - Final
Nose MRSA not detected - performed by PCR methodology.
CT of the head 06/13/25 shows no acute intracranial process but a small left frontal scalp soft tissue contusion.
Chest Xray 06/13/25: There is an opacity projecting over the lateral right upper lung. No pleural effusion or pneumothorax.
CT chest 06/13/25: Right upper lobe pneumonia.
Other pulmonary opacities suggesting pneumonia and/or aspiration. Imaging follow-up to resolution is recommended.
Trace right pleural effusion.
--- NOTE | 2025-06-15 08:54 | CON.NEURO4 ---
Addendum entered and electronically signed by Forrest Rouse MD 06/15/25 13:36:
Studies reviewed.
I have personally examined the patient. I reviewed and agree with the DISINTEGRATOR FEEDER's Note.
My addenda:
Awake, alert, interactive. No acute distress.
Speech intact.
Follows 2-step requests w/o difficulty. No tremor.
Extra-ocular movements grossly intact.
Facial movements full and symmetric. Hearing reduced to normal conversational volume.
Normal UE movements bilaterally.
Neck: full ROM.
Chest: no dyspnea
Heart: no JVD
Ext: (-) Clubbing, (-) Cyanosis, (-) Edema
IMPRESSIONS/RECOMMENDATIONS:
Abrupt onset of change in mental status.
The patient's difficulties are not related to his prior history of medulloblastoma with resection. Instead they are related to adrenal insufficiency and profound orthostatic hypotension demonstrated during his last hospitalization
Provide fludrocortisone 0.1 mg daily
Start use of abdominal binder
No indication for antiseizure medication at this time
D/W patient / family
All questions answered.
Will continue to follow as needed.
Original Note:
Consultation - Neurology 4
-
CONSULTING PHYSICIAN: Forrest Rouse MD
REFERRING PHYSICIAN: Hospitalists/Dr. Savage
DICTATED BY: TIFFANY Arenas
DATE/TIME OF REQUEST: 06/15/25
DATE/TIME OF CONSULTATION: 06/15/25
Reason for Consultation: Syncope, altered mental status
History of Present Illness:
This is a 40-year-old left-handed male who has presented to the hospital on 06/14/25 with report of syncope/altered mental status. Patient was hospitalized at [facility] from 06/10/25-06/13/25 with report of fever, URI symptoms, and collapse. He as evaluated
by Neurology at that time.
From previous evaluation by Neurology Dr. Smith on 06/11/25:
'40-year-old with syncope. Patient has been congested with URI symptoms and cough for the past couple of days. He also had some nosebleed around 5 AM which lasted for 2 minutes. When he went back to sleep later in the morning he came downstairs
and was fine. Then he went upstairs to get laundry and then she heard a thud. She went upstairs and he seemed to be passed out on the bathroom floor. She had to shake him for 20 to 30 seconds before he woke up he was confused and disoriented for
a few minutes. By the time EMS came he was oriented and back to baseline
has had previous similar events, all in the setting of acute illness.
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 Therefore I recommended starting Keppra, but they are not interested which is reasonable since all of his sz were provoked in the setting of
acute/febrile illness which certainly lowers the seizure threshold.
DL-13 sent to [facility] online indicating provoked seizure and no action taken on his drivers license
check EEG which may be done as an outpatient'
He was treated for an adrenal crisis and had significant improvement in his mental status prior to hospital discharge on 06/13/25. He was okay getting into the transport wheelchair but upon getting to his car he was unable to stand up, was drowsy,
and possibly had a left facial droop, prompting them to bring him back to the ER for evaluation where he was placed on bipap. CT head was negative for any acute findings. CT chest demonstrated a RUL pneumonia. Patient reports that he is currently at
his baseline. He denies any headache, tongue biting, bowel/bladder incontinence, dizziness, vision changes, speech/swallow difficultly, numbness, and weakness. His family had concern for seizures producing his altered mental status, prompting
Neurology re-evaluation.
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
hypothyroidism
Surgical History: Medulloblastoma resection age 1
Family History: Reviewed and noncontributory.
Social History: Denies tobacco, alcohol, and ilicit drug use.
Allergies: No known allergies.
Home Medications: See below.
Review of Symptoms:
Patient denies any fever, headache, chest pain, shortness of breath, GI or symptoms.
�Per the HPI.�All systems are reviewed negative except above.
Physical Exam:
The patient is afebrile, abdomen is nondistended, breathing is unlabored, skin is warm and dry, no edema. White patchy areas in back of mouth/throat.
Neurologic Examination:
The patient is awake, alert and oriented x 3. He is able to follow commands and answer questions appropriately. There is no aphasia. Speech is hypernasality. On cranial nerve assessment, pupils are 3 mm bilateral, round and reactive to light and
accommodation. Visual garduno are full. 1+ left eye esotropia. Extraocular movements are intact. Facial sensations are intact and bilaterally symmetrical, there is no facial asymmetry. Hearing is diminished bilaterally to normal conversation volume.
Tongue palate and uvula are midline. Sternocleidomastoid strengths are full bilaterally. Motor strengths are 5/5 bilateral upper and lower extremities on medical research [place] scale. There is no drift or involuntary movement noted. Deep tendon
reflexes are 2+ bilateral upper and lower extremities and Babinski is absent bilaterally. There was no extinction noted on double simultaneous stimulation. Coordination is intact by finger to nose bilaterally.
Lab Results: See below.
Neuro Imaging:
1. MRI brain 06/14/25: No acute intracranial abnormality noted. 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 There are mild/moderate
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 Likely acute
pansinusitis.
2. EEG 06/15/25: Minimally abnormal EEG for age due to diffuse bihemispheric slowing
Differentials for the patient's presentation include:
1. Change in mental status and prior syncopal events likely due to orthostasis and metabolic disturbance and in the setting of infection.
2. Orthostatic vital signs on 06/13/25 were significantly positive.
3. Very low concern for seizure.
Patient has the following risk factors for their symptoms: Hx brain tumor rxn/radiation, pneumonia, adrenal insufficiency
Recommendations:
-Start fludrocortisone 0.1mg daily.
-Check orthostatic vital signs BID.
-Stay hydrated, slow position changes.
-Consider an abdominal binder when OOB.
-Supportive care.
-Do not see a role for further neurological imaging.
Discussed patient care with: Dr. Rouse, the patient, patient's father via cell phone
Vital Signs and Labs
-
Vital Signs and Labs:
Vital Signs
Temp Pulse Resp BP Pulse Ox
97.8 F 63 13 106/82 94
06/15/25 03:00 06/15/25 06:15 06/15/25 06:15 06/15/25 06:03 06/15/25 06:15
Lab Results
06/15/25 05:34
06/15/25 05:34
PT 15.1 Sec (11.4-14.6) H 06/15/25 05:34
INR 1.14 06/15/25 05:34
Sodium 135 mmol/L (135-145) 06/15/25 05:34
Potassium 3.9 mmol/L (3.5-5.1) 06/15/25 05:34
BUN 22 mg/dl (9-20) H 06/15/25 05:34
Glucose 224 mg/dl (70-99) H 06/15/25 05:34
Calcium 8.2 mg/dl (8.4-10.2) L 06/15/25 05:34
Medications
-
Active Medications
Generic Name Dose Route Start Last Admin
Trade Name Freq PRN Reason Stop Dose Admin
Acetaminophen 650 mg 06/14/25 01:14
Acetaminophen 325 Mg Tablet PO 07/12/25 01:13
Q4HPRN PRN
mild pain/ELI/temp> 100.4F
Acetaminophen 650 mg 06/14/25 01:14
Acetaminophen 650 Mg Rectal Suppository RECTAL 07/12/25 01:13
Q4HPRN PRN
mild pain/ELI/temp> 100.4F
Albuterol/Ipratropium 3 ml 06/14/25 01:14
Ipratropium 0.5/Albuterol 3 Mg (3 Ml Ampul) INH
R Q4HPRN PRN
shortness of breath
Protocol
Aspirin 81 mg 06/14/25 08:00 06/15/25 09:18
Aspirin 81 Mg (Enteric Coated) Tablet PO 07/12/25 07:59 81 mg
DAILY RADHA Administration
Azithromycin 500 mg 06/14/25 14:00 06/15/25 09:18
Azithromycin 250 Mg Tablet PO 500 mg
DAILY RADHA Administration
Bisacodyl 10 mg 06/14/25 01:14
Bisacodyl 10 Mg Rectal Suppository RECTAL 07/12/25 01:13
[id number] PRN
constipation
Ceftriaxone Sodium 2,000 mg 06/14/25 14:00 06/14/25 14:40
Ceftriaxone 2,000 Mg/20 Ml Vial IV 2,000 mg
Q24H RADHA Administration
Enoxaparin Sodium 40 mg 06/14/25 18:00 06/14/25 18:23
Enoxaparin Sodium 40 Mg/0.4 Ml Syringe SC 07/12/25 17:59 40 mg
QPM RADHA Administration
Fenofibrate 145 mg 06/14/25 08:00 06/15/25 09:18
Fenofibrate 145 Mg Tablet PO 07/12/25 07:59 145 mg
DAILY RADHA Administration
Fludrocortisone Acetate 0.1 mg 06/15/25 14:00
Fludrocortisone Acetate 0.1 Mg Tablet PO 07/13/25 13:59
DAILY RADHA
Hydrocortisone Sodium Succinate 25 mg 06/15/25 12:32
Hydrocortisone Sodium Succinate 100 Mg/2 Ml Vial IV 07/12/25 04:59
Q8 RADHA
Insulin Glargine 25 units/ 0.25 mls @ 0 mls/hr 06/15/25 22:00
Device SC 07/13/25 21:59
HS RADHA
As Directed
Insulin Aspart 0 units 06/14/25 07:30 06/15/25 09:17
Insulin Aspart Low Resistance 300 Units/3 Ml Pen.Injctr SC 07/12/25 07:29 3 units
AC RADHA Administration
Protocol
Insulin Aspart 12 units 06/15/25 08:22
Insulin Aspart (Novolog) 100 Units/Ml 3 Ml Flexpen SC 07/13/25 07:29
AC RADHA
Levothyroxine Sodium 137 mcg 06/14/25 06:00 06/15/25 05:16
Levothyroxine 137 Mcg Tablet PO 07/12/25 05:59 137 mcg
DAILY @ 0600 RADHA Administration
Non-Formulary Medication 20 mg 06/14/25 22:00
Testosterone TOPICAL 07/12/25 21:59
HS RADHA
Ondansetron HCl 4 mg 06/14/25 01:14
Ondansetron 4 Mg/2 Ml Vial IV 07/12/25 01:13
Q6HPRN PRN
nausea and vomiting
Polyethylene Glycol 17 grams 06/14/25 01:14
Polyethylene Glycol Powder 17 Grams Packet PO 07/12/25 01:13
DAILYPRN PRN
constipation
Senna/Docusate Sodium 1 tablet 06/14/25 01:14
Docusate W/Senna (Delia-Colace) Tablet PO 07/12/25 01:13
BIDPRN PRN
constipation
Sterile Water 20 ml 06/14/25 14:00 06/14/25 14:40
Sterile Water For Injection 20 Ml Vial IV 07/12/25 13:59 20 ml
Q24H RADHA Administration
Home Medications
�Medication �Instructions �Recorded
fenofibrate 160 mg tablet 160 mg PO DAILY High cholesterol 12/06/22
icosapent ethyl 1 gram capsule 2 g PO BID High cholesterol 12/06/22
(Vascepa)
levothyroxine 137 mcg tablet 137 mcg PO DAILY Thyroid 12/06/22
metformin 1,000 mg tablet 1,000 mg PO DAILY Diabetes 12/06/22
testosterone 20 mg topical HS Hormonal Agent 06/10/25
hydrocortisone 5 mg tablet 5 mg PO QPM #30 tabs 06/12/25
aspirin 81 mg tablet 81 mg PO DAILY Blood Clot 06/13/25
Prevention/Tx
hydrocortisone 10 mg tablet 10 mg PO DAILY@1500 #30 tabs 06/13/25
hydrocortisone 20 mg tablet 20 mg PO DAILY #30 tabs 06/13/25
insulin aspart U-100 100 unit/mL 8 unit (0.08 mL) SC AC #5 ea 06/13/25
(3 mL) subcutaneous pen (Novolog
FlexPen U-100 Insulin aspart)
insulin glargine 100 unit/mL (3 20 unit (0.2 mL) SC HS #5 ea 06/13/25
mL) subcutaneous pen (Lantus
Solostar U-100 Insulin)
pen needle, diabetic 32 gauge x #100 ea 06/13/25
532'
blood sugar diagnostic (Contour ##200 06/14/25
Next Test Strips)
lancets 21 gauge (Color Lancets) ##200 06/14/25
--- NOTE | 2025-06-15 09:11 | EEG.RPT ---
Electroencephalogram Report
Recording
Date of EE06/15/25
Type of EEG: Routine
Length of EEG recordin minutes
Done with Video Recording: Yes
Patient Status: Inpatient
Recording Conditions: Awake and Drowsy
Hyperventilation Performed: No
Photic Stimulation Performed: Yes
Report
LESS THAN 1 HOUR EEG REPORT
LESS THAN 1 HOUR EEG INTERPRETATION:
Minimally abnormal EEG for age due to diffuse bihemispheric slowing
CLINICAL CORRELATION:
This study was suggestive of minimal diffuse cortical dysfunction without focal abnormality. No seizures were recorded.
Clinical correlation is advised.
METHODS:
A 21 channel digitized electroencephalogram (EEG) was performed at the bedside. The 10/20 international system of electrode placement was used with ECG and lateral/vertical eye movements recorded. Persyst QEEG monitoring was performed.
QUALITY OF STUDY:
Good
ELECTROENCEPHALOGRAPHER IMPRESSION(S):
Background
There was a low�medium amplitude fairly well organized anterior-posterior voltage gradient of theta, rarely alpha frequency
There were no significant asymmetries of background activity noted.
Sleep
Drowsiness present
Photic Stimulation
Failed to activate the record.
ECG
Normal sinus rhythm
[2025-06-15] MEDS: NOVOLOG FLEXPEN-LOW RESISTANCE 3 UNITS SC (09:17)
[2025-06-15] MEDS: ASPIR LOW (ENTERIC COATED) 81 MG PO (09:18)
[2025-06-15] MEDS: SOLU-CORTEF 50 MG IV (09:18)
[2025-06-15] MEDS: TRICOR 145 MG PO (09:18)
[2025-06-15] MEDS: ZITHROMAX 500 MG PO (09:18)
[2025-06-15 09:27] LABS: Glucose - Point of Care 258 mg/dl (70-99)
--- NOTE | 2025-06-15 09:54 | W.PN.PUL3 ---
Today's Communication / Plan
-
Cont. ABX
Follow cultures
Oxygen assessment, hopefully can wean off.
Will follow
Assessment
-
40-year-old man with history of adrenal insufficiency, recent discharge from the hospital 06/12/2025 after being evaluated for syncopal/seizure episode associated with upper respiratory infection. He was observed in the hospital for about 48 hours
and did not have any fevers, chest x-ray was negative, cultures were negative. Patient was discharged and immediately return home with extreme weakness, sleepiness, left facial droop. Change in mental status. Brought back for evaluation. Repeat
chest x-ray demonstrated right upper lobe infiltrate. CT chest confirmed right upper lobe abnormality-we were consulted for evaluation of abnormal CT chest.
Right upper lobe pneumonia.
Chest x-ray 06/13/2025: Reviewed-right upper lobe pleural-based infiltrate.
CT chest reviewed: 06/13/2025 right upper lobe dense consolidation, bilateral trace pleural effusions, bibasilar opacities suggestive of subsegmental atelectasis.
Hypoxemic respiratory insufficiency secondary to above-currently on 4 L.
ABG VBG 06/14/2025: 7.37/54/142. Does not suggest decompensated hypercapnia.
Low-grade fever
Leukocytosis
Suspected adrenal crisis secondary to above.
Transaminitis-prior right upper ultrasound with fatty liver changes.
Anemia
Conditions present prior admission:
History of adrenal insufficiency-hypopituitarism.
Type 2 diabetes
History of thyroidectomy for thyroid cancer, with subsequent hypothyroidism
Hard of hearing
History of medulloblastoma-status postsurgery/radiation and chemotherapy at age 1.
Transaminitis: Hepatomegaly-likely fatty liver disease.
Assessment and plan:
Imaging compatible with pneumonia-possibly bacterial.
Unclear if these was evolving During last admission versus this was an aspiration event after a syncopal episode.
Multiple x-rays reviewed.
Chest x-ray from 06/10/2025 when he was admitted to the hospital negative for infiltrate.
Current imaging of the chest with right upper lobe dense infiltrate as well as trace bilateral pleural effusion with subsegmental atelectasis.
-
Stable overnight.
ON low rate supplemental oxygen - 2 L and pulse ox 96%--> will obtain home oxygen assessment - order placed
-
Sputum culture if able-currently not producing.
Blood cultures- neg
Legionella and strep Ag negative.
ID consulted - ABX adjusted to Ceftriaxone and Azithro.
MRSA screening negative.
Blood cultures from 06/10/2025 were negative.
Blood cultures 06/14/2025 - pending.
Sputum culture if able.
Influenza screening - 06/10/2025
COVID-negative 06/10/2025
-
I agree with therapy for adrenal insufficiency with IV hydrocortisone as you are-explained to patient and father that this is likely reason for his weakness in the setting of infection.
Endocrine following.
-
Encouraged incentive spirometry-there is bibasilar subsegmental atelectasis
Lungs relatively clear.
Increase activity as able
-
Patient denies history of pulmonary disease.
-
Increased LFTs: Right upper quadrant ultrasound suggestive of fatty liver
Improving 06/15/2025
GI has been consulted
Hepatitis panel negative
-
Physical therapy/Occupational Therapy as tolerrated.
Aspiration precautions
Had a limb elevation
-
Uncontrolled diabetes:
Hyperglycemia: Insulin subcu
Management per primary team
-
DVT prophylaxis-Lovenox
-
Dr. Castano updated father at the bedside, reviewed images with him.
Discussed with Dr. Savage as well- 06/14/2025
-
Hopefully dc in next 24 if cultures resulted and patient continues to improve.
Recommend pulmonary follow up- needs radiographic follow up of infiltrate- this was discussed with patient and father by Dr. Castano, information will be left on chart.
Data reviewed:
Echocardiogram 06/13/2025:
1. No biventricular size and systolic function.
2. No signficant valve disease.
3. No prior study available for comparison.
-
CT chest 06/13/2025:
No axillary, mediastinal, or hilar lymphadenopathy.
The heart is normal in size. No pericardial effusion. No coronary artery calcifications.
LUNGS: Right upper lobe consolidative opacity with air bronchograms, most compatible with pneumonia. Smaller scattered nodular opacities noted in both lungs with a few in the bilateral upper lobes. Peribronchial opacities in the basilar aspects of
the bilateral lower lobes, right greater than left. Trace right pleural effusion. No pneumothorax. The trachea and central airways are patent.
Subjective Data
-
Date of Service:
Date of Service: June 15, 2025
Chief Complaint: Pulmonary Follow Up (Pneumonia)
Subjective:
He offers no complaints.
Ambulated to restroom without symptoms.
He states that he feels ok, and ready to go home today.
Afebrile overnight.
Review of Systems
Cardiopulmonary: Dyspnea (n), Dyspnea on Exertion, Cough (n) and Sputum Production (n)
GI: Abdominal Pain (n) and Nausea (n)
Objective Data
Data Reviewed
Vital Signs / I&O / Oxygen:
Vital Signs
Temp Pulse Resp BP Pulse Ox
97.8 F 63 13 106/82 94
06/15/25 03:00 06/15/25 06:15 06/15/25 06:15 06/15/25 06:03 06/15/25 06:15
Intake and Output
06/14/25 06/15/25 06/16/25
06:59 06:59 06:59
Intake Total 480 / 480
Output Total 2000 / 1999
Balance -1520 / -1520
SaO2 94
Nasal Cannula flow liters per 2
minute
Physical Exam
General: Comfortable
HEENT: Normocephalic
Cardiovascular: S1-S2
Respiratory: Clear and Non-Labored Respirations
GI: Soft and Non Distended
Neurology: Awake, Oriented and No Motor Deficits
Skin: Warm
Labs/Micro/Reports
Lab Data
06/15/25 05:34
06/15/25 05:34
Laboratory Results
06/15/25
05:34
PT 15.1 H
INR 1.14
Microbiology
06/14/25 16:53 Urine Legionella Urinary Antigen - Final
Negative for Legionella pneumophila Serogroup 1 antigen.
A negative result does not rule out the possiblity of
Legionella infection due to other serogroups or species of
Legionella. Clinical correlation is recommended.
06/14/25 16:53 Urine Streptococcus pneumoniae Antigen (M - Final
Negative for Streptococcus pneumoniae antigen.
A negative result does not exclude infection with
Streptococcus pneumoniae. Clinical correlation is
recommended.
06/14/25 05:12 Nose Nasal Screen MRSA (PCR) - Final
MRSA not detected - performed by PCR methodology.
--- NOTE | 2025-06-15 10:35 | PN.CDI ---
CDI
- -
CDI:
Physician Documentation Request
Admit Date: 06/13/25 22:59
Dear Doctor Thuy,
Clinical Indicators:
Patient admitted with pneumonia and acute metabolic encephalopathy;PMH includes adrenal insufficiency, home meds include hydrocortisone.
06/14 PN, 'Acute hypoxemic respiratory failure due to PNA:-acute metabolic encephalopathy on admission...Elevated LFTs:-likely related to infection'
HR/RR trend on admission:
06/13/25
20:48 06/13/25
21:00 06/13/25
21:30
Pulse 108 106 103
Resp Rate 25 25 26
06/13/25
22:00 06/13/25
22:30 06/13/25
23:00
Pulse 105 104 99
Resp Rate 27 23 21
Please clarify which of the following most accurately describes the status of the patient's infection:
Severe Sepsis, POA
- Sepsis with associated acute organ dysfunction, such as respiratory failure, metabolic encephalopathy
- Documentation should indicate the association between the sepsis and the organ dysfunction
Sepsis, POA
- Systemic manifestations of infection, with 2 or more SIRS criteria which include:
- Fever >100.9 degrees F or hypothermia < 96.8 degrees F
- Leukocytosis - WBC > 12,000 or leukopenia - WBC < 4,000 or > 10% bands
- Tachycardia > 90 beats per minute
- Tachypnea - RR > 20 breaths per minute or PaCO2 , 32mmHg
Source: Merck Manual 2013
Pneumonia Only, Without Systemic Illness
Other, please specify
Use of terms such as suspected, likely, concern for, or probable (associated with a specific diagnosis that is being evaluated, monitored, or treated as if it exists) are acceptable and can be coded in the inpatient setting, when documented at the
time of discharge.
Thank you,
EMMA Gonzalez RN
CDI Specialist
available via tiger text
Please use your independent medical judgment in providing your response.
--- NOTE | 2025-06-15 11:06 | W.PN.UPDATE ---
Update Note
Progress Note Update
I saw and evaluated the patient. I reviewed the resident�s note and agree with findings and plan as documented in the resident�s note.
Denies CP/SOB. States he feels completely better.
Gen: NAD, Awake and alert
Eyes: EOMI, PERRLA, no scleral icterus.
Neck: supple.
CV: RRR, +S1/S2, no m/r/g.
Resp: CTAB
Abd: +BS, soft, NT, ND
Skin: No rashes.
Neuro: CN 2-12 intact, non-focal.
Psych: Normal mood and affect.
CXR: There is a new opacity projecting of the lateral right upper lung, possibly overlying soft tissue although pneumonia is possible. Consider dedicated CT chest for further evaluation.
CT chest: Right upper lobe pneumonia. Other pulmonary opacities suggesting pneumonia and/or aspiration. Imaging follow-up to resolution is recommended. Trace right pleural effusion.
MRI brain: No acute intracranial abnormality noted. 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 There are mild/moderate periventricular and
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 Likely acute pansinusitis.
Acute hypoxemic respiratory failure due to PNA:
-acute metabolic encephalopathy on admission
-in the setting of adrenal insufficiency, currently on stress dose steroids
-BCxs from 06/10/25 NGTD, COVID/Flu 06/10/25 NEG
-minimal leukocytosis, afebrile
-as pt was recently hospitalized change abx to Vanco/Zosyn, MRSA swab pending
-pulm/ID following
-cont Rocephin/Azithro
-was on 5L NC O2, now weaned to RA
Acute metabolic encephalopathy:
-due to infection
-on prior admission concerns for syncope vs seizure
-MRI brain above
-neuro c/s placed
-check EEG
Elevated LFTs:
-GI following
-LFTs improving
-acute viral hepatitis panel NEG
-Abd U/S: Hepatomegaly and echogenicity in the liver, compatible with underlying hepatocellular disease, which most commonly relates to fatty infiltration of the liver.
-as per GI patient with chronically elevated LFTs. Acute increase in LFTs likely due to infection in the setting of fatty liver disease.
-follow ceruloplasmin, AMA, transferrin
-outpatient FRANTZ, immunoglobulins, anti-smooth muscle antibody, complete iron studies, alpha 1 antitrypsin
-check MRI abd for completeness
DM2:
-a1c 11.6%
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
-cont with Lantus 25U, premeal Novolog 12U
Adrenal insufficiency:
-chronic with acute exac due to PNA
-cont stress dose steroids (can taper 25mg IV Q8H)
-appreciate endocrine
Other problems:
Hypothyroidism: h/o thyroidectomy, cont Levoxyl
HLD: cont Vascepa/fenofibrate
Gout: cont allopurinol
vitamin D deficiency
h/o medulloblastoma with radiation at age 1
Transfer to [facility].
[2025-06-15] MEDS: NOVOLOG FLEXPEN SC (11:09)
[2025-06-15] MEDS: NOVOLOG FLEXPEN 12 UNITS SC ×3 (11:36→18:28)
[2025-06-15] MEDS: NOVOLOG FLEXPEN-LOW RESISTANCE 5 UNITS SC (14:13)
[2025-06-15] MEDS: ROCEPHIN 2000 MG IV (14:14)
[2025-06-15] MEDS: STERILE WATER FOR INJECTION 20 ML IV (14:14)
--- NOTE | 2025-06-15 14:16 | W.PN.GI.CBS2 ---
Today's Communication / Plan
-
monitor LFTs, gi signing off, outpatient follow up
Assessment / Plan
-
40-year-old male past medical history of medulloblastoma with radiation, chemo, prior surgery, adrenal insufficiency from hypopituitary is him on chronic steroids with recent admission June 10 to June 13 with loss of consciousness and fall
with syncope and seizure with left kidney and nosebleed and concern for possible respiratory infection and adrenal crisis with fever with negative infectious workup. After being discharged, he came back in as he continued to have issues being
aphasic, and was not alert or oriented so the family brought back in. On this admission, he was found to have pneumonia on imaging.
GIs been consulted for abnormal LFTs. Reviewing the trend, he has had abnormal LFTs as far back as 2022. His AST was as high as 77, ALT as high as 154 in the past. On his readmission on June 11, his AST was 123, ALT 204 which was higher than
previous. His bilirubin was also high at 1.5 which has been high in the past as far back as 2022. Direct now checked normal supporting Gilbert's. His current AST is 167, ALT 189, alkaline phosphatase 135. Total bilirubin 2.2. He had an
ultrasound done on June 12 which did show fatty liver. Hepatitis workup was done and showed no hep C, no acute hep A, no acute hep B with indeterminate hep B vaccination status.
Most likely, I suspect his bilirubin is due to Gilbert's. I suspect his chronic LFT abnormality is due to metabolic associated steatotic liver disease. His A 1C is elevated as well and does have history of diabetes. I suspect this acute rise is
due to the underlying infection; differential includes DILI. A partial liver workup was ordered by the primary team including ceruloplasmin, AMA, transferrin. At some interval, he will need a full liver workup with autoimmune including FRANTZ,
immunoglobulins, anti-smooth muscle antibody, remainder of iron studies, alpha 1 antitrypsin. LFTs today are improving, this can be done outpatient. I sent a message to our office to set up follow up with us in 1 month. Upon discharge recommend
repeat LFTs 1-2 weeks ensure ongoing downtrend.
I d/w primary team resident. GI will sign off. Pls call with ?s or changes in clinical status.
Subjective
Subjective
Date of Service: June 15, 2025
no abd pain no gi complaints
Objective
Data Reviewed
Laboratory Data:
Laboratory Results
06/15/25 05:34
06/15/25 05:34
Laboratory Results
PT 15.1 Sec (11.4-14.6) H 06/15/25 05:34
INR 1.14 06/15/25 05:34
Magnesium 2.2 mg/dl (1.6-2.3) 06/14/25 05:12
Total Bilirubin 1.0 mg/dl (0.2-1.3) D 06/15/25 05:34
AST 65 U/L (17-59) H 06/15/25 05:34
ALT 147 U/L (0-50) H 06/15/25 05:34
Alkaline Phosphatase 130 U/L (38-126) H 06/15/25 05:34
Vital Signs and I&O:
Vital Signs
Temp Pulse Resp BP Pulse Ox
97.6 F 63 13 106/82 94
06/15/25 11:55 06/15/25 06:15 06/15/25 06:15 06/15/25 06:03 06/15/25 06:15
I&O
06/14/25 06/15/25 06/16/25
06:59 06:59 06:59
Intake Total 480 / 480
Output Total 1999 / 1999
Balance -1520 / -1520
Physical Exam
Physical Exam
GI: Non Distended and Non Tender
[2025-06-15 14:19] LABS: Glucose - Point of Care 275 mg/dl (70-99)
--- NOTE | 2025-06-15 14:46 | CM ---
Chart reviewed and patient is independent with adl's and ambulation, no dme, ambulating hallway, plan is to home with family when stable.
Plan; Home with spouse when stable.
[2025-06-15] MEDS: SOLU-CORTEF 25 MG IV ×2 (15:56→23:31)
[2025-06-15] MEDS: FLORINEF 0.1 MG PO (15:56)
--- NOTE | 2025-06-15 16:25 | PTCARENOTE ---
Rec'd pt this AM. downgraded to M/S. took a shower, up at [facility], walking in halls, no complaints of pain or dizziness. 98% on RA. gave report to Janette on 3W. pt transferred via wheelchair.
--- NOTE | 2025-06-15 16:30 | PTCARENOTE ---
1630- Pt received from IMU via wheelchair. Pt ambulated from wheelchair to room 339-2 with steady gait. pt oriented to staff, environment and call light system. All needs met
[2025-06-15 17:21] LABS: Glucose - Point of Care 306 mg/dl (70-99)
[2025-06-15] MEDS: LOVENOX 40 MG SC (17:57)
[2025-06-15] MEDS: NOVOLOG FLEXPEN-LOW RESISTANCE 7 UNITS SC (18:28)
[2025-06-15] MEDS: LANTUS 0.25 UNITS SC (22:10)
[2025-06-15 22:11] LABS: Glucose - Point of Care 205 mg/dl (70-99)
[2025-06-16 01:35] LABS: Mitochondrial M2 Ab, IgG 1.4 Units (0.0-24.9)
[2025-06-16 05:48] LABS: Hematocrit 26.3 % (39.0-52.0); Hemoglobin 9.1 g/dL (13.0-18.0); Mean Corp Hgb Conc. 34.6 g/dL (33.0-37.0); Mean Corpuscular Volume 78.7 fL (80.0-94.0); Platelet Count 248 10^3/uL (130-400); Red Cell Dist. Width 13.4 % (11.5-14.5)
[2025-06-16 06:01] LABS: ALT (SGPT) 101 U/L (0-50); AST (SGOT) 31 U/L (17-59); Albumin 4.0 g/dl (3.5-5.0); Alkaline Phosphatase 113 U/L (38-126); Blood Urea Nitrogen 23 mg/dl (9-20); Calcium 7.9 mg/dl (8.4-10.2); Carbon Dioxide 31 mmol/L (22-30); Chloride 98 mmol/L (98-107); Estimated Creatinine Clearance > 125 ml/min; Glucose 129 mg/dl (70-99); Potassium 3.6 mmol/L (3.5-5.1); Sodium 136 mmol/L (135-145); Total Protein 6.7 g/dl (6.3-8.2); eGFR > 60.00
[2025-06-16] MEDS: SYNTHROID 137 MCG PO (06:16)
[2025-06-16 07:05] LABS: Absolute Neutrophils -Man Diff 7.8 10^3/uL (1.4-6.5)
[2025-06-16 07:06] LABS: Anisocytosis 1+; Normal RBC Morphology No; Platelets Checked Yes; Total Cells Counted 100
[2025-06-16 07:14] LABS: Transferrin 176 mg/dL (200-360)
--- NOTE | 2025-06-16 07:40 | PN.DE.MGMTRT ---
Insulin Management
- -
06/16/2025: Diabetes Management Follow up
Patient discharged 06/13, readmitted in 2 hours with change in mental status, R upper lobe pneumonia. 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 Was discharged
on insulin regimen but returned before starting any home insulin. Prior to 8:30 admission was taking 1000 mg metformin BID. A1C on admission 11.6%, cr .8, eGFR > 60.
Patient is awake alert and oriented,sitting up @ edge of bed, able to discuss diabetes care.
Pt remains on steroids- Hydrocortisone 25mg Q8hrs, contributing to hyperglycemia.
Patient received 25 units Lantus @ hs, fasting glucose today 129 V, 106 POC. Will cont HS Lantus 25 units.
AC NovoLog was increased to 12 units yesterday due to persistent Hyperglycemia. Premeal glucose remained elevated > 200, range was 258 to 308 yesterday.
Will increase AC NovoLog to 15 units. Patient to begin self injections of insulin.
He was provided with a new meter- Contour, RX for test strips and lancets are in ambulatory orders.
Discussed with nurse. Will cont to follow.
Diabetes History
- -
Type of Diabetes: 2 requiring insulin
Pre-Admission Diabetes Regimen
06/16/25
05:02
Creatinine 0.8
Insulin Pump Settings
IP Diabetes Regimen
06/15/25 06/15/25 06/15/25
09:16 14:08 17:18
Glucose
POC Glucose 258 H 275 H 306 H
06/15/25 06/16/25
22:10 05:02
Glucose 129 H
POC Glucose 205 H
Patient Education
[2025-06-16 07:55] VITALS: BP 151/75
[2025-06-16 08:03] LABS: Glucose - Point of Care 106 mg/dl (70-99)
[2025-06-16] MEDS: NOVOLOG FLEXPEN-LOW RESISTANCE SC (08:21)
[2025-06-16] MEDS: SOLU-CORTEF 25 MG IV (08:24)
[2025-06-16] MEDS: NOVOLOG FLEXPEN 15 UNITS SC ×2 (08:24→13:05)
[2025-06-16] MEDS: TRICOR 145 MG PO (08:25)
[2025-06-16] MEDS: FLORINEF 0.1 MG PO (08:25)
[2025-06-16] MEDS: ZITHROMAX 500 MG PO (08:25)
[2025-06-16] MEDS: ASPIR LOW (ENTERIC COATED) 81 MG PO (08:25)
--- NOTE | 2025-06-16 08:37 | W.PN.ID1 ---
Addendum entered and electronically signed by Gina Moseley MD 06/16/25 11:54:
I saw and evaluated the patient. I reviewed the resident�s note and agree with findings and plan as documented in the resident�s note.
S: Feeling well.
O:Lung exam: clear
A: CAP
P: DC home to complete 7d course amoxicillin and azithromycin.
Original Note:
Date of Service
Date of Service: June 16, 2025
AVSS. Offers no new complaints.
Today's Communication
At time of discharge, transition to amoxicillin 1g po q8h and azithromycin 500mg po daily through 06/20/25
Assessment / Plan
# Right sided pneumonia; RUL
# Leukocytosis; slightly increased
# Adrenal insufficiency currently on IV hydrocortisone
# Transaminitis; improving
# Recent URI/acute sinusitis
# Hyponatremia- resolved
# Diabetes mellitus: Uncontrolled
- Unlikely that pneumonia is hospital acquired
- Given the patient had a syncopal episode and was admitted after that on 06/10/2025 there is a possibility that this could be aspiration during the episode
- There was 1 episode of fever (102.1) on 06/10/2025
- Influenza and COVID-negative from 06/10/2025
- Urine Legionella and urine strep pneumo antigens negative
- MRSA negative
- Supplemental O2 weaned off
Sputum cultures if able currently patient is not producing any sputum
Blood cultures pending; NGTD
Continue with current abx; will treat as CAP.
Currently on IV ceftriaxone 2g q24 and azithromycin 500mg daily can switch to amoxicillin 1g q8 and continue azithro 500mg q24 to complete total 7 days of abx.
Chief Complaint
-: Pneumonia
Subjective / Review of Systems
Review of Systems: No Fever, No Chills, No Headache, No Swollen Lymph Nodes, No Cough, No Chest Pain, No Abdominal Pain, No Nausea, No Vomiting, No Diarrhea, No Dysuria, No Joint Pain and No Skin Rash
Vital Signs / Physical Exam
Vital Signs
Vital Signs
Temp Pulse Resp BP Pulse Ox
97.6 F 64 16 151/75 96
06/16/25 07:55 06/16/25 07:55 06/16/25 07:55 06/16/25 07:55 06/16/25 07:55
Physical Exam
Constitutional: No Acute Distress and Comfortable
Cardiovascular: Regular Rate and S1/S2
Pulmonary: Clear, Symmetric and Non Labored; Negative Wheezes, Rales or Rhonchi
Gastrointestinal: Soft and Non Tender
Skin: Warm and Dry
Neurological: Awake, Alert and Oriented
Psychological: Calm
Objective Data
Lab Data
Lab Results
06/16/25 05:02
06/16/25 05:02
PT 15.1 Sec (11.4-14.6) H 06/15/25 05:34
INR 1.14 06/15/25 05:34
Estimated Creat Clear > 125 ml/min 06/16/25 05:02
Total Bilirubin 0.6 mg/dl (0.2-1.3) 06/16/25 05:02
AST 31 U/L (17-59) 06/16/25 05:02
ALT 101 U/L (0-50) H 06/16/25 05:02
Alkaline Phosphatase 113 U/L (38-126) 06/16/25 05:02
Most recent labs reviewed.
Micro Results:
06/14/25 13:30 Blood Culture - Preliminary
Blood/Venous No Growth in 24 hours- Final report to follow
06/14/25 12:28 Blood Culture - Preliminary
Blood/Venous No Growth in 24 hours- Final report to follow
06/14/25 16:53 Legionella Urinary Antigen - Final
Urine Negative for Legionella pneumophila Serogroup 1 antigen.
A negative result does not rule out the possiblity of
Legionella infection due to other serogroups or species of
Legionella. Clinical correlation is recommended.
06/14/25 16:53 Streptococcus pneumoniae Antigen (M - Final
Urine Negative for Streptococcus pneumoniae antigen.
A negative result does not exclude infection with
Streptococcus pneumoniae. Clinical correlation is
recommended.
06/14/25 05:12 Nasal Screen MRSA (PCR) - Final
Nose MRSA not detected - performed by PCR methodology.
CT of the head 06/13/25 shows no acute intracranial process but a small left frontal scalp soft tissue contusion.
Chest Xray 06/13/25: There is an opacity projecting over the lateral right upper lung. No pleural effusion or pneumothorax.
CT chest 06/13/25: Right upper lobe pneumonia.
Other pulmonary opacities suggesting pneumonia and/or aspiration. Imaging follow-up to resolution is recommended.
Trace right pleural effusion.
[2025-06-16] MEDS: NOVOLOG FLEXPEN SC (09:29)
--- NOTE | 2025-06-16 10:14 | W.PN.UPDATE ---
Addendum entered and electronically signed by Latrell Savage MD 06/16/25 13:35:
Total time spent on d/c = 42 min. This included today's physical exam, progress note, review of laboratory and diagnostic data, preparation of discharge documents and prescriptions, and discussions about the pt's hospital course and discharge plan
with the patient and other director of medical services involved in the patient's care.
Original Note:
Update Note
Progress Note Update
I saw and evaluated the patient. I reviewed the resident�s note and agree with findings and plan as documented in the resident�s note.
Denies CP/SOB. No new complaints..
Gen: NAD, Awake and alert
Eyes: EOMI, PERRLA, no scleral icterus.
Neck: supple.
CV: Remains RRR, +S1/S2, no m/r/g.
Resp: Remains CTAB
Abd: Remains +BS, soft, NT, ND
Skin: No rashes.
Neuro: CN 2-12 intact, non-focal.
Psych: Normal mood and affect.
CXR: There is a new opacity projecting of the lateral right upper lung, possibly overlying soft tissue although pneumonia is possible. Consider dedicated CT chest for further evaluation.
CT chest: Right upper lobe pneumonia. Other pulmonary opacities suggesting pneumonia and/or aspiration. Imaging follow-up to resolution is recommended. Trace right pleural effusion.
MRI brain: No acute intracranial abnormality noted. 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 There are mild/moderate periventricular and
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 Likely acute pansinusitis.
MRI abd w/wo: No MRI evidence for an acute abnormality of the abdomen. Hepatic steatosis. Hepatosplenomegaly. Multiple bilateral renal cysts, including one in the right upper pole that is a complex proteinaceous/hemorrhagic cyst.
Acute hypoxemic respiratory failure due to PNA:
-acute metabolic encephalopathy on admission
-Pneumonia was possibly due to aspiration as the patient had a syncopal event on 06/10
-in the setting of adrenal insufficiency, currently on stress dose steroids
-BCxs from 06/10/25 NGTD, COVID/Flu 06/10/25 NEG
-minimal leukocytosis, now resolved
-afebrile
-was on 5L NC O2, now weaned to RA
-doubt hospital-acquired pneumonia
-pulm/ID following
-cont Rocephin/Azithro while hospitalized, on d/c transition to amoxicillin 1g PO Q8H and Azithro 500mg daily through 06/20/25
Acute metabolic encephalopathy:
-due to infection
-on prior admission concerns for syncope vs seizure
-MRI brain above
-neuro saw in c/s
-MRI brain above
-EEG without seizure activity
-pt with orthostatic hypotension as per neuro, started on Florinef and abd binder recommended
Elevated LFTs:
-GI following
-LFTs improving
-acute viral hepatitis panel NEG
-Abd U/S: Hepatomegaly and echogenicity in the liver, compatible with underlying hepatocellular disease, which most commonly relates to fatty infiltration of the liver.
-as per GI patient with chronically elevated LFTs. Acute increase in LFTs likely due to infection in the setting of fatty liver disease.
-ceruloplasmin elevated at 40, AMA normal, transferrin low at 176
-outpatient FRANTZ, immunoglobulins, anti-smooth muscle antibody, complete iron studies, alpha 1 antitrypsin
-MRI abd without acute pathology as above
DM2:
-a1c 11.6%
-diabetes [employer] TECHNIC[employer] following
-cont with Lantus 25U, premeal Novolog 15U
Adrenal insufficiency:
-chronic with acute exac due to PNA
-cont stress dose steroids until d/c. On d/c will give hydrocortisone 20mg BID x 3 days then taper down to 10mg BID (baseline dose)
-appreciate endocrine
Other problems:
Hypothyroidism: h/o thyroidectomy, cont Levoxyl
HLD: cont Vascepa/fenofibrate
Gout: cont allopurinol
vitamin D deficiency
h/o medulloblastoma with radiation at age 1
Medically cleared for d/c.
Total time spent on d/c = 34 min. This included today's physical exam, progress note, review of laboratory and diagnostic data, preparation of discharge documents and prescriptions, and discussions about the pt's hospital course and discharge plan
with the patient and other director of medical services involved in the patient's care.
--- NOTE | 2025-06-16 10:37 | W.DCSUMMARY ---
Discharge Summary
Discharge Data
Date of Admission: 06/13/25
Date of Discharge: 06/16/25
Total time spent discharging patient (in min): 55
-
Pending Results: No
Hospital Course
Primary:
Pneumonia
Adrenal crisis
Diabetes
Transaminitis
Elevated ceruloplasmin
Secondary:
Adrenal insufficiency
Syncope
Possible seizure
Steatosis
Gilbert's disease
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
admission with syncopal episode found to be in adrenal insufficiency and possible seizure status post discharge this evening will presents back to the hospital for ongoing weakness, lethargy and somnolence at the time of discharge. Here in the
emergency department he is hemodynamically stable but does appear to have respiratory depression with some CO2 retention. His labs are otherwise unremarkable except for a sodium of 130. Chest x-ray shows a new opacification of the right lung. His
infectious workup over the last 2 days have been negative. Serum glucose measurements without hypoglycemia or DKA. Now on bipap for somnolence
#Pneumonia - AMS likely from hypoxemia or presyncopal (adrenal insufficiency)
No recurrence of fever since 06/10. Bcx ngtd. Viral studies neg. Initial CXR was normal. Now CXR with a new opacity over lateral right upper lung. CT chest confirming dense RUL lung consolidation with multifocal infiltrates suggestive of
multifocal pna.
- ID consult: IV ceftriaxone/azithromycin. Transition to oral amoxicillin from IV ceftriaxone at discharge for a total 7 days of antibiotics. Transition to amoxicillin 1g PO Q8H and Azithro 500mg daily through 06/20/25
MRSA swab: negative. Urine cx negative for strep pneumo and legionella
- Weaned from bipap to room air
- vbg, ammonia level, follow prior cultures
MRI brain: Fahr's disease (calcifications)
- neurology consulted
- syncope w/u essentially completed with normal Echo
- pulm consult: Pulmonary/radiographic follow-up of infiltrate. Discussed with patient and father and information left in chart
- GI consulted: outpatient follow-up, including labs of FRANTZ, immunoglobulins, anti-smooth muscle antibody, complete iron studies, alpha 1 antitrypsin
# Secondary adrenal insufficiency - Random Serum cortisol 12.1, increased from prior but still low given stress. Somnolent but HD stable. Na 130.
- tapering solu-cortef from 100 mg q8h to 50 q 8
- at discharge: hydrocortisone 20mg BID x 3 days then taper down to 10mg BID (baseline dose)
- endocrinology consulted
#DM II
Metformin. Lantus 20 hs, premeal aspart 8 units
- sliding scale insulin moderate resistance
#Elevated LFTs - Fatty liver on U/S. Negative viral hepatitis w/u
Elevated during previous admission. LFTs decreasing overall
Abdominal MRI: MASLD
Elevated ceruloplasmin 40
Elevated transferrin 176
Normal AMA 1.4
- given age, getting additional screening serologies including ceruloplasmin, transferrin, and ama
- non-emergent outpatient liver eval for MASLD
#Hypothyroid
- continued levothyroxine
Discharge Plan
-
Patient Disposition: Home (Routine Discharge)
Discharge Diagnosis/Procedures: Primary:
Pneumonia
Adrenal crisis
Diabetes
Transaminitis
Elevated ceruloplasmin
Secondary:
Adrenal insufficiency
Syncope
Possible seizure
Steatosis
Gilbert's disease
Condition: Good
Diet: Diabetic, Carb Controlled
Activity: No restrictions
Driving Restrictions: As prior to admission
Stand Alone Forms: Return to Work
Referrals:
Stevie Potts MD [Active, Pulmonary Medicine] - in two to three weeks
Referral Note: May see COSMETIC MAKER after DC and then with me in 2-3 months.
So Burns MD [Non-Admitting Privileges, Internal Medicine] - in two to three weeks
Referral Note: DM, AI, hypothyroid
Chin Burt MD [Active, Gastroenterology]
Referral Note: call to arrange GI follow up for elevated LFT's -- if remains elevated will need further liver testing
Additional Discharge Medication Instructions: Please take the antibiotics amoxicillin 1 g orally every 8 hours and azithromycin 500 mg once daily until June 20, 2025.
For the hydrocortisone taper, please take hydrocortisone 20 mg twice a day for 3 days. Then please take hydrocortisone 10 mg twice a day from then on. Please follow-up with your gambling broker Dr. Burns.
Please repeat the liver function test in 1 to 2 weeks. Follow-up with GI in 1 month to complete the liver workup: antinuclear antibody, immunoglobulins, anti-smooth muscle antibody, complete iron studies, alpha-1 antitrypsin.
Please follow-up with pulmonology in 2 to 3 weeks to get repeat imaging to check if the lung tissue changes from pneumonia resolve.
Prescriptions:
New
(DME) Contour Next Test Strips Strip
Qty: 200 1RF
Rx Instructions:
Test before each meal and HS as directed, E11.65
(DME) lancets [Color Lancets] 21 gauge Misc
Qty: 200 1RF
Rx Instructions:
Test before each meal and HS as directed, E11.65
Continued
levothyroxine 137 mcg Tablet
137 mcg PO DAILY
fenofibrate 160 mg Tablet
160 mg PO DAILY
icosapent ethyl [Vascepa] 1 gram Capsule
2 g PO BID
(DME) pen needle, diabetic 32 gauge x ' needle
See Rx Instructions .Route Qty: 100 0RF
Rx Instructions:
As directed
aspirin 81 mg Tablet
81 mg PO DAILY
No Action
metformin 1,000 mg Tablet
1,000 mg PO DAILY
testosterone gel
20 mg topical HS
hydrocortisone 5 mg tablet
5 mg PO QPM Qty: 30 0RF
hydrocortisone 20 mg Tablet
20 mg PO DAILY Qty: 30 0RF
hydrocortisone 10 mg Tablet
10 mg PO DAILY@1500 Qty: 30 0RF
insulin aspart U-100 [Novolog FlexPen U-100 Insulin] 100 unit/mL (3 mL) Insulin Pen
8 unit SC AC Qty: 5 0RF
insulin glargine [Lantus Solostar U-100 Insulin] 100 unit/mL (3 mL) Insulin Pen
20 unit SC HS Qty: 5 0RF
Discharge Date and Time
Print Language: [id number]
--- NOTE | 2025-06-16 10:55 | W.PN.HOSP.TC ---
Addendum entered and electronically signed by Neelima Daley MD, Resident 06/16/25 12:24:
Patient's was called in an attempt to update her. 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
Original Note:
Today's Communication/Plan
-
Patient said he is feeling great.
Patient's requested return to work note will be printed and given.
Assessment / Plan
Assessment / Plan
IMPRESSION:
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
admission with syncopal episode found to be in adrenal insufficiency and possible seizure status post discharge this evening will presents back to the hospital for ongoing weakness, lethargy and somnolence at the time of discharge. Here in the
emergency department he is hemodynamically stable but does appear to have respiratory depression with some CO2 retention. His labs are otherwise unremarkable except for a sodium of 130. Chest x-ray shows a new opacification of the right lung. His
infectious workup over the last 2 days have been negative. Serum glucose measurements without hypoglycemia or DKA. Now on bipap for somnolence
PLAN:
#Pneumonia - AMS likely from hypoxemia or presyncopal (adrenal insufficiency)
No recurrence of fever since 06/10. Bcx ngtd. Viral studies neg. Initial CXR was normal. Now CXR with a new opacity over lateral right upper lung. CT chest confirming dense RUL lung consolidation with multifocal infiltrates suggestive of
multifocal pna.
- ID consult: IV ceftriaxone/azithromycin. Transition to oral amoxicillin from IV ceftriaxone at discharge for a total 7 days of antibiotics. Transition to amoxicillin 1g PO Q8H and Azithro 500mg daily through 06/20/25
MRSA swab: negative. Urine cx negative for strep pneumo and legionella
- Weaned from bipap to room air
- vbg, ammonia level, follow prior cultures
MRI brain: Fahr's disease (calcifications)
- neurology consulted
- syncope w/u essentially completed with normal Echo
- pulm consult: Pulmonary/radiographic follow-up of infiltrate. Discussed with patient and father and information left in chart
- GI consulted: outpatient follow-up, including labs of FRANTZ, immunoglobulins, anti-smooth muscle antibody, complete iron studies, alpha 1 antitrypsin
# Secondary adrenal insufficiency - Random Serum cortisol 12.1, increased from prior but still low given stress. Somnolent but HD stable. Na 130.
- tapering solu-cortef from 100 mg q8h to 50 q 8
- at discharge: hydrocortisone 20mg BID x 3 days then taper down to 10mg BID (baseline dose)
- endocrinology consulted
#DM II
Metformin. Lantus 20 hs, premeal aspart 8 units
- sliding scale insulin moderate resistance
#Elevated LFTs - Fatty liver on U/S. Negative viral hepatitis w/u
Elevated during previous admission. LFTs decreasing overall
Abdominal MRI: MASLD
Elevated ceruloplasmin 40
Elevated transferrin 176
Normal AMA 1.4
- given age, getting additional screening serologies including ceruloplasmin, transferrin, and ama
- non-emergent outpatient liver eval for MASLD
#Hypothyroid
- continued levothyroxine
DVT PPX - lovenox sq
Code status - Full code
Anticipated Discharge: Today
Subjective/Interval History
-
Date of Service: June 16, 2025
No acute events overnight. Patient had no complaints. Patient stated he was feeling great. Requested return to work note.
Objective Data
-
Labs:
Laboratory Results
06/16/25
05:02
WBC 10.2
Hgb 9.1 L
Hct 26.3 L
Plt Count 248
Sodium 136
Potassium 3.6
Chloride 98
Carbon Dioxide 31 H
BUN 23 H
Creatinine 0.8
Glucose 129 H
Calcium 7.9 L
Total Bilirubin 0.6
AST 31
ALT 101 H
Alkaline Phosphatase 113
Vital Signs:
Vital Signs
Temp Pulse Resp BP Pulse Ox
97.6 F 64 16 151/75 96
06/16/25 07:55 06/16/25 07:55 06/16/25 07:55 06/16/25 07:55 06/16/25 07:55
I&O
06/15/25 06/16/25 06/17/25
06:59 06:59 06:59
Intake Total 480 / 480
Output Total 1999
Balance -1520 / -1520
Review of Systems
-
History Source: Patient
Constitutional: Reports No Symptoms
EENT: Reports No Symptoms Reported
Respiratory: Reports No Symptoms
Cardiac: Reports No Symptoms
Abdomen/GI: Reports No Symptoms
Musculoskeletal: Reports No Symptoms
Skin: Reports No Symptoms
Neuro: Reports No Symptoms
Physical Exam
-
General: Well Developed, Well Nourished, No Apparent Distress, Comfortable and Other (Temporal wasting with cheek fullness; moving actively in bed)
HEENT: Normocephalic
Respiratory: Clear to Auscultation
Cardiac: Regular Rhythm and S1/S2
GI: Soft, Nontender, Nondistended and Normal Bowel Sounds
Musculoskeletal: No Clubbing, No Cyanosis and No Edema
Skin: Warm and Dry
Neuro: Awake, Alert and Oriented
Psych: Calm
Data Reviewed
-
Diagnostic Radiology: Report Reviewed by me
MRI: Report Reviewed by me
Medical Tests (Nuc Med, Echo etc): Report Reviewed by me
Labs: Labs Reviewed by me
[2025-06-16 11:39] LABS: Glucose - Point of Care 172 mg/dl (70-99)
--- NOTE | 2025-06-16 11:58 | W.PN.PUL3 ---
Today's Communication / Plan
-
Oral antibiotics
Discharge today
Recommend outpatient pulmonary follow-up to assure clearance of infiltrate. Patient aware per
Information left in the chart
Sign off
Assessment
-
40-year-old man with history of adrenal insufficiency, recent discharge from the hospital 06/12/2025 after being evaluated for syncopal/seizure episode associated with upper respiratory infection. He was observed in the hospital for about 48 hours
and did not have any fevers, chest x-ray was negative, cultures were negative. Patient was discharged and immediately return home with extreme weakness, sleepiness, left facial droop. Change in mental status. Brought back for evaluation. Repeat
chest x-ray demonstrated right upper lobe infiltrate. CT chest confirmed right upper lobe abnormality-we were consulted for evaluation of abnormal CT chest.
Right upper lobe pneumonia.
Chest x-ray 06/13/2025: Reviewed-right upper lobe pleural-based infiltrate.
CT chest reviewed: 06/13/2025 right upper lobe dense consolidation, bilateral trace pleural effusions, bibasilar opacities suggestive of subsegmental atelectasis.
Hypoxemic respiratory insufficiency secondary to above-currently on 4 L.
ABG VBG 06/14/2025: 7.37/54/142. Does not suggest decompensated hypercapnia.
Low-grade fever
Leukocytosis
Suspected adrenal crisis secondary to above.
Transaminitis-prior right upper ultrasound with fatty liver changes.
Anemia
Conditions present prior admission:
History of adrenal insufficiency-hypopituitarism.
Type 2 diabetes
History of thyroidectomy for thyroid cancer, with subsequent hypothyroidism
Hard of hearing
History of medulloblastoma-status postsurgery/radiation and chemotherapy at age 1.
Transaminitis: Hepatomegaly-likely fatty liver disease.
Assessment and plan:
Imaging compatible with pneumonia-possibly bacterial.
Unclear if these was evolving During last admission versus this was an aspiration event after a syncopal episode.
Multiple x-rays reviewed.
Chest x-ray from 06/10/2025 when he was admitted to the hospital negative for infiltrate.
Current imaging of the chest with right upper lobe dense infiltrate as well as trace bilateral pleural effusion with subsegmental atelectasis.
-
Oxygen has been discontinued
Remains afebrile
-
Sputum culture if able-currently not producing.
Microbiology negative.
ID consulted -oral antibiotics to complete 7 days.
MRSA screening negative.
Blood cultures from 06/10/2025 were negative.
Blood cultures 06/14/2025 - pending.
Sputum culture if able- Not producing
Influenza screening - 06/10/2025
COVID-negative 06/10/2025
-
Continue steroids per endocrine for adrenal insufficiency.
-
Encouraged incentive spirometry-there is bibasilar subsegmental atelectasis
Lungs relatively clear.
Increase activity as able
-
Patient denies history of pulmonary disease.
-
Increased LFTs: Right upper quadrant ultrasound suggestive of fatty liver
Improving 06/15/2025
GI has been consulted
Hepatitis panel negative
-
DVT prophylaxis-Lovenox
-
Dr. Castano updated father at the bedside, reviewed images with him.
Discussed with Dr. Savage as well- 06/14/2025
-
Recommend pulmonary follow up- needs radiographic follow up of infiltrate- this was discussed with patient and father by Dr. Castano, information will be left on chart.
Discharge today, sign off
Data reviewed:
Echocardiogram 06/13/2025:
1. No biventricular size and systolic function.
2. No signficant valve disease.
3. No prior study available for comparison.
-
CT chest 06/13/2025:
No axillary, mediastinal, or hilar lymphadenopathy.
The heart is normal in size. No pericardial effusion. No coronary artery calcifications.
LUNGS: Right upper lobe consolidative opacity with air bronchograms, most compatible with pneumonia. Smaller scattered nodular opacities noted in both lungs with a few in the bilateral upper lobes. Peribronchial opacities in the basilar aspects of
the bilateral lower lobes, right greater than left. Trace right pleural effusion. No pneumothorax. The trachea and central airways are patent.
Subjective Data
-
Date of Service:
Date of Service: June 16, 2025
Chief Complaint: Pulmonary Follow Up (Pneumonia)
Subjective:
Patient feels great
Denies phlegm production
Denies chest pain
Denies shortness of breath
Review of Systems
Cardiopulmonary: Dyspnea (n) and Dyspnea on Exertion (n)
GI: Abdominal Pain (n) and Nausea (n)
Objective Data
Data Reviewed
Vital Signs / I&O / Oxygen:
Vital Signs
Temp Pulse Resp BP Pulse Ox
97.6 F 64 16 151/75 96
06/16/25 07:55 06/16/25 07:55 06/16/25 07:55 06/16/25 07:55 06/16/25 07:55
Intake and Output
06/15/25 06/16/25 06/17/25
06:59 06:59 06:59
Intake Total 480 / 480
Output Total 2000 / 2000
Balance -1520 / -1520
SaO2 96
Nasal Cannula flow liters per 2
minute
Physical Exam
General: Comfortable
HEENT: Normocephalic
Cardiovascular: S1-S2
Respiratory: Clear and Non-Labored Respirations
GI: Soft and Non Distended
Neurology: Awake, Oriented and No Motor Deficits
Skin: Warm
Labs/Micro/Reports
Lab Data
06/16/25 05:02
06/16/25 05:02
Microbiology
06/14/25 13:30 Blood/Venous Blood Culture - Preliminary
No Growth in 24 hours- Final report to follow
06/14/25 12:28 Blood/Venous Blood Culture - Preliminary
No Growth in 24 hours- Final report to follow
06/14/25 16:53 Urine Legionella Urinary Antigen - Final
Negative for Legionella pneumophila Serogroup 1 antigen.
A negative result does not rule out the possiblity of
Legionella infection due to other serogroups or species of
Legionella. Clinical correlation is recommended.
06/14/25 16:53 Urine Streptococcus pneumoniae Antigen (M - Final
Negative for Streptococcus pneumoniae antigen.
A negative result does not exclude infection with
Streptococcus pneumoniae. Clinical correlation is
recommended.
06/14/25 05:12 Nose Nasal Screen MRSA (PCR) - Final
MRSA not detected - performed by PCR methodology.
[2025-06-16] MEDS: NOVOLOG FLEXPEN-LOW RESISTANCE 1 UNITS SC (13:05)
[2025-06-16] MEDS: ROCEPHIN 2000 MG IV (13:05)
[2025-06-16] MEDS: STERILE WATER FOR INJECTION 20 ML IV (13:05)
--- NOTE | 2025-06-16 14:16 | CM ---
Home with spouse today.
Plan; Home no needs.
--- NOTE | 2025-06-17 07:39 | PTCARENOTE ---
called to confirm discharge paperwork from yesterday.
== END 2025-06-16 14:30 | disposition home or self-care (01) | DRG 177 ==
LOC: 3 WEST ACU 22:59
PROVIDERS: Nurse Practitioner Adult Health; ADMITTING PHYSICIAN Internal Medicine; ATTENDING PHYSICIAN Internal Medicine; CONSULT PHYSICIAN Internal Medicine Endocrinology, Diabetes & Metabolism; CONSULT PHYSICIAN Psychiatry & Neurology Neurology; EMERGENCY PHYSICIAN Emergency Medicine; OTHER PHYSICIAN Internal Medicine Critical Care Medicine; OTHER PHYSICIAN Internal Medicine Gastroenterology; OTHER PHYSICIAN Internal Medicine Infectious Disease
PROC: 5A09357 Assistance with Respiratory Ventilation, Less than 24 Consecutive Hours, Continuous Positive Airway Pressure (ICD-10-PCS; 2025-06-13)
DX: J69.0 Pneumonitis due to inhalation of food and vomit (principal); G93.41 Metabolic encephalopathy; J96.01 Acute respiratory failure with hypoxia; E27.49 Other adrenocortical insufficiency; E27.2 Addisonian crisis; E23.0 Hypopituitarism; J98.11 Atelectasis; E87.1 Hypo-osmolality and hyponatremia; E87.29 Other acidosis; J18.9 Pneumonia, unspecified organism; E89.0 Postprocedural hypothyroidism; H91.90 Unspecified hearing loss, unspecified ear; K76.0 Fatty (change of) liver, not elsewhere classified; D64.9 Anemia, unspecified; E11.65 Type 2 diabetes mellitus with hyperglycemia; E55.9 Vitamin D deficiency, unspecified; R04.0 Epistaxis; E80.4 Gilbert syndrome; R56.9 Unspecified convulsions; M10.9 Gout, unspecified; E78.5 Hyperlipidemia, unspecified; Z85.850 Personal history of malignant neoplasm of thyroid; Z85.841 Personal history of malignant neoplasm of brain; Z92.3 Personal history of irradiation; Z92.21 Personal history of antineoplastic chemotherapy; Z79.890 Hormone replacement therapy; Z79.84 Long term (current) use of oral hypoglycemic drugs; Z79.52 Long term (current) use of systemic steroids; Z79.82 Long term (current) use of aspirin; Z79.4 Long term (current) use of insulin
CPT/HCPCS: 70450; 70551; 71045; 71250; 74183; 80048; 80053; 82140; 82248; 82390; 82533; 82805; 82962; 83735; 84466; 85025; 85027; 85610; 86381; 87040; 87449; 87641; 87899; 94660; 95816; 96365; 96375; 99291; A9575